=== PATIENT | male | born 1945 | race Caucasian/White ===

== ENCOUNTER 2019-01-31 08:24 | Inpatient (IN) | payer MEDICARE, MEDICAID, SELFPAY ==
[2019-01-31] VITALS (28 sets, daily range): BP systolic 144–1986; BP diastolic 52–109; PULSE 37–89; RESP 14–23; TEMP 36.4–37.2; O2SAT 96–100; BMI 30.4; BMI 30.6
--- NOTE | 2019-01-31 | DI.MRI.S_ITS ---
PROCEDURE: MR STROKE Pre- and post-contrast brain MRI, non-contrast brain MR angiogram, pre- and postcontrast neck MR angiogram INDICATIONS: Left sided weakness TECHNIQUE: Brain: Noncontrast axial T1 spin echo, axial T2 fast spin echo, sagittal and axial FLAIR, coronal T2 fast spin echo, axial gradient echo, axial diffusion and ADC through the brain. After the administration of contrast, axial 3D VIBE of the cranial vasculature and brain. Brain MRA: Non-contrast 3-D time of flight MR angiogram, with multiple cjlqsph-rlfyauuow-aqleezdfri (MIP) reformats performed. Neck MRA: Axial and sagittal TruFISP through the neck. Coronal dynamic MR angiogram during administration of contrast in the arterial and venous phases, with 3-dimenstional iwuwgcd-lvtfjnhwx-suohlrifvt (MIP) reformats constructed from subtraction images. COMPARISON: [facility], CT, CT ANGIO HEAD AND NECK, 01/31/2019, 9:16. [facility], CT, CT CHEST WITHOUT CONTRAST, 01/28/2018, 18:45. [facility], CT, CT HEAD/BRAIN WO CON, 01/31/2019, 8:45. FINDINGS: Image quality: Excellent. BRAIN: CSF spaces: Ventricles are normal in size and shape. Basal cisterns are patent. No extra-axial fluid collections. Brain: No intracranial bleeds or mass effects. Spence-white matter interface is normal. Age-related volume loss and mild small vessel ischemic change. 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 Diffusion weighted images show a vague, subtle small area of increased signal in the region of the body of right caudate extending into the posterior limb of internal capsule, possibly representing a small subacute infarct.. Brainstem appears normal. Normal intravascular flow voids are present. No abnormal intracranial enhancement. Skull and face: Calvarial marrow signal is normal. Orbits appear normal. Sinuses: Sinuses and mastoids are clear. BRAIN MR ANGIOGRAM: No stenoses, aneurysms, or occlusions. NECK MR ANGIOGRAM: Classic 3 vessel arch anatomy. Great vessel origins are widely patent. Internal carotids are widely patent. Codominant vertebral arteries. IMPRESSION: BRAIN MRI: Question very subtle small area of subacute infarct in the body of right caudate and posterior limb of right internal capsule. Age-related volume loss and mild small vessel ischemic change. BRAIN MR ANGIOGRAM: Unremarkable NECK MR ANGIOGRAM: Unremarkable Dictated by: Jareth Cheng M.D. on 01/31/2019 at 16:47 Approved by: Jareth Cheng M.D. on 01/31/2019 at 16:59
--- NOTE | 2019-01-31 | DI.ECHO.S_ITS ---
[facility] +---------+ Hospital +---------+ : : [address] : : : : [place], [place] : : : : [id number] : : : : Phone: [phone] Echocardiogram Report + + :Name: BURTON MARTINEZ Study Date: 02/01/2019 Height: 76 in : :[facility] Exam Location: IS Weight: 251 lb : : Gender: Male BSA: 2.4 m2 : :: 1945 Age: 73 yrs BP: 161/75 mmHg: :Reason For Study: HTN emergency/ CVA : :Ordering Physician: Landy : :Hospitalist Performed By: Bethany Page : :Referring: CAMERON ESPINAL : + + Interpretation Summary Left ventricular systolic function is normal without focal wall motion abnormalities with the ejection fraction visually estimated to be 65-70%. Left ventricular wall thickness is at the upper limits of normal but diastolic function could not be accurately assessed due to atrial fibrillation. There has been no significant change since the previous study. The right ventricle is normal in size and function and is unchanged compared to the previous study. The right ventricular systolic pressure is estimated to be at least 27 mmHg based on an estimated right atrial pressure of 3 mm Hg and is similar compared to the previous study. The left atrium is severely dilated and has significantly increased in size since the prior echo exam while the right atrium is moderately dilated but is unchanged in size. There is no significant valvular heart disease. The aortic root is borderline dilated and measures slightly larger compared to the previous study. The ascending aorta is mildly enlarged but is unchanged in size. The patient was in atrial flutter with heart rates between 46-83 bpm during the exam which is somewhat slower compared to the previous study. Procedure: A two-dimensional transthoracic echocardiogram with color flow and Doppler was performed. The study quality was technically adequate. Comparison is made with the echocardiogram of 01/26/2018. The patient was in atrial flutter with heart rates between 46-83 bpm during the exam. This is somewhat slower compared to the previous study. Left Ventricle: The left ventricle is normal in size. Left ventricular wall thickness is at the upper limits of normal. Left ventricular systolic function is normal without focal wall motion abnormalities. The ejection fraction is estimated to be 65-70%. Diastolic function could not be accurately assessed due to atrial fibrillation. There has been no significant change since the previous study. Right Ventricle: The right ventricle is normal in size and function. This is unchanged compared to the previous study. Atria: The left atrium is severely dilated. The left atrium has significantly increased in size since the prior echo exam. The right atrium is moderately dilated. This is unchanged compared to the previous study. There is no Doppler evidence for an interatrial shunt. Mitral Valve: The mitral valve leaflets appear mildly thickened, but open well. There is trace mitral regurgitation. This is unchanged compared to the previous study. Aortic Valve: The aortic valve is trileaflet. The aortic valve is slightly calcified. The aortic valve opens well. No aortic regurgitation is present. Tricuspid Valve: The tricuspid valve is normal in structure and function. There is trace tricuspid regurgitation. The right ventricular systolic pressure is estimated to be at least 27 mmHg based on an estimated right atrial pressure of 3 mm Hg. This is similar compared to the previous study. Pulmonic Valve: The pulmonic valve is not well visualized. There is no significant valvular heart disease. Great Vessels: The aortic root is borderline dilated. This is slightly larger compared to the previous study. The ascending aorta is mildly enlarged. This is unchanged compared to the previous study. The pulmonary is not well visualized. The IVC is of normal diameter and collapses greater than 50% with a sniff. This suggests a low right atrial pressure of 3 mm Hg. Pericardium/ Pleura There is no pericardial effusion. There is no pleural effusion. MMode/2D Measurements & Calculations LVIDd: 5.0 cm LVOT diam: 2.1 cm LVIDs: 2.9 cm Ao root diam: 3.9 cm FS: 41.9 % asc Aorta Diam: 3.4 cm EPSS: 0.00 cm IVSd: 1.0 cm LVPWd: 1.0 cm LV watson. diameter/BSA (cm/m^2): 2.0 LV sys. diameter/BSA (cm/m^2): 1.2 LA A2 area: 38.5 cm2 RA long axis: 8.1 cm LA A4 area: 38.6 cm2 RA area: 32.8 cm2 LA length (vol): 9.0 cm RA vol: 113.1 ml LA vol: 140.2 ml RA : 46.4 ml/m2 LA vol index: 57.4 ml/m2 IVC diam: 2.1 cm RVD1 (basal): 4.3 cm RVD2 (mid): 3.3 cm TAPSE: 2.8 cm Doppler Measurements & Calculations Ao V2 max: 176.1 cm/sec LVOT Max Rolly: 99.9 cm/sec Ao V2 mean: 110.3 cm/sec LV V1 max P.0 mmHg Ao max P.4 mmHg LV V1 VTI: 20.9 cm Ao mean P.7 mmHg GIOVANNA(I,D): 2.2 cm2 Ao V2 VTI: 34.2 cm GIOVANNA(V,D): 2.0 cm2 sev ratio: 0.61 GIOVANNA indexed to BSA (cm^2/m^2): 0.89 MV E max rolly: 99.3 cm/sec TR max rolly: 246.3 cm/sec MV P1/2t: 80.4 msec TR max P.3 mmHg PA V2 max: 76.3 cm/sec PA V2 mean: 49.2 cm/sec PA mean P.1 mmHg PA Accel Time: 0.09 sec MV P1/2t max rolly: 98.6 cm/sec SV(LVOT): 74.6 ml MVA(P1/2t): 2.7 cm2 Reading Physician:MOON
--- NOTE | 2019-01-31 08:50 | ED.NEUROSD ---
HPI - Neuro Symptoms/Deficit General Chief Complaint: Neuro Symptoms/Deficit Stated Complaint: thinks he had a stroke Time Seen by Provider: 01/31/19 08:45 Source: patient Mode of arrival: ambulatory Limitations: no limitations History of Present Illness HPI Narrative: Patient is a 73-year-old male who presents with left leg weakness and unsteadiness. He states he woke up with leg weakness. He was normal last evening. He woke up got out of bed felt like he was a little unsteady on his feet. He has persistent left arm and hand weakness from head injury. He thought weakness in his legs would wear off. He walked into [place] when he tripped and fell hitting the left frontal part of his head. No nausea vomiting no loss of consciousness. He was unable to drive himself to the emergency department for further evaluation. Is actually noted to be quite hypertensive in the emergency department. Related Data Home Medications Medication Instructions Recorded Confirmed No Known Home Medications 01/31/19 01/31/19 Allergies Allergy/AdvReac Type Severity Reaction Status Date / Time No Known Drug Allergies Allergy Verified 01/31/19 08:37 Review of Systems Review of Systems GENERAL: Denies chills, fatigue, malaise, fever, sweats, travel HEENT: Denies sinus pain, ear pain, sore throat, difficulty swallowing, neck pain RESPIRATORY: Denies dyspnea, cough, wheezing, hemoptysis, sputum. CARDIOVASCULAR: Denies chest pain, palpitations, orthopnea, edema GASTROINTESTINAL: Denies nausea, vomiting, abdominal pain, diarrhea, constipation, melena. : Denies dysuria, frequency, incontinence, hematuria, urinary retention, flank pain. MUSCULOSKELETAL: Denies weakness, joint pain, or bony pain SKIN: No rash, no erythema, no pruritus NEUROLOGIC: See HPI PSYCHIATRIC: No concerning psychosocial issues. 12 point review of systems is negative except for those stated above and HPI FOR[facility]LY [facility] Medical History (Updated 01/31/19 @ 12:22 by Stacy Saldana RN) Closed head injury (Acute) Surgical History (Updated 01/31/19 @ 14:05 by Berry Marshall, [place]) H/O ileostomy (Acute) Family History (Updated 01/31/19 @ 14:05 by Berry Marshall RN) Mother Kidney disease Social History Smoking Status: Former smoker alcohol intake: current Family History (Updated 01/31/19 @ 14:05 by Berry Marshall RN) Mother Kidney disease Social History Smoking Status: Former smoker alcohol intake: current Exam Initial Vital Signs Initial Vital Signs: Vital Signs Temperature 97.6 F 01/31/19 08:37 Pulse Rate 55 L 01/31/19 08:37 Respiratory Rate 17 01/31/19 08:37 Blood Pressure 262/79 H 01/31/19 08:37 Pulse Oximetry 100 01/31/19 08:37 GENERAL: Alert pleasant male no acute distress HEENT: Head left frontal contusion no crepitations no depression CARDIOVASCULAR: Regular rate and rhythm without murmurs, rubs or gallops. RESPIRATORY: Breath sounds equal bilaterally, no wheezes rales or rhonchi. ABDOMEN: Soft, nontender. Normoactive bowel sounds all 4 quadrants. No guarding or rebound. : No CVA tenderness EXTREMITIES: Normal range of motion, no clubbing or edema. Neurovascularly intact NEUROLOGICAL: Alert and oriented x4.Normal gait and speech. patient does some and ataxia in his left hand but no other weakness or ataxia noted. SKIN: Warm, dry, no laceration, no petechiae, no rashes or lesions. Scores NIH Stroke Scale Level of Conciousness: Alert, keenly responsive Ask month/age: Answers both questions correctly. Open/close eyes, close hand: Performs both tasks correctly Best gaze horizontal: Normal Visual orr: No visual loss Facial palsy: Normal symetrical movement Left arm drift: No drift for full 10 sec Right arm drift: No drift for full 10 sec Left leg drift: No drift for full 10 sec Right leg drift: No drift for full 10 sec Limb ataxia: Present in one limb Sensory on face/arms/legs: Normal, no sensory loss Best language: No aphasia, normal Dysarthria: Normal Extinction or inattention: No abnormality Total NIH Stroke scale score: 1 Course Orders Ordered: ED Orders 01/31/19 08:46 Basic Metabolic Panel Stat Complete Blood Count AUTO DIFF Stat Partial Thromboplastin Time Stat Prothrombin Time INR Stat Troponin & CK Cardiac Panel Routine 01/31/19 08:58 CT head/brain wo con Stat EKG-12 Lead Stat 01/31/19 08:59 CT angio head and neck Stat 01/31/19 09:27 Urine Drug Screen, Rapid Stat 01/31/19 12:46 EKG-12 Lead Urgent 01/31/19 13:10 MRSA PCR Stat Urinalysis and Microscopic Routine 02/01/19 05:00 CBC [Complete Blood Count AUTO DIFF] Routine CMP [Comprehensive Metabolic Panel] Routine Hemoglobin A1C% w Est Avg Glu Routine Lipid Panel Routine Magnesium Routine Acetaminophen (Tylenol) 650 mg PO Q6HR PRN PRN Reason: As Needed for Fever/Mild Pain Last Admin: 01/31/19 15:00 Dose: 650 mg Amlodipine Besylate (Norvasc) 10 mg PO DAILY JUSTA Last Admin: 01/31/19 14:59 Dose: 10 mg Bisacodyl (Dulcolax) 10 mg PO DAILY PRN PRN Reason: Constipation Heparin Sodium (Porcine) (Heparin) 5,000 unit SUBCUT BID JUSTA Hydrochlorothiazide (Hydrochlorothiazide) 25 mg PO DAILY JUSTA Last Admin: 01/31/19 14:59 Dose: 25 mg Sodium Chloride (Normal Saline 0.9%) 1,000 mls @ 100 mls/hr IV CONT JUSTA Last Infusion: 01/31/19 12:30 Dose: 100 mls/hr Infusion: 01/31/19 11:45 Dose: 150 mls/hr Admin: 01/31/19 10:00 Dose: 150 mls/hr Nicardipine HCl 25 mg/ Sodium (Chloride) 250 mls @ 50 mls/hr IV TITRATE JUSTA; Protocol Last Titration: 01/31/19 15:51 Dose: 0 mg/hr, 0 mls/hr Titration: 01/31/19 15:35 Dose: 4 mg/hr, 40 mls/hr Titration: 01/31/19 14:45 Dose: 5 mg/hr, 50 mls/hr Titration: 01/31/19 14:15 Dose: 7.5 mg/hr, 75 mls/hr Titration: 01/31/19 13:32 Dose: 5 mg/hr, 50 mls/hr Titration: 01/31/19 13:04 Dose: 2.5 mg/hr, 25 mls/hr Titration: 01/31/19 12:30 Dose: 5 mg/hr, 50 mls/hr Titration: 01/31/19 11:45 Dose: 2.5 mg/hr, 25 mls/hr Titration: 01/31/19 11:33 Dose: 2.5 mg/hr, 25 mls/hr Titration: 01/31/19 11:21 Dose: 2.5 mg/hr, 25 mls/hr Titration: 01/31/19 11:15 Dose: 2.5 mg/hr, 25 mls/hr Titration: 01/31/19 11:10 Dose: 3 mg/hr, 30 mls/hr Titration: 01/31/19 11:05 Dose: 7.5 mg/hr, 75 mls/hr Titration: 01/31/19 11:00 Dose: 5 mg/hr, 50 mls/hr Titration: 01/31/19 10:55 Dose: 5 mg/hr, 50 mls/hr Titration: 01/31/19 10:50 Dose: 3 mg/hr, 30 mls/hr Titration: 01/31/19 10:45 Dose: 0 mg/hr, 0 mls/hr Titration: 01/31/19 10:40 Dose: 3 mg/hr, 30 mls/hr Titration: 01/31/19 10:35 Dose: 3 mg/hr, 30 mls/hr Titration: 01/31/19 10:31 Dose: 10 mg/hr, 100 mls/hr Titration: 01/31/19 10:20 Dose: 7.5 mg/hr, 75 mls/hr Titration: 01/31/19 10:10 Dose: 5 mg/hr, 50 mls/hr Admin: 01/31/19 10:00 Dose: 5 mg/hr, 50 mls/hr Discontinued Medications Aspirin (Aspirin Ec) 325 mg PO NOW ONE Stop: 01/31/19 10:17 Last Admin: 01/31/19 10:15 Dose: 325 mg Labetalol HCl (Trandate) 10 mg IV NOW ONE Stop: 01/31/19 09:36 Last Admin: 01/31/19 10:22 Dose: 10 mg Consultations Consultation #1: [place] neurology consult: No intervention no tPA no sign of large vessel occlusion recommend blood pressure control and heart rate control Time: 10:15 Vital Signs - 8 hr 01/31/19 08:37 01/31/19 08:40 01/31/19 09:00 Temperature 97.6 F Pulse Rate 55 L 50 L 49 L Respiratory Rate 17 17 20 Blood Pressure 262/79 H Blood Pressure [Right Arm] 196/91 H 222/84 H Pulse Oximetry 100 100 100 01/31/19 09:30 01/31/19 10:14 01/31/19 10:22 Temperature Pulse Rate 49 L 89 37 L Respiratory Rate 17 22 Blood Pressure Blood Pressure [Right Arm] 227/86 H 203/99 H Pulse Oximetry 98 99 01/31/19 10:30 01/31/19 10:45 01/31/19 11:00 Temperature Pulse Rate 53 L 51 L 59 L Respiratory Rate 14 15 16 Blood Pressure Blood Pressure [Right Arm] 182/71 H 235/107 H 1986/80 H Pulse Oximetry 01/31/19 11:32 01/31/19 11:45 01/31/19 12:16 Temperature 99 F Pulse Rate 51 L 58 L Respiratory Rate 14 14 17 Blood Pressure 190/73 H Blood Pressure [Right Arm] 189/71 H 177/109 H Pulse Oximetry 98 98 98 01/31/19 12:30 01/31/19 12:45 01/31/19 13:00 Temperature Pulse Rate 64 71 54 L Respiratory Rate 14 23 17 Blood Pressure 185/87 H 183/89 H 155/71 H Blood Pressure [Right Arm] Pulse Oximetry 98 98 99 01/31/19 13:15 01/31/19 13:30 01/31/19 13:45 Temperature Pulse Rate 69 45 L 89 Respiratory Rate 17 15 16 Blood Pressure 188/85 H 192/82 H 167/87 H Blood Pressure [Right Arm] Pulse Oximetry 96 99 97 01/31/19 14:00 01/31/19 14:15 Temperature Pulse Rate 69 81 Respiratory Rate 18 21 Blood Pressure 178/77 H 201/108 H Blood Pressure [Right Arm] Pulse Oximetry 98 99 MDM - Neuro Symptoms/Deficit Lab Data Attestation: I reviewed the patient's lab results. Result diagrams: 01/31/19 08:46 01/31/19 08:46 Lab Results 01/31/19 01/31/19 01/31/19 Range/Units 08:46 08:46 08:46 WBC 8.7 (4.5-11.0) X10^3/uL RBC 4.79 (4.5-5.9) X10^6/uL Hgb 14.7 (13.5-17.5) g/dL Hct 43.2 (41-53) % MCV 90.1 (80-100) fL MCH 30.6 (26-34) PG MCHC 33.9 (30-36) % RDW 13.0 (11.6-14.8) % Plt Count 131 L (150-400) X10^3/uL Neut % (Auto) 80.1 H (50-75) % Lymph % (Auto) 11.3 L (25-40) % [place] % (Auto) 5.4 (3-14) % Eos % (Auto) 2.2 (2-4) % Baso % (Auto) 1.0 (0-2) % Neut # (Auto) 7000 (4175-7448) /uL Lymph # (Auto) 1000 L (2794-3875) /uL [place] # (Auto) 500 (0-900) /uL Eos # (Auto) 200 (0-450) /uL Baso # (Auto) 100 (0-100) /uL PT 12.0 (10.1-12.7) SECONDS INR 1.0 (0.9-1.3) APTT 30 (26.4-36.2) SECONDS Sodium 141 (137-145) mmol/L Potassium 4.1 (3.4-5.1) mmol/L Chloride 105 (98-107) mmol/L Carbon Dioxide 26 (22-32) mmol/L BUN 19 (9-20) mg/dL Creatinine 1.30 H (0.66-1.25) mg/dL Estimated GFR 54.0 L (>60) mL/min BUN/Creatinine Ratio 14.6 (6-22) Glucose 118 H (80-110) mg/dL Calcium 9.2 (8.4-10.2) mg/dL Total Creatine Kinase (55-170) U/L CK-MB (CK-2) (<2.37) ng/mL CK-MB (CK-2) Rel Index (1.5-5.0) % Troponin I (0.01-0.034) ng/mL Urine Color Urine Appearance Urine pH (4.5-8.0) Ur Specific [place] (1.000-1.035) Urine Protein (Negative) Urine Glucose (UA) (Negative) g/dL Urine Ketones (NEGATIVE) Urine Occult Blood (Negative) Urine Nitrate (Negative) Urine Bilirubin (NEGATIVE) Urine Urobilinogen (0.2) E.U./dL Ur Leukocyte Esterase (NEGATIVE) Urine RBC (0-5/HPF) Urine WBC (0-5/HPF) Urine Bacteria (None) Ur Culture Indicated? Micro UA Comment Nasal Screen MRSA (PCR) (Negative) Urine Opiates Screen (Negative) Ur Oxycodone Screen (Negative) Urine Methadone Screen (Negative) Ur Barbiturates Screen (Negative) U Tricyclic Antidepress (Negative) Ur Phencyclidine Scrn (Negative) Ur Amphetamines Screen (Negative) U Methamphetamines Scrn (Negative) Ur MDMA Scrn (Ecstasy) (Negative) U Benzodiazepines Scrn (Negative) Urine Cocaine Screen (Negative) U Marijuana (THC) Screen (Negative) 01/31/19 01/31/19 01/31/19 Range/Units 08:46 09:27 13:10 WBC (4.5-11.0) X10^3/uL RBC (4.5-5.9) X10^6/uL Hgb (13.5-17.5) g/dL Hct (41-53) % MCV (80-100) fL MCH (26-34) PG MCHC (30-36) % RDW (11.6-14.8) % Plt Count (150-400) X10^3/uL Neut % (Auto) (50-75) % Lymph % (Auto) (25-40) % [place] % (Auto) (3-14) % Eos % (Auto) (2-4) % Baso % (Auto) (0-2) % Neut # (Auto) (4184-7689) /uL Lymph # (Auto) (0830-5277) /uL [place] # (Auto) (0-900) /uL Eos # (Auto) (0-450) /uL Baso # (Auto) (0-100) /uL PT (10.1-12.7) SECONDS INR (0.9-1.3) APTT (26.4-36.2) SECONDS Sodium (137-145) mmol/L Potassium (3.4-5.1) mmol/L Chloride (98-107) mmol/L Carbon Dioxide (22-32) mmol/L BUN (9-20) mg/dL Creatinine (0.66-1.25) mg/dL Estimated GFR (>60) mL/min BUN/Creatinine Ratio (6-22) Glucose (80-110) mg/dL Calcium (8.4-10.2) mg/dL Total Creatine Kinase 114 (55-170) U/L CK-MB (CK-2) 3.20 H (<2.37) ng/mL CK-MB (CK-2) Rel Index 2.8 (1.5-5.0) % Troponin I 0.015 (0.01-0.034) ng/mL Urine Color Urine Appearance Urine pH (4.5-8.0) Ur Specific [place] (1.000-1.035) Urine Protein (Negative) Urine Glucose (UA) (Negative) g/dL Urine Ketones (NEGATIVE) Urine Occult Blood (Negative) Urine Nitrate (Negative) Urine Bilirubin (NEGATIVE) Urine Urobilinogen (0.2) E.U./dL Ur Leukocyte Esterase (NEGATIVE) Urine RBC (0-5/HPF) Urine WBC (0-5/HPF) Urine Bacteria (None) Ur Culture Indicated? Micro UA Comment Nasal Screen MRSA (PCR) Negative for mrsa (Negative) Urine Opiates Screen Negative (Negative) Ur Oxycodone Screen Negative (Negative) Urine Methadone Screen Negative (Negative) Ur Barbiturates Screen Negative (Negative) U Tricyclic Antidepress Negative (Negative) Ur Phencyclidine Scrn Negative (Negative) Ur Amphetamines Screen Negative (Negative) U Methamphetamines Scrn Negative (Negative) Ur MDMA Scrn (Ecstasy) Negative (Negative) U Benzodiazepines Scrn Negative (Negative) Urine Cocaine Screen Negative (Negative) U Marijuana (THC) Screen Negative (Negative) 01/31/19 Range/Units 13:10 WBC (4.5-11.0) X10^3/uL RBC (4.5-5.9) X10^6/uL Hgb (13.5-17.5) g/dL Hct (41-53) % MCV (80-100) fL MCH (26-34) PG MCHC (30-36) % RDW (11.6-14.8) % Plt Count (150-400) X10^3/uL Neut % (Auto) (50-75) % Lymph % (Auto) (25-40) % [place] % (Auto) (3-14) % Eos % (Auto) (2-4) % Baso % (Auto) (0-2) % Neut # (Auto) (7327-2710) /uL Lymph # (Auto) (9248-6166) /uL [place] # (Auto) (0-900) /uL Eos # (Auto) (0-450) /uL Baso # (Auto) (0-100) /uL PT (10.1-12.7) SECONDS INR (0.9-1.3) APTT (26.4-36.2) SECONDS Sodium (137-145) mmol/L Potassium (3.4-5.1) mmol/L Chloride (98-107) mmol/L Carbon Dioxide (22-32) mmol/L BUN (9-20) mg/dL Creatinine (0.66-1.25) mg/dL Estimated GFR (>60) mL/min BUN/Creatinine Ratio (6-22) Glucose (80-110) mg/dL Calcium (8.4-10.2) mg/dL Total Creatine Kinase (55-170) U/L CK-MB (CK-2) (<2.37) ng/mL CK-MB (CK-2) Rel Index (1.5-5.0) % Troponin I (0.01-0.034) ng/mL Urine Color Yellow Urine Appearance Clear Urine pH 7.5 (4.5-8.0) Ur Specific [place] 1.015 (1.000-1.035) Urine Protein Negative (Negative) Urine Glucose (UA) Negative (Negative) g/dL Urine Ketones Negative (NEGATIVE) Urine Occult Blood Trace-intact (Negative) Urine Nitrate Negative (Negative) Urine Bilirubin Negative (NEGATIVE) Urine Urobilinogen 0.2 (0.2) E.U./dL Ur Leukocyte Esterase Negative (NEGATIVE) Urine RBC None seen (0-5/HPF) Urine WBC None seen (0-5/HPF) Urine Bacteria None seen (None) Ur Culture Indicated? Cult not indicated Micro UA Comment Microscopic normal Nasal Screen MRSA (PCR) (Negative) Urine Opiates Screen (Negative) Ur Oxycodone Screen (Negative) Urine Methadone Screen (Negative) Ur Barbiturates Screen (Negative) U Tricyclic Antidepress (Negative) Ur Phencyclidine Scrn (Negative) Ur Amphetamines Screen (Negative) U Methamphetamines Scrn (Negative) Ur MDMA Scrn (Ecstasy) (Negative) U Benzodiazepines Scrn (Negative) Urine Cocaine Screen (Negative) U Marijuana (THC) Screen (Negative) Point of Care Testing Glucose POC [address] scan - head: Radiologist's impression: PROCEDURE: CT HEAD/BRAIN WO CON INDICATIONS: unbalanced. weakness - sudden onset slurred speech TECHNIQUE: Noncontrast 4.5 mm thick angled axial sections acquired from the foramen magnum to the vertex, with coronal and sagittal reformats. For radiation dose reduction, the following was used: automated exposure control, adjustment of mA and/or kV according to patient size. COMPARISON: None. FINDINGS: Image quality: Excellent. CSF spaces: Basal cisterns are patent. No extra-axial fluid collections. The ventricles are symmetric in size and shape. Brain: No intracranial bleeds or masses. There is cerebral volume loss for age, with resultant ventricular and sulcal prominence. There are periventricular and deep white matter chronic small vessel ischemic changes. There is intracranial internal carotid artery atherosclerosis. Skull and face: Calvarium and visualized facial bones appear intact, without suspicious lesions. Sinuses: Visualized sinuses and mastoids are clear. IMPRESSION: No acute intracranial process is seen. If there is strong clinical suspicion for an acute stroke, please consider an MRI for further evaluation, as it is more sensitive (assuming that there is no contraindication to MRI). Dictated by: Ganesh Paige M.D. on 01/31/2019 at 8:09 CTA angio head/neck: Radiologist's impression: PROCEDURE: CT ANGIO HEAD AND NECK INDICATIONS: left leg weakness TECHNIQUE: Noncontrast images were performed earlier in the day and not repeated. After the administration of intravenous contrast, 1 mm thick sections acquired from the aortic arch through the [place]. Post-contrast 4.5 mm thick sections then re-acquired from the foramen magnum to the vertex. 3-dimensional [id number] (MIP) and/or volume rendering reformats were acquired of the central intracranial vasculature and neck separately. COMPARISON: [facility], CT, CT HEAD/BRAIN WO CON, 01/31/2019, 8:45. FINDINGS: Image quality: There is streak artifact from dental amalgam. BRAIN: CSF spaces: Ventricles are normal in size and shape. Basal cisterns are patent. No extra-axial fluid collections. Brain: No midline shift. No intracranial bleeds or masses. [place]-white matter interface appears intact. Skull and face: Calvarium and facial bones appear intact, without suspicious lesions. Orbits appear normal. Sinuses: Sinuses and mastoids are clear. HEAD CT ANGIOGRAPHY: Anterior circulation: Intracranial internal carotid arteries are normal in size and flow. The flow within the paired anterior cerebral arteries is normal and symmetric. The flow within the middle cerebral arteries is normal and symmetric. The anterior communicating artery is seen. No aneurysms are seen. Posterior circulation: Visualized portions of the vertebral arteries demonstrate normal caliber, and join to form a normal appearing basilar artery. Flow within the posterior cerebral arteries is normal and symmetric. No aneurysms are seen. NECK CT ANGIOGRAPHY: Carotid system: The great vessels demonstrate a conventional anatomy as they arise from the aortic arch. The origins of the common carotid arteries appear patent. The common carotid arteries demonstrate normal caliber and courses. The bifurcation regions demonstrate atherosclerotic irregularity. There is 40-50% stenosis seen involving the left proximal internal carotid artery. Posterior circulation: The origins of the vertebral arteries both appear widely patent. The more superior extracranial portions of both vertebral arteries also demonstrate normal courses. Focal irregularity is seen involving the left vertebral artery at the inferior C2 level, with approximately 50% narrowing. The vertebral arteries join to form a normal appearing basilar artery. Soft tissues: Visualized neck soft tissues demonstrate no suspicious abnormalities. Bones: No suspicious bony lesions. Visualized cervical spine appears normally aligned. Age-appropriate bony degenerative changes are seen. IMPRESSION: No significant intracranial arterial abnormality is seen. No hemodynamically significant stenosis is seen of the arteries of the neck, although there is a 40-50% stenosis seen involving the left proximal internal carotid artery. Approximately 50% narrowing seen involving the left vertebral artery at the inferior C2 level. Any quantitative measurements of stenosis were performed using NASCET criteria. Dictated by: Ganesh Paige M.D. on 01/31/2019 at 8:44 ECG Data Attestation: I personally reviewed and interpreted this ECG as follows: Prior ECG tracings: available for review Interpretation: No P-waves a director quality systems. It fibrillation at rate [address] changes PVC similar to previous EKG in 2017. [facility] Narrative Medical decision making narrative: Patient is quite hypertensive upon arrival. He has some ataxia in his left hand which seems to be old. Otherwise his neurovascular exam is negative. He states that his legs feel overall weak. He had a negative head CT and negative CT angio I discussed case with Neurology stating I recommended controlling his blood pressure. I believe patient have hypertensive emergency. Patient is not a candidate for labetalol his heart rate does drop to 37 and [address] him on a nicardipine drip which he responded to well and actually his heart rate improved. He overall feels the same. He is also at risk for stroke with untreated atrial fibrillation and hypertension. accepts patient Critical Care Time Critical Care Time: Yes Total Critical Care Time: 30 Attestation: The high probability of a clinically significant, sudden or life threatening deterioration of the [cardiovascular] system(s) required my full and direct attention, intervention and personal management. The aggregate critical care time was 30 minutes. This time is in addition to time spent performing reported procedures but includes the following: [x] Data Review and interpretation [x] Patient assessment and monitoring of vital signs [x] Documentation [x] Medication orders and management Discharge Plan Departure Patient Disposition: Admitted As Inpatient Clinical Impression: Hypertensive crisis Discharge Date/Time: 01/31/19 12:22 Interventions: ED Discharge Assessment Last Done: 01/31/19 12:22 Admit Date/Time: 01/31/19 11:37 Admit Provider: Ludy Castillo
--- NOTE | 2019-01-31 08:58 | DI.CT.S_ITS ---
PROCEDURE: CT HEAD/BRAIN WO CON INDICATIONS: unbalanced. weakness - sudden onset slurred speech TECHNIQUE: Noncontrast 4.5 mm thick angled axial sections acquired from the foramen magnum to the vertex, with coronal and sagittal reformats. For radiation dose reduction, the following was used: automated exposure control, adjustment of mA and/or kV according to patient size. COMPARISON: None. FINDINGS: Image quality: Excellent. CSF spaces: Basal cisterns are patent. No extra-axial fluid collections. The ventricles are symmetric in size and shape. Brain: No intracranial bleeds or masses. There is cerebral volume loss for age, with resultant ventricular and sulcal prominence. There are periventricular and deep white matter chronic small vessel ischemic changes. There is intracranial internal carotid artery atherosclerosis. Skull and face: Calvarium and visualized facial bones appear intact, without suspicious lesions. Sinuses: Visualized sinuses and mastoids are clear. IMPRESSION: No acute intracranial process is seen. If there is strong clinical suspicion for an acute stroke, please consider an MRI for further evaluation, as it is more sensitive (assuming that there is no contraindication to MRI). Dictated by: Ganesh Paige M.D. on 01/31/2019 at 8:09 Approved by: Ganesh Paige M.D. on 01/31/2019 at 8:10
--- NOTE | 2019-01-31 08:59 | DI.CT.S_ITS ---
PROCEDURE: CT ANGIO HEAD AND NECK INDICATIONS: left leg weakness TECHNIQUE: Noncontrast images were performed earlier in the day and not repeated. After the administration of intravenous contrast, 1 mm thick sections acquired from the aortic arch through the [place] of [place]. Post-contrast 4.5 mm thick sections then re-acquired from the foramen magnum to the vertex. 3-dimensional tdgaucx-eglcntlec-fmomcemcyl (MIP) and/or volume rendering reformats were acquired of the central intracranial vasculature and neck separately. COMPARISON: [facility], CT, CT HEAD/BRAIN WO CON, 01/31/2019, 8:45. FINDINGS: Image quality: There is streak artifact from dental amalgam. BRAIN: CSF spaces: Ventricles are normal in size and shape. Basal cisterns are patent. No extra-axial fluid collections. Brain: No midline shift. No intracranial bleeds or masses. Spence-white matter interface appears intact. Skull and face: Calvarium and facial bones appear intact, without suspicious lesions. Orbits appear normal. Sinuses: Sinuses and mastoids are clear. HEAD CT ANGIOGRAPHY: Anterior circulation: Intracranial internal carotid arteries are normal in size and flow. The flow within the paired anterior cerebral arteries is normal and symmetric. The flow within the middle cerebral arteries is normal and symmetric. The anterior communicating artery is seen. No aneurysms are seen. Posterior circulation: Visualized portions of the vertebral arteries demonstrate normal caliber, and join to form a normal appearing basilar artery. Flow within the posterior cerebral arteries is normal and symmetric. No aneurysms are seen. NECK CT ANGIOGRAPHY: Carotid system: The great vessels demonstrate a conventional anatomy as they arise from the aortic arch. The origins of the common carotid arteries appear patent. The common carotid arteries demonstrate normal caliber and courses. The bifurcation regions demonstrate atherosclerotic irregularity. There is 40-50% stenosis seen involving the left proximal internal carotid artery. Posterior circulation: The origins of the vertebral arteries both appear widely patent. The more superior extracranial portions of both vertebral arteries also demonstrate normal courses. Focal irregularity is seen involving the left vertebral artery at the inferior C2 level, with approximately 50% narrowing. The vertebral arteries join to form a normal appearing basilar artery. Soft tissues: Visualized neck soft tissues demonstrate no suspicious abnormalities. Bones: No suspicious bony lesions. Visualized cervical spine appears normally aligned. Age-appropriate bony degenerative changes are seen. IMPRESSION: No significant intracranial arterial abnormality is seen. No hemodynamically significant stenosis is seen of the arteries of the neck, although there is a 40-50% stenosis seen involving the left proximal internal carotid artery. Approximately 50% narrowing seen involving the left vertebral artery at the inferior C2 level. Any quantitative measurements of stenosis were performed using NASCET criteria. Dictated by: Ganesh Paige M.D. on 01/31/2019 at 8:44 Approved by: Ganesh Paige M.D. on 01/31/2019 at 8:51
[2019-01-31 09:10] LABS: Add Manual Diff / Slide Review NO; Basophils Absolute Auto 100 /uL (0-100); Eosinophils Absolute Auto 200 /uL (0-450); Eosinophils Percent Auto 2.2 % (2-4); Hematocrit 43.2 % (41-53); Hemoglobin 14.7 g/dL (13.5-17.5); Lymphocytes Absolute Auto 1000 /uL (1100-4500); Lymphocytes Percent Auto 11.3 % (25-40); Mean Corpuscular HGB Conc 33.9 % (30-36); Mean Corpuscular Hemoglobin 30.6 PG (26-34); Mean Corpuscular Volume 90.1 fL (80-100); Monocytes Absolute Auto 500 /uL (0-900); Monocytes Percent Auto 5.4 % (3-14); Neutrophils Absolute Auto 7000 /uL (1500-7000); Neutrophils Percent Auto 80.1 % (50-75); Platelet Count 131 X10^3/uL (150-400); Red Blood Cell Count 4.79 X10^6/uL (4.5-5.9); White Blood Cell Count 8.7 X10^3/uL (4.5-11.0)
[2019-01-31 09:12] LABS: PTT Partial Thromboplastin Tim 30 SECONDS (26.4-36.2)
[2019-01-31 09:14] LABS: BUN Creatinine Ratio 14.6 (6-22); Blood Urea Nitrogen 19 mg/dL (9-20); Calcium 9.2 mg/dL (8.4-10.2); Carbon Dioxide 26 mmol/L (22-32); Chloride 105 mmol/L (98-107); Glucose 118 mg/dL (80-110); Potassium 4.1 mmol/L (3.4-5.1); Sodium 141 mmol/L (137-145)
[2019-01-31 09:50] LABS: HEMOLYSIS 84 (0-50)
[2019-01-31] MEDS: NICARDIPINE 25 MG in SODIUM CHLORIDE 0.9% 240 ML 50 ML IV (10:00)
[2019-01-31] MEDS: SODIUM CHLORIDE 0.9% 1,000 ML 150 ML IV (10:00)
[2019-01-31] MEDS: ASPIRIN EC 325 MG TABLET PO (10:15)
[2019-01-31] MEDS: LABETALOL 20 MG/4 ML SYRINGE 10 MG IV (10:22)
[2019-01-31 10:50] LABS: Urine Amphetamines Negative (Negative); Urine Barbiturates Negative (Negative); Urine Benzodiazepines Negative (Negative); Urine Cocaine Negative (Negative); Urine MDMA Negative (Negative); Urine Methadone Negative (Negative); Urine Methamphetamines Negative (Negative); Urine Morphine/Opi cutoff 2000 Negative (Negative); Urine Oxycodone Negative (Negative); Urine Phencyclidine Negative (Negative); Urine Tetrahydrocannabinol Negative (Negative); Urine Tricyclic Antidepressant Negative (Negative)
[2019-01-31 13:47] LABS: Bacteria Urine None Seen; RBC Urine None Seen (0-5/HPF); WBC Urine None Seen (0-5/HPF)
[2019-01-31 13:56] LABS: Appearance Urine UA CLEAR; Bilirubin Urine UA NEGATIVE (NEGATIVE); Color Urine UA YELLOW; Glucose Urine UA NEGATIVE (Negative); Ketones Urine UA NEGATIVE (NEGATIVE); Leukocyte Esterase Urine UA NEGATIVE (NEGATIVE); Nitrite Urine UA NEGATIVE (Negative); Occult Blood Urine UA TRACE-INTACT (Negative); Protein Urine UA NEGATIVE (Negative); Specific Gravity Urine UA 1.015 (1.000-1.035); Urobilinogen Urine UA 0.2 E.U./dL (0.2); pH Urine UA 7.5 (4.5-8.0)
[2019-01-31 14:48] LABS: Culture Indicated Urine Cult Not Indicated; Urine Comments Microscopic Normal
[2019-01-31] MEDS: AMLODIPINE 5 MG TABLET 10 MG PO (14:59)
[2019-01-31] MEDS: hydroCHLOROthiazide 25 MG TABLET PO (14:59)
[2019-01-31] MEDS: ACETAMINOPHEN 325 MG TABLET 650 MG PO ×2 (15:00→21:02)
[2019-01-31 15:32] LABS: Creatine Kinase 114 U/L (55-170)
[2019-01-31 15:42] LABS: Troponin I 0.015 ng/mL (0.01-0.034)
[2019-01-31 15:47] LABS: CKMB % Relative Index 2.8 % (1.5-5.0)
--- NOTE | 2019-01-31 15:53 | PC.NURSE ---
Addendum entered by Taylor Alcarza R.N. 01/31/19 22:20: Pt's HR mostly 42, but is frequently dropping as low as 34 briefly. B/P 168/93. Chris HAYES notified. Addendum entered by Taylor Alcaraz R.N. 01/31/19 20:43: B/P has been labile. SBP 131-175/ [id number]. HR mostly sustaining mid 40s. Pt asymptomatic at rest. Bed alarm on. Chris HAYES and Ludy Castillo MD notified of HR. Original Note: nadir note Pt B/P 164/69 on 5 mg/hr nicardipine gtt. Decreased to 4 mg/hr. Gtt stopped per Dr. Castillo for MRI.
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
[2019-01-31] MEDS: SODIUM CHLORIDE 0.9% 1,000 ML 100 ML IV (19:56)
[2019-01-31] MEDS: ATORVASTATIN 20 MG TABLET 40 MG PO (21:02)
[2019-01-31] MEDS: HEPARIN 5,000 UNIT/ML VIAL 5000 UNIT SUBCUT (21:02)
[2019-02-01] VITALS (17 sets, daily range): BP systolic 137–213; BP diastolic 66–106; PULSE 43–66; RESP 12–20; TEMP 36.9–37.6; O2SAT 95–98
[2019-02-01] MEDS: ACETAMINOPHEN 325 MG TABLET 650 MG PO (05:00)
[2019-02-01 05:09] LABS: Add Manual Diff / Slide Review NO; Basophils Absolute Auto 100 /uL (0-100); Basophils Percent Auto 1.2 % (0-2); Eosinophils Absolute Auto 300 /uL (0-450); Hematocrit 40.1 % (41-53); Hemoglobin 13.9 g/dL (13.5-17.5); Lymphocytes Absolute Auto 1100 /uL (1100-4500); Lymphocytes Percent Auto 15.9 % (25-40); Mean Corpuscular HGB Conc 34.7 % (30-36); Mean Corpuscular Hemoglobin 30.7 PG (26-34); Mean Corpuscular Volume 88.4 fL (80-100); Monocytes Absolute Auto 500 /uL (0-900); Monocytes Percent Auto 7.6 % (3-14); Neutrophils Absolute Auto 5000 /uL (1500-7000); Neutrophils Percent Auto 71.3 % (50-75); Platelet Count 122 X10^3/uL (150-400); Red Blood Cell Count 4.53 X10^6/uL (4.5-5.9); Red Cell Distribution Width 13.2 % (11.6-14.8)
[2019-02-01 05:23] LABS: Hemoglobin A1C% w Est Avg Glu 5.4 % (4.0-6.0)
[2019-02-01 05:27] LABS: Alanine Aminotransferase 21 IU/L (21-72); Albumin 3.7 g/dL (3.5-5.0); Albumin Globulin Ratio 1.3 (1.0-2.8); Alkaline Phosphatase 79 U/L (38-126); Aspartate Aminotransferase 26 IU/L (17-59); BUN Creatinine Ratio 13.3 (6-22); Bilirubin Total 1.2 mg/dL (0.2-1.3); Blood Urea Nitrogen 16 mg/dL (9-20); Calcium 8.9 mg/dL (8.4-10.2); Carbon Dioxide 25 mmol/L (22-32); Chloride 106 mmol/L (98-107); Cholesterol 140 mg/dL (140-199); Estimated Glomerular Filt Rate 59.2 mL/min (>60); Globulin 2.9 g/dL (1.7-4.1); Glucose 99 mg/dL (80-110); HDL Cholesterol 39 mg/dL (40-60); HEMOLYSIS < 15 (0-50); LDL Cholesterol Calculated 77 mg/dL (<100); Potassium 3.6 mmol/L (3.4-5.1); Sodium 139 mmol/L (137-145); Total Protein 6.6 g/dL (6.3-8.2); Triglycerides 122 mg/dL (35-150)
[2019-02-01] MEDS: SODIUM CHLORIDE 0.9% 1,000 ML 100 ML IV (05:50)
[2019-02-01] MEDS: hydroCHLOROthiazide 25 MG TABLET PO ×2 (06:47→08:49)
[2019-02-01] MEDS: AMLODIPINE 5 MG TABLET 10 MG PO (06:47)
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
[2019-02-01] MEDS: HEPARIN 5,000 UNIT/ML VIAL 5000 UNIT SUBCUT ×2 (08:49→20:58)
[2019-02-01] MEDS: LOSARTAN 50 MG TABLET PO ×2 (08:49→20:59)
[2019-02-01] MEDS: ASPIRIN EC 81 MG TABLET PO (08:49)
--- NOTE | 2019-02-01 12:05 | PT.IPTN ---
Current Diagnoses Hypertensive emergency (01/31/19) Physical Therapy Treatment Note M3 PT-IP Subjective Start: 02/01/19 13:53 Freq: NEEDED Status: Active Protocol: Document 02/01/19 12:05 AB (Rec: 02/01/19 13:55 AB [id number]) Subjective Physical Therapy Visit Type Notes called ICU nurse and pt is with OT doing a shower. After showering, OT informed PT that pt is going to have echo done in a few minutes. will check on pt in the afternoon.
--- NOTE | 2019-02-01 14:17 | ST.IPSCREEN ---
Dysphagia and speech/language screened secondary to new CVA. Pt was conversantand was able to follow directions without difficulty no s/sx dysarthria/aphasia. No ST indicated at tis time.
--- NOTE | 2019-02-01 15:20 | PT.IIE ---
Current Diagnoses Hypertensive emergency (01/31/19) Surgical History (Last Updated 02/01/19 @ 07:31 by Ludy Castillo DO) H/O abdominal surgery (Acute) H/O exploratory laparotomy (Acute) H/O ileostomy (Acute) History of hemicolectomy (Acute) Hx of appendectomy (Acute) Hx of cholecystectomy (Acute) Hx of colonoscopy (Acute) Medical History (Last Updated 02/01/19 @ 07:31 by Ludy Castillo DO) CVA (cerebral vascular accident) (Acute) Chronic kidney disease (Acute) Closed head injury (Acute) Diverticulitis of colon with perforation (Acute) Diverticulosis (Acute) Fistula of gallbladder (Acute) Hypertension (Acute) Paroxysmal atrial fibrillation (Acute) Traumatic brain injury (Acute) Physical Therapy Inpatient Evaluation/Re-Eval M1 PT/OT-IP Prior Functional Status Start: 02/01/19 15:24 Freq: NEEDED Status: Active Protocol: Document 02/01/19 15:24 [facility] (Rec: 02/01/19 16:15 [facility] [id number]) Medical Review Prior Functional Status Medical History Reviewed Yes Diet/Fluid Consistency Regular Thin Liquids Communication Independent Mobility and Gait Prior independent with no device. Activities of Daily Living and IADL's Pt indepedent with ADL's, showers at [facility] as currently homeless. Pt has meals at [place], uses the bathroom at [employer], goes to the library to stay during the day, and sleeping in his car. Pt states does have a studio and storage but too filled up to live in now. Social History Living Arrangements Homeless Additional Social History Comment Pt states shower at [place] has bars but no seating and has to stand for showers. M2 PT-IP Current Condition Start: 02/01/19 13:53 Freq: NEEDED Status: Active Protocol: Document 02/01/19 15:20 AB (Rec: 02/01/19 17:28 AB [id number]) Physical Therapy Current Condition Current Condition Evaluation Date 02/01/19 Treatment Diagnosis CVA; difficulty in walking Onset Date 01/31/19 Precautions Other Precautions Falls M3 PT-IP Subjective Start: 02/01/19 13:53 Freq: NEEDED Status: Active Protocol: Document 02/01/19 15:20 AB (Rec: 02/01/19 17:28 AB [id number]) Subjective Physical Therapy Visit Type Type Initial Evaluation Visit Start Time 15:20 Visit Stop Time 15:54 Total Visit Minutes 34 Number of POCKET SETTER Visits 0 Physical Therapy Visit Comments Patient Comments pt agreed to do PT Therapy Pain Assessment Pain Present Pain Present Denied Pain M4 PT-IP Mobility and Gait Start: 02/01/19 13:53 Freq: NEEDED Status: Active Protocol: Document 02/01/19 15:20 AB (Rec: 02/01/19 17:28 AB [id number]) PT-Bed Mobility Assessment Supine to Sit Supine to Sit Contact Guard Assistance Sit to Supine Sit to Supine Contact Guard Assistance PT-Transfer Assessment Sit to and From Stand Sit to and from Stand Moderate Assistance 1 Person Assistance Use of Upper Extremities Equipment Transfer Assistive Device Gait Belt Front Wheeled Walker Orthotic/Prosthetic Devices or Brace: No Transfers Transfer Destination Toilet Transfer Technique pt ambulated to the toilet using FWW Transfer Ability Level of Assist Moderate Assistance Maximum Assistance Comments Mobility Comments pt requested to use the toilet . pt can be impulsive. completed supine to sit CGA. LOB posteriorly requiring min A for stability sitting on EOB . pt completed sit to stand mod A and cues. pt ambulated using FWW to the toilet ~ 12 ft requiring mod to max A and max cues. pt with ataxic gait and tends to drag LLE to advance. pt ambulated back to the bed using FWW mod to max A and max cues for weight shifting and increase LLE elevation. pt required min A to maintain sitting balance on EOB. completed sit to stand mod A and cues. was able to maintain standing using FWW for support mod A while NAC assist pt with brief change. pt assisted back to bed and required CGA and cues. positioned pt in bed. call light and table placed within reach. Gait Assessment Gait Gait Assistance Required: Moderate Assistance Maximum Assistance Distance (Feet) 12 Able to Maintain Weight Bearing Status Yes During Gait Assistive Devices Assistive Device Gait Belt Front Wheeled Walker Orthotic/Prosthetic Devices or Brace: No Gait Deviations General Gait Pattern Ataxic Decreased Stride Length Decreased Feet Clearance Step-to Gait Factors Limiting Gait Function Factors Limiting Gait Function Decreased Activity Tolerance Decreased Sensation Decreased Strength Difficulty Following Directions Incoordination Poor Balance Poor Safety Awareness PT-Balance Assessment Sitting Balance and Reactions Static Sitting Balance Ability Fair Dynamic Sitting Balance Ability Poor Standing Balance and Reactions Static Standing Balance Ability Poor Dynamic Standing Balance Ability Poor Device Used FWW M5 PT-IP Objective Assessments Start: 02/01/19 13:53 Freq: NEEDED Status: Active Protocol: Document 02/01/19 15:20 AB (Rec: 02/01/19 17:28 AB [id number]) Orientation Orientation/Cognition Level of Alertness Alert Orientation Name Place Situation Gross Range of Motion Lower Extremity ROM Assessment Within Functional Limits Strength Lower Extremity Strength Assessment Within Functional Limits Muscle Tone Muscle Tone WNL Yes Other Assessments Other Other Assessments pt presents with incoordination and decrease motor planning during mobility and can be impulsive. M6 PT-IP Treatment Start: 02/01/19 13:53 Freq: NEEDED Status: Active Protocol: Document 02/01/19 15:20 AB (Rec: 02/01/19 17:28 AB [id number]) Physical Therapy Treatment Education Education Provided Safety M7 PT-IP Assessment and Plan Start: 02/01/19 13:53 Freq: NEEDED Status: Active Protocol: Document 02/01/19 15:20 AB (Rec: 02/01/19 17:28 AB [id number]) PT Summary Assessment and Plan Potential Rehabilitation Potential Good Status of Condition at Evaluation Evolving Summary Impairments Pain ROM Strength Balance Coordination Sensation Tone Cognition Bed Mobility Transfers Gait Activity Tolerance Assessment Summary pt requiring mod to max A with mobility and presents with decrease trunk control and unsteady gait. pt will benefit from acute rehab. Goals Bed Mobility Goal Independent Transfer Goal Standby Assistance Front Wheeled Walker Gait Goal Standby Assistance Front Wheel Walker Gait Distance 200 Other Goals up/down 5 steps 1 rail CGA Days to Meet Goals 10 Frequency of Treatment Frequency Of Treatment Twice a Day Treatment Plan Physical Therapy Treatment Plan Bed Mobility Training Transfer Training Gait Training Therapeutic Exercise Balance Retraining Post Op Education Discharge Planning Hot or Cold Pack Neuromuscular Re-ed Coordination Retraining Manual Therapy Recommendations To Nursing Amount of Assist Needed 2 Person Assist Discharge Recommendations PT Discharge Recommendations Acute Rehab Equipment Needed for Home Before FWW: if pt is going home Discharge
--- NOTE | 2019-02-01 15:32 | PC.NURSE ---
Arabella shift note: Received patient from ICU to room 209, report at bedside from Berry RN. Patient awake, alert, and pleasant. HR 40-47. Per Berry RN, patients HR has been 30-60 bpm. Patient up with Physical therapy shortly upon arrival, up with FWW. No c/o sob or dizziness. Oriented to room, environment, and plan of care.
--- NOTE | 2019-02-01 15:37 | CM.DANOTE ---
DCP/Assessment: Reviewed chart. Patient is a 73yr old male admitted [facility] with possible [facility]. No PCP indicated. Primary payor is 1)Medicaid. Received verbal referral from Dr. Castillo requesting assistance with d/c planning. Patient with significant medical background and appears to lack self awareness of the severity of his issues. HOURLY SHIFT MANAGER met with patient explained HOURLY SHIFT MANAGER role. Patient alert and oriented, resting in bed at time of visit. Patient reports that he currently resides in his [facility] near [facility] in [place]. Patient denies having PCP or pharmacy for medication refills? Patient reports that he just recently got on Medicaid. Patient's income is approximately $775.00 per month, some of that comes from [employer]. HOURLY SHIFT MANAGER had long discussion with patient about taking care of himself which will include getting a PCP, pharmacy, housing, and possibly ELMO for long-term. Patient appeared interested but unclear on how to go about getting any of it. HOURLY SHIFT MANAGER unclear if patient fully understands or if patient somewhat unmotivated. Patient does report that he is on waiting list for housing at [facility]. HOURLY SHIFT MANAGER encouraged patient to call and find out where he is at on list. Patient requesting HOURLY SHIFT MANAGER do it? Notified patient that CM team would follow up with patient on 02-02-19. HOURLY SHIFT MANAGER nearing end of shift and patient transferring to room # 209. P: Pending. Patient requiring assistance with basic discharge planning (see above for details). OWEN Coffey Discharge Planning/Care Management CM Discharge Assessment Start: 02/01/19 15:31 Freq: Status: Active Protocol: Document 02/01/19 15:31 KJS (Rec: 02/01/19 15:37 KJS [id number]) Discharge Planning Assessment Assigned Time Study Analyst OWEN Coffey Contact Information Amina Parker # [phone] Advance Directives? No Advance Directives on File No History Provided By Patient Medical Record Prior Living Arrangements Homeless Comment Patient reports that he currently resides in his [facility] in [place]. Type of transporation used prior to Drives own vehicle admit Independent with ADL's Therapy evaluations pending. Is patient alert and oriented? Yes Caregiver for Another No Barriers to Discharge Yes Comment Patient with complex medical history and unawareness of the seriousness of disease progression. Transportation Arrangement Lives in and drives automobile . Additional Comment Community Resource Guide. Patient will also need assistance with obtaining PCP, possible ELMO application, establishing pharmacy, and housing? Patient reports that he is on waiting list at [facility]# [phone]. Whiteboard Updated in Patient Room with No name and ext. # of Time Study Analyst Comment Patient in process of transerring from room# 106 to #209. Review Status In Process Next Review Type Continued Stay Review
--- NOTE | 2019-02-01 16:15 | OT.IP.EVAL ---
Current Diagnoses Hypertensive emergency (01/31/19) Past Medical History (Last Updated 02/01/19 @ 07:31 by Ludy Castillo DO) CVA (cerebral vascular accident) (Acute) Chronic kidney disease (Acute) Closed head injury (Acute) Diverticulitis of colon with perforation (Acute) Diverticulosis (Acute) Fistula of gallbladder (Acute) Hypertension (Acute) Paroxysmal atrial fibrillation (Acute) Traumatic brain injury (Acute) Surgical History (Last Updated 02/01/19 @ 07:31 by Ludy Castillo DO) H/O abdominal surgery (Acute) H/O exploratory laparotomy (Acute) H/O ileostomy (Acute) History of hemicolectomy (Acute) Hx of appendectomy (Acute) Hx of cholecystectomy (Acute) Hx of colonoscopy (Acute) Occupational Therapy Inpatient Evaluation/Re-Eval M1 PT/OT-IP Prior Functional Status Start: 02/01/19 15:24 Freq: NEEDED Status: Active Protocol: Document 02/01/19 15:24 [facility] (Rec: 02/01/19 16:15 [facility] [id number]) Medical Review Prior Functional Status Medical History Reviewed Yes Diet/Fluid Consistency Regular Thin Liquids Communication Independent Mobility and Gait Prior independent with no device. Activities of Daily Living and IADL's Pt independent with ADL's, showers at [facility] as currently homeless. Pt has meals at [employer], uses the bathroom at [facility], goes to the library to stay during the day, and sleeping in his car. Pt states does have a studio and storage but too filled up to live in now. Social History Living Arrangements Homeless Additional Social History Comment Pt states showers at [facility] that has grab bars but no seating and has to stand for showers. M2 OT-IP Current Condition Start: 02/01/19 15:24 Freq: Status: Active Protocol: Document 02/01/19 15:24 [facility] (Rec: 02/01/19 16:15 [facility] [id number]) Occupational Therapy Current Condition Current Condition Evaluation Date 02/01/19 Treatment Diagnosis CVA with left weakness Diagnosis Onset Date 01/31/19 Weight Bearing Status Weight Bearing Status Weight Bear as Tolerated M3 OT- IP Subjective and Pain Start: 02/01/19 15:24 Freq: Status: Active Protocol: Document 02/01/19 15:24 [facility] (Rec: 02/01/19 16:15 [facility] [id number]) OT- Subjective Occupational Therapy Visit Type Type Initial Evaluation Visit Start Time 10:35 Visit Stop Time 12:00 Total Visit Minutes 85 Occupational Therapy Visit Comments Patient Comments Pt wanting to shower. OT Pain Assessment Pain When Pain Assessed At Rest Pain Present Pain Present Denied Pain M4 OT- IP ADL's Start: 02/01/19 15:24 Freq: Status: Active Protocol: Document 02/01/19 15:24 [facility] (Rec: 02/01/19 16:15 [facility] [id number]) OT ECI-Tjma-Awlmoge General Evaluation Self-Feeding Ability Independent OT ADL-Dressing General Eval Lower Body Dressing Ability Moderate Assistance Areas Needing Assistance Underpants/Brief Socks Comments OT Dressing Comments Pt needing assist to sigrid brief over left foot, as having difficulty to keep his left leg crossed over due to decreased strength with LLE. Educated for pt to sigrid left leg first and easier to get right foot into the brief. Pt also heavily relying on holding to grab bar for balance while leaning forwards . Pt able to doff socks with difficulty to cross legs over and needing assist to sigrid socks at this time. OT ADL-Toileting General Evaluation Toileting Ability Maximum Assistance Devices Toileting Assistive Devices Commode Urinal Comments OT Toileting Comments Pt having to urinate while in the shower and able to use urinal, in addition pt needing to have a bowel movement, nurse assist with hygiene afterwards. OT ADL-Bathing Bathing Type Bathing Type Shower General Evaluation Bathing Ability Moderate Assistance Areas Needing Assistance Wash/Dry Back Wash/Dry Perineal Area Devices Bathing Equipment Shower Chair with Arms Grab Bars Comments OT Bathing Comments Pt needing to sit to shower for safety as unsteady on his feet and leans to the left at times. When standing to do pericare needs, pt needing WEST for balance and vc to straighten LLE, as tends to lean to the left. pt needing assist to wash/dry his back. M5 OT- IP IADL's Start: 02/01/19 15:24 Freq: Status: Active Protocol: Document 02/01/19 15:24 [facility] (Rec: 02/01/19 16:15 [facility] [id number]) OT-Instrumental Activities of Daily Living Medication Management Medication Management Comments Pt states at this time does not use any medications. Meal Preparation Meal Preparation Comments Has meals at [facility] [employer]. M6 OT- IP Functional Cognition Start: 02/01/19 15:24 Freq: Status: Active Protocol: Document 02/01/19 15:24 [facility] (Rec: 02/01/19 16:15 [facility] [id number]) Cognitive Factors Limiting Selfcare Function Cognitive Ability Level of Alertness Alert Patient Orientation Name Place Situation Attention Span Ability Capable of Focused Attention Capable of Sustained Attention Ability to Follow Commands Able to Follow One Step Commands Memory Description Short Term Impaired Siebel Developer Impaired Safety Awareness Underestimates Need for Assistance Problem Solving Ability Needs Assist to Identify Solutions Cognitive Comments Cognitive Assessment Comments Pt has trouble remembering details of medical history. Would be beneficial to do ACL and other cognitive assessment with pt. Pt able to follow commands for task of transfer and shower. Pt needing concrete simple commands. Pt scored 116 seconds on [place] making B which implies mild to moderate impairments for visual speed, scanning, speed of processing , mental functioning, and executive function, normal for pt's age range is 65 seconds. OT- Vision and Hearing OT- Hearing Assessment OT- Hearing Assessment WFL OT- Vision Assessment Visual Acuity Glasses For Reading Visual Attentiveness WFL Occular Pursuits WFL Visual [place] WFL Visual Spacial Neglect Left Vision Assessment Comments Pt noted to have left neglect while sitting in wc, left arm off of armrest and did not realize it was there, unaware to pickle maker LLE when wc that he was sitting was being moved, as he automatically raised his RLE up. While sitting on the BSC in the shower, LLE tends to abduct out compared to right leg. M7 OT- IP Mobility and Balance Start: 02/01/19 15:24 Freq: Status: Active Protocol: Document 02/01/19 15:24 [facility] (Rec: 02/01/19 16:15 [facility] [id number]) OT- Bed Mobility Assessment Sit to Supine Sit to Supine Assist Minimal Assistance OT-Transfer Assessment Sit to and From Stand Sit to and from Stand Moderate Assistance 1 Person Assistance Transfers Transfer Ability Moderate Assistance 1 Person Assistance Technique Transfer Destination Bed Bedside Commode Shower Stall Transfer Technique Stand Step Pivot Devices Transfer Assistive Devices Gait Belt Front Wheeled Walker Comments Mobility Comments Pt needing MODA x1 to stand due to LLE weakness and decreased balance. Pt tends to keep FWW too far forwards and needing assist for FWW management, balance, and vc for safety. While standing with grab bars in the shower also needing cues to tighten his LLE muscle while standing as tends to lean to the left, in addition VC to pay attention to LUE to assist to hold grab bar and use during the shower. OT- Balance Assessment Sitting Balance and Reactions Static Sitting Balance Ability Fair Dynamic Sitting Balance Ability Fair Standing Balance and Reactions Static Standing Balance Ability Poor Dynamic Standing Balance Ability Poor M8 OT- IP Objective Assessments Start: 02/01/19 15:24 Freq: Status: Active Protocol: Document 02/01/19 15:24 [facility] (Rec: 02/01/19 16:15 [facility] [id number]) OT Gross Range of Motion Upper Extremity Range of Motion Assessment Left Impaired ROM Impairments LUE 0-20 left shoulder flexion , WFL from elbow to distal for AROM RUE WFL PROM LUE WFL. OT Strength Comments Strength Comments LUE 3-/5 at shoulder, elbow 3+ /5 and hand 4-/5, RUE WFL. OT- Coordination Assessment Comments Coordination Comments Decreased coordination L>R. OT-Muscle Tone Assessment Muscle Tone WNL Yes OT Sensation Assessment Comments Summary Comments Intact for sensation, proprioception and kinesthesia but slight delay for left wrist and hand. Edema Edema Comments Min swelling left hand. M9 OT- IP Assessment and Plan Start: 02/01/19 15:24 Freq: Status: Active Protocol: Document 02/01/19 15:24 [facility] (Rec: 02/01/19 16:15 [facility] [id number]) OT Summary Assessment and Plan Potential Rehabilitation Potential Good Analytic Complexity at Evaluation Moderate Summary OT Impairments Strength Balance Coordination Functional Cognition Functional Mobility Grooming Dressing Toileting Bathing Toilet Transfers Shower Transfers Progress Towards Goals Slow Progress due to Medical Issues Slow Progress due to Activity Tolerance Assessment Summary Pt MOD complexity and main barriers are decreased strength with LUE and LLE, decreased balance, now needing use of FWW, and assist for mobility needs. At this time pt is a high fall risk. Prior pt was completely independent and did not use a device, and able to drive. Pt would benefit from skilled rehab versus acute rehab at this time and not safe to go back to living in his car at this time. Goals Self-Feeding Goal Independent Grooming Goal Independent Dressing Goal Independent Toileting Goal Independent Bathing Goal Independent Toilet Transfer Goal Independent Shower Transfer Goal Independent OT-Other Goals Goals for grooming and showering in standing. Days to Meet Goals 15 Frequency of Treatment Frequency Of Treatment Once a Day Treatment Plan OT Treatment Plan ADL Training Functional Cognition Training Functional Mobility Patient/Family Education Discharge Planning Other Treatment Recommendations and Next Stand at sink for grooming Treatment Focus needs. ACL. Discharge Recommendations OT Discharge Recommendations SNF Rehab Acute Rehab Home Equipment Needs Shower chair, FWW
[2019-02-01] MEDS: ATORVASTATIN 20 MG TABLET 40 MG PO (20:58)
[2019-02-02] VITALS (9 sets, daily range): BP systolic 111–165; BP diastolic 68–95; PULSE 42–52; RESP 15–19; TEMP 36.6–37; O2SAT 95–99
--- NOTE | 2019-02-02 01:22 | PC.NURSE ---
2300- Pt tranferred up from ICU this pm; originally admit for CVA w/ uncont hypertension. Q4hr neuro checks & NIH scales taking place; pt has L sided weakness however he states this is improving. Hx of afib; reading SB on telemetry w/ HR in the high 30's to mid 40's (MD aware). L forearm IV saline locked; RA w/ stable sats; hx of loose stools pt admits he had one this evening. 0030- NIH completed and score of 4; pt A+O able to answer all questions appropriately.
[2019-02-02 06:01] LABS: Add Manual Diff / Slide Review NO; Basophils Absolute Auto 100 /uL (0-100); Basophils Percent Auto 1.1 % (0-2); Eosinophils Absolute Auto 200 /uL (0-450); Eosinophils Percent Auto 3.5 % (2-4); Hematocrit 41.9 % (41-53); Hemoglobin 14.6 g/dL (13.5-17.5); Lymphocytes Absolute Auto 1200 /uL (1100-4500); Lymphocytes Percent Auto 17.4 % (25-40); Mean Corpuscular HGB Conc 34.7 % (30-36); Mean Corpuscular Hemoglobin 30.9 PG (26-34); Monocytes Absolute Auto 500 /uL (0-900); Monocytes Percent Auto 6.7 % (3-14); Neutrophils Absolute Auto 4900 /uL (1500-7000); Neutrophils Percent Auto 71.3 % (50-75); Platelet Count 140 X10^3/uL (150-400); Red Blood Cell Count 4.71 X10^6/uL (4.5-5.9); Red Cell Distribution Width 13.5 % (11.6-14.8); White Blood Cell Count 6.9 X10^3/uL (4.5-11.0)
[2019-02-02 06:11] LABS: BUN Creatinine Ratio 18.6 (6-22); Blood Urea Nitrogen 26 mg/dL (9-20); Calcium 9.5 mg/dL (8.4-10.2); Carbon Dioxide 26 mmol/L (22-32); Chloride 103 mmol/L (98-107); Estimated Glomerular Filt Rate 49.5 mL/min (>60); Glucose 106 mg/dL (80-110); HEMOLYSIS < 15 (0-50); Magnesium 2.1 mg/dL (1.6-2.3); Potassium 3.5 mmol/L (3.4-5.1); Sodium 137 mmol/L (137-145)
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
--- NOTE | 2019-02-02 10:13 | PC.NURSE ---
Eugene has stable neuro assessment hospital day two. VSS. He feels like his left leg is still weak, but that he is progressing with PT. He is most concerned about talking to SW. I need to get an apt. at [facility]. I've been on the waiting list for months now.
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
[2019-02-02] MEDS: hydroCHLOROthiazide 25 MG TABLET 50 MG PO (11:41)
[2019-02-02] MEDS: AMLODIPINE 5 MG TABLET 10 MG PO (11:41)
[2019-02-02] MEDS: LOSARTAN 50 MG TABLET PO ×2 (11:42→21:24)
[2019-02-02] MEDS: HEPARIN 5,000 UNIT/ML VIAL 5000 UNIT SUBCUT ×2 (11:42→21:24)
[2019-02-02] MEDS: ASPIRIN EC 81 MG TABLET PO (11:42)
--- NOTE | 2019-02-02 13:06 | PT.IPTN ---
Current Diagnoses Hypertensive emergency (01/31/19) Physical Therapy Treatment Note M2 PT-IP Current Condition Start: 02/01/19 13:53 Freq: NEEDED Status: Active Protocol: Document 02/01/19 15:20 AB (Rec: 02/01/19 17:28 AB [id number]) Physical Therapy Current Condition Current Condition Evaluation Date 02/01/19 Treatment Diagnosis CVA; difficulty in walking Onset Date 01/31/19 Precautions Other Precautions Falls M3 PT-IP Subjective Start: 02/01/19 13:53 Freq: NEEDED Status: Active Protocol: Document 02/02/19 08:57 BS (Rec: 02/02/19 09:02 BS [email or web address]) Subjective Physical Therapy Visit Type Type Treatment Note Visit Start Time 08:42 Visit Stop Time 08:57 Total Visit Minutes 15 Notes Pt sitting up in bedside chair and agreeable to PT. No pain complaints and denies dizziness or lightheadness with activity. Therapy Pain Assessment Pain When Pain Assessed At Rest Pain Present Pain Present Denied Pain M4 PT-IP Mobility and Gait Start: 02/01/19 13:53 Freq: NEEDED Status: Active Protocol: Document 02/01/19 15:20 AB (Rec: 02/01/19 17:28 AB [id number]) PT-Bed Mobility Assessment Supine to Sit Supine to Sit Contact Guard Assistance Sit to Supine Sit to Supine Contact Guard Assistance PT-Transfer Assessment Sit to and From Stand Sit to and from Stand Moderate Assistance 1 Person Assistance Use of Upper Extremities Equipment Transfer Assistive Device Gait Belt Front Wheeled Walker Orthotic/Prosthetic Devices or Brace: No Transfers Transfer Destination Toilet Transfer Technique pt ambulated to the toilet using FWW Transfer Ability Level of Assist Moderate Assistance Maximum Assistance Comments Mobility Comments pt requested to use the toilet . pt can be impulsive. completed supine to sit CGA. LOB posteriorly requiring min A for stability sitting on EOB . pt completed sit to stand mod A and cues. pt ambulated using FWW to the toilet ~ 12 ft requiring mod to max A and max cues. pt with ataxic gait and tends to drag LLE to advance. pt ambulated back to the bed using FWW mod to max A and max cues for weight shifting and increase LLE elevation. pt required min A to maintain sitting balance on EOB. completed sit to stand mod A and cues. was able to maintain standing using FWW for support mod A while NAC assist pt with brief change. pt assisted back to bed and required CGA and cues. positioned pt in bed. call light and table placed within reach. Gait Assessment Gait Gait Assistance Required: Moderate Assistance Maximum Assistance Distance (Feet) 12 Able to Maintain Weight Bearing Status Yes During Gait Assistive Devices Assistive Device Gait Belt Front Wheeled Walker Orthotic/Prosthetic Devices or Brace: No Gait Deviations General Gait Pattern Ataxic Decreased Stride Length Decreased Feet Clearance Step-to Gait Factors Limiting Gait Function Factors Limiting Gait Function Decreased Activity Tolerance Decreased Sensation Decreased Strength Difficulty Following Directions Incoordination Poor Balance Poor Safety Awareness PT-Balance Assessment Sitting Balance and Reactions Static Sitting Balance Ability Fair Dynamic Sitting Balance Ability Poor Standing Balance and Reactions Static Standing Balance Ability Poor Dynamic Standing Balance Ability Poor Device Used FWW M5 PT-IP Objective Assessments Start: 02/01/19 13:53 Freq: NEEDED Status: Active Protocol: Document 02/01/19 15:20 AB (Rec: 02/01/19 17:28 AB [id number]) Orientation Orientation/Cognition Level of Alertness Alert Orientation Name Place Situation Gross Range of Motion Lower Extremity ROM Assessment Within Functional Limits Strength Lower Extremity Strength Assessment Within Functional Limits Muscle Tone Muscle Tone WNL Yes Other Assessments Other Other Assessments pt presents with incoordination and decrease motor planning during mobility and can be impulsive. M6 PT-IP Treatment Start: 02/01/19 13:53 Freq: NEEDED Status: Active Protocol: Document 02/02/19 08:57 BS (Rec: 02/02/19 09:02 BS [email or web address]) Physical Therapy Treatment Education Education Provided Safety Other Treatments Other Treatment Performed Pt ambulated x75' with gait belt, use of FWW, Min to Mod A to steady especially during change in direction. Mod VCs for increased L hip flexion and ankle DF with VCs to reduce gait speed. Pt flakito's foot drop on LLE and tends to walk fast, he is able to clear LLE with slower gait speed and no external distractions. Rashida decreased safety awareness and needed VCs to keep FWW close and directly in front of him especially with directional changes. Pt performed all bed mobility with SBA for safety. Pt performed sit to stand with FWW, gait belt, and Min to Mod A to attain standing position . M7 PT-IP Assessment and Plan Start: 02/01/19 13:53 Freq: NEEDED Status: Active Protocol: Document 02/02/19 08:57 BS (Rec: 02/02/19 09:02 BS [email or web address]) PT Summary Assessment and Plan Summary Assessment Summary Pt continues to demonstrate poor safety awareness and required Mod-Max VCs during session to keep FWW directly in front and close to his body during ambulation, especially with change in direction. He was educated in ankle pumps and seated marches when seated up in chair. Pt demo's L foot drop with gait, but was able to tolerate ambulating 75' without significant fatigue. Goals Transfer Goal Moderate Assistance
--- NOTE | 2019-02-02 14:36 | PT.IPTN ---
Current Diagnoses Hypertensive emergency (01/31/19) Physical Therapy Treatment Note M2 PT-IP Current Condition Start: 02/01/19 13:53 Freq: NEEDED Status: Active Protocol: Document 02/01/19 15:20 AB (Rec: 02/01/19 17:28 AB [id number]) Physical Therapy Current Condition Current Condition Evaluation Date 02/01/19 Treatment Diagnosis CVA; difficulty in walking Onset Date 01/31/19 Precautions Other Precautions Falls M3 PT-IP Subjective Start: 02/01/19 13:53 Freq: NEEDED Status: Active Protocol: Document 02/02/19 14:36 AB (Rec: 02/02/19 17:00 AB [id number]) Subjective Physical Therapy Visit Type Type Treatment Note Visit Start Time 14:36 Visit Stop Time 15:10 Total Visit Minutes 34 Number of SENIOR STRUCTURAL ENGINEER Visits 0 Physical Therapy Visit Comments Patient Comments pt agreed to do PT M4 PT-IP Mobility and Gait Start: 02/01/19 13:53 Freq: NEEDED Status: Active Protocol: Document 02/02/19 14:36 AB (Rec: 02/02/19 17:00 AB [id number]) PT-Bed Mobility Assessment Supine to Sit Supine to Sit Standby Assistance Sit to Supine Sit to Supine Standby Assistance PT-Transfer Assessment Sit to and From Stand Sit to and from Stand Moderate Assistance Maximum Assistance 1 Person Assistance Use of Upper Extremities Equipment Transfer Assistive Device Gait Belt Front Wheeled Walker Orthotic/Prosthetic Devices or Brace: No Comments Mobility Comments pt completed supine to sit SBA and max cues. pt required increase time to complete task . sitting Balance activities conducted: pt sitting on EOB, educated on awareness of COG and trunk control. pt was able to sit on EOB initially with CGA to min A for balance due to to posterior LOB but able to sit SBA to CGA afterwards with cues to correct body alignment. pt completed static sitting balance ~ 2 min SBA to CGA. pt then completed sitting balance with perturbations and then reaching in different directions while maintaining sitting balance. pt completed sit to stand mod to max A and max cues for techniques and safety. pt was able to stand using FWW for support min to mod A and cues. pt with increase L knee flexion during standing and forwards trunk leaning requiring verbal and tactile cues to correct. pt completed sit <> stand x 2 reps requiring mod to max A and cues. Gait Assessment Gait Gait Assistance Required: Moderate Assistance Maximum Assistance 1 Person Assist Distance (Feet) 25 Able to Maintain Weight Bearing Status Yes During Gait Assistive Devices Assistive Device Gait Belt Front Wheeled Walker Orthotic/Prosthetic Devices or Brace: No Gait Deviations General Gait Pattern Antalgic Ataxic Decreased Stride Length Decreased Feet Clearance Lateral Trunk Lean Factors Limiting Gait Function Factors Limiting Gait Function Decreased Activity Tolerance Difficulty Following Directions Incoordination Poor Balance Poor Safety Awareness Comments Gait Comments pt ambulated in room using FWW ~ 25 ft mod to max A and cues with focus on weight shifting and LLE elevation. pt continues to drag LLE during ambulation and with with decrease self awareness when doing so and requires max cues to correct. pt educated on trunk control during standing and weight shifting to improve LLE elevation during ambulation. completed marching in place using FWW mod A with emphasis on weight shifting and increasing LE elevation. M5 PT-IP Objective Assessments Start: 02/01/19 13:53 Freq: NEEDED Status: Active Protocol: Document 02/01/19 15:20 AB (Rec: 02/01/19 17:28 AB [id number]) Orientation Orientation/Cognition Level of Alertness Alert Orientation Name Place Situation Gross Range of Motion Lower Extremity ROM Assessment Within Functional Limits Strength Lower Extremity Strength Assessment Within Functional Limits Muscle Tone Muscle Tone WNL Yes Other Assessments Other Other Assessments pt presents with incoordination and decrease motor planning during mobility and can be impulsive. M6 PT-IP Treatment Start: 02/01/19 13:53 Freq: NEEDED Status: Active Protocol: Document 02/02/19 14:36 AB (Rec: 02/02/19 17:00 AB [id number]) Physical Therapy Treatment Education Education Provided Safety M7 PT-IP Assessment and Plan Start: 02/01/19 13:53 Freq: NEEDED Status: Active Protocol: Document 02/02/19 14:36 AB (Rec: 02/02/19 17:00 AB [id number]) PT Summary Assessment and Plan Potential Rehabilitation Potential Fair Summary Impairments ROM Strength Balance Coordination Sensation Tone Cognition Bed Mobility Transfers Gait Activity Tolerance Progress Towards Goals Slow Progress due to Medical Issues Assessment Summary pt continues to require mod to max A with ambulation using FWW. has decrease insight of current mobility level affecting safety awareness. pt will require acute rehab to improve mobility and functional independence. Goals Bed Mobility Goal Independent Transfer Goal Standby Assistance Front Wheeled Walker Gait Goal Standby Assistance Front Wheel Walker Gait Distance 200 Other Goals up/down 5 steps 1 rail CGA Days to Meet Goals 10 Frequency of Treatment Frequency Of Treatment Twice a Day Treatment Plan Physical Therapy Treatment Plan Bed Mobility Training Transfer Training Gait Training Therapeutic Exercise Balance Retraining Discharge Planning Hot or Cold Pack Neuromuscular Re-ed Coordination Retraining Manual Therapy Other Recommendations and Next Treatment sitting/standing balance, Focus ambulation Recommendations To Nursing Amount of Assist Needed 2 Person Assist Discharge Recommendations PT Discharge Recommendations SNF Rehab Acute Rehab
--- NOTE | 2019-02-02 14:37 | CM.DPNOTE ---
Spoke w/Dr Galloway this morning, pt will likely be medically stable for DC tomorrow, if SNF vs Acute Inpt Rehab is secured (per therapy's recommendation). Pt has been cleared and DC by HOSPICE ART THERAPIST team. Reviewed chart. Pt has Medicaid and Medicare Part B only per [facility]. It is unlikely that an acute inpt rehab facility will consider pt for admission w/Medicaid and no stable DC plan at this time. This LIFE SCIENTIST will review referral w/[facility] . Met w/pt this afternoon to review his efforts towards stable housing and discuss community resources, according to our conversation: Pt reiterates to this LIFE SCIENTIST that he hopes to get into [facility] soon, he asks this LIFE SCIENTIST to call the trust manager assistant at [facility] and review the complexity of pt's medical needs and the benefit of stable housing for pt. Pt stayed at [facility] for a total of one month until it closed for the season. Pt currently lives in his [facility]. When asked about [facility], pt states there are guards and it seems unsafe. Pt does not want to put his name on the list at [facility], HUD housing in [place], and will not look look for rentals or HUD housing in [facility] because he has all of his belongings in [place]. He does not want to seek a room for rent, stating he would rather live in his truck than live with someone at this time. Out of the $775 pt receives in income, he spends approx $200 for his storage units. As previously documented, pt uses public restrooms, showers at [facility], and gets vouchers from the [employer] for laundry. He visits multiple sites in [place] where he gets canned or non-perishable items and eats at local churches weekly during their community dinners. Pt receives approx $83 in food stamps monthly. Discussed prison care through [facility], this LIFE SCIENTIST uncertain where or how cgs would provide care. Pt thinks he has been managing well. This LIFE SCIENTIST reviewed recommendations from therapy team and reiterated to pt that he requires skilled therapies to regain function after his stroke. Pt mentions he has been in bed for days and this makes him dizzy when he gets up. Pt lacks insight into the severity of his deficits after his stroke. Discussed getting a PCP; pt agreeable and says he will need to see someone. Pt w/ h/o extensive abd surgeries and required weekly wound care visits which he says he always attended. Friend on file, Amina, is a frequent visitor at the [facility], pt and she see each other there occasionally. This LIFE SCIENTIST will attempt to coordinate the safest DCP available to pt. Following closely. OWEN Duncan
--- NOTE | 2019-02-02 16:35 | OT.IP.TRT ---
Current Diagnoses Hypertensive emergency (01/31/19) Occupational Therapy Treatment Note M2 OT-IP Current Condition Start: 02/01/19 15:24 Freq: Status: Active Protocol: Document 02/01/19 15:24 CCC (Rec: 02/01/19 16:15 CCC [id number]) Occupational Therapy Current Condition Current Condition Evaluation Date 02/01/19 Treatment Diagnosis CVA with left weakness Diagnosis Onset Date 01/31/19 Weight Bearing Status Weight Bearing Status Weight Bear as Tolerated M3 OT- IP Subjective and Pain Start: 02/01/19 15:24 Freq: Status: Active Protocol: Document 02/02/19 16:35 PJM (Rec: 02/03/19 09:06 PJM [id number]) OT- Subjective Occupational Therapy Visit Type Type Treatment Note Visit Start Time 16:02 Visit Stop Time 16:35 Total Visit Minutes 33 Occupational Therapy Visit Comments Patient/Caregiver Goals to find housing OT Pain Assessment Pain When Pain Assessed After Treatment Pain Present Pain Present Denied Pain M4 OT- IP ADL's Start: 02/01/19 15:24 Freq: Status: Active Protocol: Document 02/02/19 16:35 PJM (Rec: 02/03/19 09:06 PJM [id number]) OT ADL-Toileting General Evaluation Toileting Ability Minimal Assistance Areas Needing Assistance Perform Perineal Hygiene Devices Toileting Assistive Devices Urinal Comments OT Toileting Comments Pt had frequent urgent need to use urinal during this AM's tx and again this PM. Some minimal spillage noted when using the urinal seated in chair with min assist to clean up urine on floor. M6 OT- IP Functional Cognition Start: 02/01/19 15:24 Freq: Status: Active Protocol: Document 02/02/19 16:35 PJM (Rec: 02/03/19 09:06 PJM [id number]) Cognitive Factors Limiting Selfcare Function Cognitive Ability Level of Alertness Alert Cognitive Comments Cognitive Assessment Comments Pt continues to minimize or make excuses to explain his functional deficits. M7 OT- IP Mobility and Balance Start: 02/01/19 15:24 Freq: Status: Active Protocol: Document 02/02/19 16:35 PJM (Rec: 02/03/19 09:06 PJM [id number]) OT- Bed Mobility Assessment Rolling Type of Rolling Roll to Right Level of Assistance Standby Assistance Supine to Sit Supine to Sit Assist Contact Guard Assistance Scooting Scooting to Edge of Bed Standby Assistance OT-Transfer Assessment Sit to and From Stand Sit to and from Stand Minimal Assistance Transfers Transfer Ability Minimal Assistance Technique Transfer Destination Chair Transfer Technique Stand Step Pivot Devices Transfer Assistive Devices Gait Belt Front Wheeled Walker Comments Mobility Comments Pt needing mod+ verbal cues to use effective bed mobility sequence despite prior education by both P.T. and OT today with poor problem solving and motor planning noted. Pt's LLE less stable during transfer this PM. Pt needing more assist with sit to stand with mod verbal cues for hand placement. OT- Balance Assessment Sitting Balance and Reactions Static Sitting Balance Ability Fair Dynamic Sitting Balance Ability Poor Comments Other Balance Tests/Deviations/Treatment Poor self monitoring and : difficulty finding midline when moving from sidelying to sitting with loss of balance to right and backwards when sitting EOB. Pt does not initiate getting feet on floor . M8 OT- IP Objective Assessments Start: 02/01/19 15:24 Freq: Status: Active Protocol: Document 02/02/19 16:35 PJM (Rec: 02/03/19 09:06 PJM [id number]) OT Strength Comments Strength Comments B gross grasp, lateral pinch, palmar pinch and tip pinch strength all WNL when tested with dynamometer and pinch gauge with results below: R Gross Grasp 80 lbs (Norm 50-102) L Gross Grasp 56 lbs (Norm 44-95) R Lateral Pinch 23 (Norm 13-22) L Lateral Pinch 20 (Norm 11.5-20.5) R Palmar Pinch 18 (Norm 10-19) L Palmar Pinch 15 (Norm 9-20.5) R Tip Pinch 18 (Norm 9-20) L Tip Pinch 15 (Norm 8.5-20) OT- Coordination Assessment Upper Extremity Finger to Nose Test Left UE Impaired Finger Tapping Test Left UE Impaired 9-Hole Peg Hand Test Hand Right Scoring Time 28 Interpretation Within Normal Range Norm For Patients Age/Sex 17-30 sec Left Scoring Time 52 Interpretation Impaired Norm For Patients Age/Sex 16-33 OT-Muscle Tone Assessment Muscle Tone Location Left Upper Extremity Type of Tone Hypertonicity Severity of Tone Mild Keny Grade Scale Grade 1 Comments Muscle Tone Comments proximal dysmetria interferes with distal stability for fine prehension tasks M9 OT- IP Assessment and Plan Start: 02/01/19 15:24 Freq: Status: Active Protocol: Document 02/02/19 16:35 PJM (Rec: 02/03/19 09:06 PJM [id number]) OT Summary Assessment and Plan Potential Rehabilitation Potential Good Summary Assessment Summary Pt has normal B practice consultant and pinch strength but significantly impaired gross and fine coordination in LUE/hand as described above. Pt continues to require mod to max verbal cues for mobility techniques and CGA to min assist for bed mobility and transfers with decreased problem solving and motor planning noted. Poor sitting balance on edge of bed persists even after education re: compensatory strategies. Pt requires repetition of information. Pt has poor insight into current deficits and how these might affect his safety. Goals Self-Feeding Goal Independent Grooming Goal Independent Dressing Goal Independent Toileting Goal Independent Bathing Goal Independent Toilet Transfer Goal Independent Shower Transfer Goal Independent OT-Other Goals Goals for grooming and showering in standing. Days to Meet Goals 15 Frequency of Treatment Frequency Of Treatment Twice a Day Treatment Plan OT Treatment Plan ADL Training Functional Cognition Training Functional Mobility Neuromuscular Re-education Therapeutic Exercises Patient/Family Education Discharge Planning Discharge Recommendations OT Discharge Recommendations Acute Rehab Other Discharge Recommendations vs SNF Home Equipment Needs Shower chair, FWW
[2019-02-02] MEDS: ATORVASTATIN 20 MG TABLET 40 MG PO (21:22)
[2019-02-02] MEDS: SODIUM CHLORIDE 0.9% FLUSH 10 ML IV (21:23)
[2019-02-03] VITALS (7 sets, daily range): BP systolic 125–163; BP diastolic 68–90; PULSE 43–69; RESP 16–18; TEMP 36.3–37.3; O2SAT 96–98
--- NOTE | 2019-02-03 00:23 | PC.NURSE ---
2300- Pt admit for CVA & HTN; q4hr neuro & NIH checks taking place. Pt on telemetry w/ significant bradycardia noted (as low as 35) MD aware; completely asymptomatic w/ low HR. Saline locked at this time; moving 1PA w/ FWW L sided weakness noted. VSS w/ BA on and activated. 0000- NIH score of 4; pt completely A+O w/ no changes to neuro status at this time.
[2019-02-03] MEDS: HEPARIN 5,000 UNIT/ML VIAL 5000 UNIT SUBCUT ×2 (09:00→20:31)
[2019-02-03] MEDS: SODIUM CHLORIDE 0.9% FLUSH 10 ML IV ×2 (09:01→20:33)
[2019-02-03] MEDS: ASPIRIN EC 81 MG TABLET PO (09:01)
[2019-02-03] MEDS: hydroCHLOROthiazide 25 MG TABLET 50 MG PO (09:01)
[2019-02-03] MEDS: AMLODIPINE 5 MG TABLET 10 MG PO (09:01)
[2019-02-03] MEDS: LOSARTAN 50 MG TABLET PO ×2 (09:01→20:31)
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
--- NOTE | 2019-02-03 11:30 | PT.IPTN ---
Current Diagnoses Hypertensive emergency (01/31/19) Physical Therapy Treatment Note M2 PT-IP Current Condition Start: 02/01/19 13:53 Freq: NEEDED Status: Active Protocol: Document 02/01/19 15:20 AB (Rec: 02/01/19 17:28 AB [id number]) Physical Therapy Current Condition Current Condition Evaluation Date 02/01/19 Treatment Diagnosis CVA; difficulty in walking Onset Date 01/31/19 Precautions Other Precautions Falls M3 PT-IP Subjective Start: 02/01/19 13:53 Freq: NEEDED Status: Active Protocol: Document 02/03/19 11:45 GGD (Rec: 02/03/19 12:27 GGD [id number]) Subjective Physical Therapy Visit Type Type Treatment Note Visit Start Time 11:00 Visit Stop Time 11:30 Total Visit Minutes 30 Number of INVESTOR RELATIONS MANAGER Visits 1 Physical Therapy Visit Comments Patient Comments Pt willing to work with therapy. M4 PT-IP Mobility and Gait Start: 02/01/19 13:53 Freq: NEEDED Status: Active Protocol: Document 02/03/19 11:45 GGD (Rec: 02/03/19 12:27 GGD [id number]) PT-Bed Mobility Assessment Supine to Sit Supine to Sit Standby Assistance PT-Transfer Assessment Sit to and From Stand Sit to and from Stand Minimal Assistance 1 Person Assistance 2 Person Assistance Equipment Transfer Assistive Device Gait Belt Front Wheeled Walker Orthotic/Prosthetic Devices or Brace: No Transfers Transfer Destination Chair Toilet Transfer Ability Level of Assist Moderate Assistance 1 Person Assistance Gait Assessment Gait Gait Assistance Required: Minimum Assistance Moderate Assistance 1 Person Assist Distance (Feet) 75 Able to Maintain Weight Bearing Status Yes During Gait Assistive Devices Assistive Device Gait Belt Front Wheeled Walker Orthotic/Prosthetic Devices or Brace: No Gait Deviations General Gait Pattern Antalgic Ataxic Decreased Stride Length Decreased Feet Clearance Lateral Trunk Lean Factors Limiting Gait Function Factors Limiting Gait Function Decreased Activity Tolerance Difficulty Following Directions Incoordination Poor Balance Poor Safety Awareness Comments Gait Comments Pt needed cues for left LE adavancement and foot clearance. M5 PT-IP Objective Assessments Start: 02/01/19 13:53 Freq: NEEDED Status: Active Protocol: Document 02/01/19 15:20 AB (Rec: 02/01/19 17:28 AB [id number]) Orientation Orientation/Cognition Level of Alertness Alert Orientation Name Place Situation Gross Range of Motion Lower Extremity ROM Assessment Within Functional Limits Strength Lower Extremity Strength Assessment Within Functional Limits Muscle Tone Muscle Tone WNL Yes Other Assessments Other Other Assessments pt presents with incoordination and decrease motor planning during mobility and can be impulsive. M6 PT-IP Treatment Start: 02/01/19 13:53 Freq: NEEDED Status: Active Protocol: Document 02/03/19 11:45 GGD (Rec: 02/03/19 12:27 GGD [id number]) Physical Therapy Treatment Education Education Provided Safety M7 PT-IP Assessment and Plan Start: 02/01/19 13:53 Freq: NEEDED Status: Active Protocol: Document 02/03/19 11:45 GGD (Rec: 02/03/19 12:27 GGD [id number]) PT Summary Assessment and Plan Summary Assessment Summary Pt needed assist for balance with mobility. He had mild LOB of balance with gait. He leaned against the wall for standing to use the toilet. He has poor standing balance and is fall risk. Pt will need SNF rehab to improve mobility , balance and safety. Frequency of Treatment Frequency Of Treatment Twice a Day Recommendations To Nursing Amount of Assist Needed 1 Person Assist Discharge Recommendations PT Discharge Recommendations SNF Rehab Acute Rehab
--- NOTE | 2019-02-03 14:15 | PT.IPTN ---
Current Diagnoses Hypertensive emergency (01/31/19) Physical Therapy Treatment Note M2 PT-IP Current Condition Start: 02/01/19 13:53 Freq: NEEDED Status: Active Protocol: Document 02/01/19 15:20 AB (Rec: 02/01/19 17:28 AB [id number]) Physical Therapy Current Condition Current Condition Evaluation Date 02/01/19 Treatment Diagnosis CVA; difficulty in walking Onset Date 01/31/19 Precautions Other Precautions Falls M3 PT-IP Subjective Start: 02/01/19 13:53 Freq: NEEDED Status: Active Protocol: Document 02/03/19 14:15 GGD (Rec: 02/03/19 14:48 GGD [email or web address]) Subjective Physical Therapy Visit Type Type Treatment Note Visit Start Time 13:45 Visit Stop Time 14:15 Total Visit Minutes 30 Number of 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 M4 PT-IP Mobility and Gait Start: 02/01/19 13:53 Freq: NEEDED Status: Active Protocol: Document 02/03/19 14:15 GGD (Rec: 02/03/19 14:48 GGD [email or web address]) PT-Bed Mobility Assessment Sit to Supine Sit to Supine Standby Assistance Scooting Scooting to Edge of Bed Standby Assistance PT-Transfer Assessment Sit to and From Stand Sit to and from Stand Contact Guard Assistance 1 Person Assistance Use of Upper Extremities Equipment Transfer Assistive Device Gait Belt Front Wheeled Walker Orthotic/Prosthetic Devices or Brace: No Transfers Transfer Destination Bed Transfer Ability Level of Assist Minimal Assistance 1 Person Assistance Use of Upper Extremities Gait Assessment Gait Gait Assistance Required: Minimum Assistance 1 Person Assist Distance (Feet) 220 Able to Maintain Weight Bearing Status Yes During Gait Assistive Devices Assistive Device Gait Belt Front Wheeled Walker Orthotic/Prosthetic Devices or Brace: No Gait Deviations General Gait Pattern Antalgic Ataxic Decreased Stride Length Decreased Feet Clearance Lateral Trunk Lean Factors Limiting Gait Function Factors Limiting Gait Function Decreased Activity Tolerance Difficulty Following Directions Incoordination Poor Balance Poor Safety Awareness Comments Gait Comments Pt needed mod cues for left LE adavancement and foot clearance. He had mild unsteadiness and LOB. M5 PT-IP Objective Assessments Start: 02/01/19 13:53 Freq: NEEDED Status: Active Protocol: Document 02/01/19 15:20 AB (Rec: 02/01/19 17:28 AB [id number]) Orientation Orientation/Cognition Level of Alertness Alert Orientation Name Place Situation Gross Range of Motion Lower Extremity ROM Assessment Within Functional Limits Strength Lower Extremity Strength Assessment Within Functional Limits Muscle Tone Muscle Tone WNL Yes Other Assessments Other Other Assessments pt presents with incoordination and decrease motor planning during mobility and can be impulsive. M6 PT-IP Treatment Start: 02/01/19 13:53 Freq: NEEDED Status: Active Protocol: Document 02/03/19 14:15 GGD (Rec: 02/03/19 14:48 GGD [email or web address]) Physical Therapy Treatment Education Education Provided Safety Other Treatments Other Treatment Performed Standing balance with WBOS EO/ EC, head turns, weight shifts forward and backwards. Seated balance with leg lifts and reaching with UE. M7 PT-IP Assessment and Plan Start: 02/01/19 13:53 Freq: NEEDED Status: Active Protocol: Document 02/03/19 14:15 GGD (Rec: 02/03/19 14:48 GGD [email or web address]) PT Summary Assessment and Plan Summary Assessment Summary Pt improving slowly with mobility. He does have LOB and unsteadiness with gait. He did need min to mod A with LOB during standing balance exercise. Pt not safe for I mobility and would benefit from SNF rehab. Frequency of Treatment Frequency Of Treatment Twice a Day Treatment Plan Physical Therapy Treatment Plan Bed Mobility Training Transfer Training Gait Training Therapeutic Exercise Balance Retraining Discharge Planning Hot or Cold Pack Neuromuscular Re-ed Coordination Retraining Manual Therapy Other Recommendations and Next Treatment sitting/standing balance, Focus ambulation Recommendations To Nursing Amount of Assist Needed 1 Person Assist Discharge Recommendations PT Discharge Recommendations SNF Rehab Acute Rehab
--- NOTE | 2019-02-03 15:54 | OT.IP.TRT ---
Current Diagnoses Hypertensive emergency (01/31/19) Occupational Therapy Treatment Note M2 OT-IP Current Condition Start: 02/01/19 15:24 Freq: Status: Active Protocol: Document 02/01/19 15:24 CCC (Rec: 02/01/19 16:15 CCC [email or web address]) Occupational Therapy Current Condition Current Condition Evaluation Date 02/01/19 Treatment Diagnosis CVA with left weakness Diagnosis Onset Date 01/31/19 Weight Bearing Status Weight Bearing Status Weight Bear as Tolerated M3 OT- IP Subjective and Pain Start: 02/01/19 15:24 Freq: Status: Active Protocol: Document 02/03/19 15:54 PJM (Rec: 02/03/19 18:07 PJM [email or web address]) OT- Subjective Occupational Therapy Visit Type Type Treatment Note Visit Start Time 15:00 Visit Stop Time 15:54 Total Visit Minutes 54 Notes pt declined shower on first 2 attempts due to abdominal discomfort after eating Occupational Therapy Visit Comments Patient Comments Let's do it. Patient/Caregiver Goals to find a place to live OT Pain Assessment Pain When Pain Assessed After Treatment Pain Present Pain Present Denied Pain M4 OT- IP ADL's Start: 02/01/19 15:24 Freq: Status: Active Protocol: Document 02/03/19 15:54 PJM (Rec: 02/03/19 18:07 PJM [email or web address]) OT ADL-Dressing General Eval Upper Body Dressing Ability Minimal Assistance Lower Body Dressing Ability Minimal Assistance Areas Needing Assistance Underpants/Brief Socks Comments OT Dressing Comments Pt min assist to don gown and min assist to don brief and socks due to tight fit. Pt SBA to doff socks and brief seated on shower seat. Pt needs min cues for technique/ safety. OT ADL-Toileting Comments OT Toileting Comments no urinary urgency this session OT ADL-Bathing Bathing Type Bathing Type Shower General Evaluation Bathing Ability Minimal Assistance Areas Needing Assistance Retrieving/Setting Up Items Wash/Dry Lower Extremities Devices Bathing Equipment Hand Held Shower Sprayer Shower Chair without Arms Grab Bars Comments OT Bathing Comments Heavy use of grab bars when standing due to leaning backwards rather than standing upright. Pt completed 90% of shower seated and stood only for hoda care of bottom. Pt needs min assist to dry feet. Pt tends to ask for help at times rather than try tasks himself. M M6 OT- IP Functional Cognition Start: 02/01/19 15:24 Freq: Status: Active Protocol: Document 02/03/19 15:54 PJM (Rec: 02/03/19 18:07 PJ [email or web address]) Cognitive Factors Limiting Selfcare Function Cognitive Ability Level of Alertness Alert Ability to Follow Commands Able to Follow One Step Commands Safety Awareness Decreased Recall of Precautions Decreased Ability to Apply Precautions Problem Solving Ability Unable to Identify Errors Needs Assist to Identify Solutions Cognitive Comments Cognitive Assessment Comments Pt continues to make excuses for poor sitting balance on the edge of bed e.g unstable bed or bed is too high. M7 OT- IP Mobility and Balance Start: 02/01/19 15:24 Freq: Status: Active Protocol: Document 02/03/19 15:54 PJM (Rec: 02/03/19 18:07 PJ [email or web address]) OT- Bed Mobility Assessment Rolling Type of Rolling Roll to Right Level of Assistance Standby Assistance Supine to Sit Supine to Sit Assist Standby Assistance Scooting Scooting to Edge of Bed Contact Guard Assistance OT-Transfer Assessment Sit to and From Stand Sit to and from Stand Contact Guard Assistance Transfers Transfer Ability Contact Guard Assistance Technique Transfer Destination Bed Shower Stall Transfer Technique Stand Step Pivot Devices Transfer Assistive Devices Gait Belt Front Wheeled Walker Comments Mobility Comments No loss of balance noted with FWW this session, improved sit to stand technique and ability today. OT- Gait Assessment Gait Gait Assistance Required: Contact Guard Assist Distance (Feet) 20 Assistive Devices Assistive Device Gait Belt Front Wheeled Walker OT- Balance Assessment Sitting Balance and Reactions Static Sitting Balance Ability Fair Dynamic Sitting Balance Ability Fair Standing Balance and Reactions Static Standing Balance Ability Fair Dynamic Standing Balance Ability Fair Comments Other Balance Tests/Deviations/Treatment Pt continues to demonstrate : decreased weight bearing on L hip in sitting and tends to keep feet off floor due to leaning backwards and R. This results in poor sitting balance. Pt needs max verbal cues to keep feet on floor and lean forward/left to center gravity in midline. M9 OT- IP Assessment and Plan Start: 02/01/19 15:24 Freq: Status: Active Protocol: Document 02/03/19 15:54 PJM (Rec: 02/03/19 18:07 PJ [email or web address]) OT Summary Assessment and Plan Potential Rehabilitation Potential Good Summary OT Impairments Strength Balance Functional Cognition Functional Mobility Dressing Bathing Toilet Transfers Shower Transfers Progress Towards Goals Progressing Toward Goals Assessment Summary Pt presents with better sit to stand performance and ability to weight bear and advance LLE today using FWW. Sitting balance remains poor sitting EOB. Pt able to complete seated portion of shower with SBA but needs min assist to dry and close SBA to CGA and mod cues for safety during standing portion of shower with heavy use of grab bars. Pt using L (non dominant hand consistently throughout shower and dressing tasks with less proximal dysmetria noted today . Pt needs min assist with dressing. Recommend acute IPR vs SNF for further rehab services. Pt not safe to live independently in his car which was his prior living situation. 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 Goals Self-Feeding Goal Independent Grooming Goal Independent Dressing Goal Independent Toileting Goal Independent Bathing Goal Independent Toilet Transfer Goal Independent Shower Transfer Goal Independent OT-Other Goals Goals for grooming and showering in standing. Days to Meet Goals 14 Frequency of Treatment Frequency Of Treatment Once a Day Treatment Plan OT Treatment Plan ADL Training Functional Cognition Training Functional Mobility Neuromuscular Re-education Therapeutic Exercises Patient/Family Education Discharge Planning Discharge Recommendations OT Discharge Recommendations Acute Rehab Other Discharge Recommendations vs SNF Home Equipment Needs Shower chair, FWW
--- NOTE | 2019-02-03 16:01 | CM.DPNOTE ---
TC placed to Jessika at [facility]; requested that pt be considered for admission for rehab. Jessika reviewing pt's Medicaid benefit. If pt has [facility] Medicaid as the chart indicates, [facility] will not be able to take this managed Medicaid. Jessika also explains that [facility] will not be (legally) capable of sending pt back to his car as a viable DCP, and at this time, that is the only plan pt has for DC. Pt is hopeful he will soon get an apt at [facility]. This RUGBY UNION FOOTBALLER unable to scallop dredger at [facility] today and they are only available Thu-Liza. P: Pt will likely remain admitted at until he can progress w/our therpy team towards the goal of DC home to his car. He will need to be able to ambulate safely w/walker to and from the public services he depends on to include public showers, restrooms, and food vásquez. It is the hope of this RUGBY UNION FOOTBALLER that pt can be secured an appt w/ a PCP in [place] that accepts Medicaid before his DC. Will follow closely Thursday. OWEN Duncan
[2019-02-03] MEDS: ATORVASTATIN 20 MG TABLET 40 MG PO (20:31)
[2019-02-04] VITALS (7 sets, daily range): BP systolic 122–185; BP diastolic 58–90; PULSE 47–53; RESP 16–20; TEMP 36.6–36.8; O2SAT 96–98
[2019-02-04] MEDS: hydroCHLOROthiazide 25 MG TABLET 50 MG PO (08:24)
[2019-02-04] MEDS: ASPIRIN EC 81 MG TABLET PO (08:24)
[2019-02-04] MEDS: AMLODIPINE 5 MG TABLET 10 MG PO (08:24)
[2019-02-04] MEDS: HEPARIN 5,000 UNIT/ML VIAL 5000 UNIT SUBCUT ×2 (08:24→20:41)
[2019-02-04] MEDS: SODIUM CHLORIDE 0.9% FLUSH 10 ML IV ×2 (08:25→20:41)
[2019-02-04] MEDS: LOSARTAN 50 MG TABLET PO (08:25)
[2019-02-04 09:01] LABS: Add Manual Diff / Slide Review NO; Basophils Absolute Auto 100 /uL (0-100); Basophils Percent Auto 0.9 % (0-2); Eosinophils Absolute Auto 200 /uL (0-450); Eosinophils Percent Auto 2.9 % (2-4); Hematocrit 46.8 % (41-53); Lymphocytes Absolute Auto 1400 /uL (1100-4500); Lymphocytes Percent Auto 16.2 % (25-40); Mean Corpuscular HGB Conc 34.1 % (30-36); Mean Corpuscular Hemoglobin 30.4 PG (26-34); Mean Corpuscular Volume 89.3 fL (80-100); Monocytes Absolute Auto 500 /uL (0-900); Monocytes Percent Auto 6.5 % (3-14); Neutrophils Absolute Auto 6200 /uL (1500-7000); Neutrophils Percent Auto 73.5 % (50-75); Platelet Count 166 X10^3/uL (150-400); Red Blood Cell Count 5.24 X10^6/uL (4.5-5.9); Red Cell Distribution Width 13.3 % (11.6-14.8); White Blood Cell Count 8.4 X10^3/uL (4.5-11.0)
[2019-02-04 09:08] LABS: BUN Creatinine Ratio 24.1 (6-22); Blood Urea Nitrogen 41 mg/dL (9-20); Calcium 9.9 mg/dL (8.4-10.2); Carbon Dioxide 25 mmol/L (22-32); Chloride 103 mmol/L (98-107); Estimated Glomerular Filt Rate 39.6 mL/min (>60); Glucose 101 mg/dL (80-110); HEMOLYSIS < 15 (0-50); Potassium 3.9 mmol/L (3.4-5.1); Sodium 138 mmol/L (137-145)
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
--- NOTE | 2019-02-04 12:25 | PT.IPTN ---
Current Diagnoses Hypertensive emergency (01/31/19) Physical Therapy Treatment Note M2 PT-IP Current Condition Start: 02/01/19 13:53 Freq: NEEDED Status: Active Protocol: Document 02/01/19 15:20 AB (Rec: 02/01/19 17:28 AB [id number]) Physical Therapy Current Condition Current Condition Evaluation Date 02/01/19 Treatment Diagnosis CVA; difficulty in walking Onset Date 01/31/19 Precautions Other Precautions Falls M3 PT-IP Subjective Start: 02/01/19 13:53 Freq: NEEDED Status: Active Protocol: Document 02/04/19 10:13 LJ (Rec: 02/04/19 12:25 LJ [id number]) Subjective Physical Therapy Visit Type Type Treatment Note Visit Start Time 10:13 Visit Stop Time 10:45 Total Visit Minutes 32 Physical Therapy Visit Comments Patient Comments Pt in bed willing to get up and work with PT M4 PT-IP Mobility and Gait Start: 02/01/19 13:53 Freq: NEEDED Status: Active Protocol: Document 02/04/19 10:13 LJ (Rec: 02/04/19 12:25 LJ [id number]) PT-Bed Mobility Assessment Rolling Type of Rolling Roll to Right Level of Assist Standby Assistance Supine to Sit Supine to Sit Standby Assistance Sit to Supine Sit to Supine Standby Assistance Scooting Scooting to Edge of Bed Standby Assistance PT-Transfer Assessment Sit to and From Stand Sit to and from Stand Standby Assistance Use of Upper Extremities Equipment Transfer Assistive Device Gait Belt Front Wheeled Walker Transfers Transfer Destination Chair Transfer Ability Level of Assist Standby Assistance Contact Guard Assistance Use of Upper Extremities Comments Mobility Comments Pt able to perform bed mobility and sit at side of bed with Cues and SBA. Slightly unsteady in seated position. Sit<>stand with use of UEs. Pt demonstrates unsteadiness and sway. Gait Assessment Gait Gait Assistance Required: Contact Guard Assist 1 Person Assist Distance (Feet) 35 Able to Maintain Weight Bearing Status Yes During Gait Gait Deviations General Gait Pattern Antalgic Ataxic Decreased Stride Length Decreased Feet Clearance Lateral Trunk Lean Factors Limiting Gait Function Factors Limiting Gait Function Decreased Activity Tolerance Difficulty Following Directions Incoordination Poor Balance Poor Safety Awareness Comments Gait Comments Pt requires cueing for LLE advancement in gait and positioning when turning. Foot clearance with LLE with slight circumduction and able to lift foot in dorsiflexion. Pt unsteady in ambulation with FWW in room. Requires CGA with gait activities. M5 PT-IP Objective Assessments Start: 02/01/19 13:53 Freq: NEEDED Status: Active Protocol: Document 02/01/19 15:20 AB (Rec: 02/01/19 17:28 AB [id number]) Orientation Orientation/Cognition Level of Alertness Alert Orientation Name Place Situation Gross Range of Motion Lower Extremity ROM Assessment Within Functional Limits Strength Lower Extremity Strength Assessment Within Functional Limits Muscle Tone Muscle Tone WNL Yes Other Assessments Other Other Assessments pt presents with incoordination and decrease motor planning during mobility and can be impulsive. M6 PT-IP Treatment Start: 02/01/19 13:53 Freq: NEEDED Status: Active Protocol: Document 02/03/19 14:15 GGD (Rec: 02/03/19 14:48 GGD [email or web address]) Physical Therapy Treatment Education Education Provided Safety Other Treatments Other Treatment Performed Standing balance with WBOS EO/ EC, head turns, weight shifts forward and backwards. Seated balance with leg lifts and reaching with UE. M7 PT-IP Assessment and Plan Start: 02/01/19 13:53 Freq: NEEDED Status: Active Protocol: Document 02/04/19 10:13 LJ (Rec: 02/04/19 12:25 LJ [id number]) PT Summary Assessment and Plan Potential Rehabilitation Potential Fair Summary Impairments ROM Strength Balance Coordination Sensation Tone Cognition Bed Mobility Transfers Gait Activity Tolerance Assessment Summary Tinetti Balance and Gait Assessment scored 8. Fall risk is high. Pt unsafe to return to previous living conditions. Goals Bed Mobility Goal Independent Transfer Goal Standby Assistance Front Wheeled Walker Gait Goal Standby Assistance Front Wheel Walker Gait Distance 200 Other Goals up/down 5 steps 1 rail CGA Days to Meet Goals 10 Frequency of Treatment Frequency Of Treatment Twice a Day Treatment Plan Physical Therapy Treatment Plan Bed Mobility Training Transfer Training Gait Training Therapeutic Exercise Balance Retraining Discharge Planning Hot or Cold Pack Neuromuscular Re-ed Coordination Retraining Manual Therapy Other Recommendations and Next Treatment sitting/standing balance, Focus ambulation Recommendations To Nursing Amount of Assist Needed Independent Discharge Recommendations PT Discharge Recommendations SNF Rehab Acute Rehab
--- NOTE | 2019-02-04 14:09 | PT.IPTN ---
Current Diagnoses Hypertensive emergency (01/31/19) Physical Therapy Treatment Note M2 PT-IP Current Condition Start: 02/01/19 13:53 Freq: NEEDED Status: Active Protocol: Document 02/01/19 15:20 AB (Rec: 02/01/19 17:28 AB [id number]) Physical Therapy Current Condition Current Condition Evaluation Date 02/01/19 Treatment Diagnosis CVA; difficulty in walking Onset Date 01/31/19 Precautions Other Precautions Falls M3 PT-IP Subjective Start: 02/01/19 13:53 Freq: NEEDED Status: Active Protocol: Document 02/04/19 13:18 LJ (Rec: 02/04/19 14:09 LJ [id number]) Subjective Physical Therapy Visit Type Type Treatment Note Visit Start Time 13:08 Visit Stop Time 13:48 Total Visit Minutes 40 Notes Co-treat with OT Physical Therapy Visit Comments Patient Comments Pt in bed willing to get up and work with PT M4 PT-IP Mobility and Gait Start: 02/01/19 13:53 Freq: NEEDED Status: Active Protocol: Document 02/04/19 13:18 LJ (Rec: 02/04/19 14:09 LJ [id number]) PT-Bed Mobility Assessment Rolling Type of Rolling Roll to Right Level of Assist Standby Assistance Supine to Sit Supine to Sit Standby Assistance Sit to Supine Sit to Supine Standby Assistance Scooting Scooting to Edge of Bed Standby Assistance PT-Transfer Assessment Sit to and From Stand Sit to and from Stand Standby Assistance Use of Upper Extremities Equipment Transfer Assistive Device Gait Belt Front Wheeled Walker Transfers Transfer Destination Bed Transfer Ability Level of Assist Standby Assistance Contact Guard Assistance 1 Person Assistance Use of Upper Extremities Comments Mobility Comments Pt experienced several LOB while sitting on side of bed and while maneuvering in bed. Pt has left and posterior direction lean. Experienced one posterior LOB when attempting sit>stand. ModA for recovery to upright. Three sit<>stand from bed to simulate getting into and out of his vehicle. Use of UEs and FWW for bracing. Gait Assessment Gait Gait Assistance Required: Contact Guard Assist 1 Person Assist Distance (Feet) 60 Able to Maintain Weight Bearing Status Yes During Gait Assistive Devices Assistive Device Gait Belt Front Wheeled Walker Orthotic/Prosthetic Devices or Brace: No Gait Deviations General Gait Pattern Antalgic Decreased Stride Length Decreased Feet Clearance Flexed Trunk Lateral Trunk Lean Narrow Based Gait Factors Limiting Gait Function Factors Limiting Gait Function Decreased Activity Tolerance Decreased Strength Difficulty Following Directions Incoordination Poor Balance Poor Safety Awareness Comments Gait Comments Pt ambulating in room experiencing several LOB which he corrected. Occasional buckling on LLE with decreased stance time on LLE. Ambulated around room x2 with CGA and FWW occasionally bumping FWW with LLE. M5 PT-IP Objective Assessments Start: 02/01/19 13:53 Freq: NEEDED Status: Active Protocol: Document 02/01/19 15:20 AB (Rec: 02/01/19 17:28 AB [id number]) Orientation Orientation/Cognition Level of Alertness Alert Orientation Name Place Situation Gross Range of Motion Lower Extremity ROM Assessment Within Functional Limits Strength Lower Extremity Strength Assessment Within Functional Limits Muscle Tone Muscle Tone WNL Yes Other Assessments Other Other Assessments pt presents with incoordination and decrease motor planning during mobility and can be impulsive. M6 PT-IP Treatment Start: 02/01/19 13:53 Freq: NEEDED Status: Active Protocol: Document 02/04/19 13:18 LULY (Rec: 02/04/19 14:09 LULY [id number]) Physical Therapy Treatment Exercises Exercises Gluteal Sets Quad Sets Straight Leg Raises Supine Hip Abduction Education Education Provided Safety Other Treatments Other Treatment Performed Standing balance leaning on wall attempting to don and tie shoes. RLE able to support weight, LLE repeatedly buckling with pt decrease in ability to maintain quad contraction. Heavy reliance on wall and FWW for support. Needed cues for repositioning LLE for better support. M7 PT-IP Assessment and Plan Start: 02/01/19 13:53 Freq: NEEDED Status: Active Protocol: Document 02/04/19 13:18 LULY (Rec: 02/04/19 14:09 LULY [id number]) PT Summary Assessment and Plan Potential Rehabilitation Potential Fair Summary Impairments ROM Strength Balance Coordination Sensation Tone Cognition Bed Mobility Transfers Gait Activity Tolerance Assessment Summary OT and PT treatment focused on simulating pt getting into and out of vehicle and positioning self for sleeping in vehicle. Pt experienced several episodes of LOB while seated and also while donning shoes while in supine position . Unable to control roll to left with LLE slipping off bed x2. Standing at couch simulating tying shoes and braced against wall using FWW for addidional support, pt repeatedly required cues for quad contraction to maintain SLS while tying right shoe. Pt unaware of his leg beginning to buckle. Pt with difficulty simulating returning to living in his vehicle w/o significant difficulty. Goals Bed Mobility Goal Independent Transfer Goal Standby Assistance Front Wheeled Walker Gait Goal Standby Assistance Front Wheel Walker Gait Distance 200 Other Goals up/down 5 steps 1 rail CGA Days to Meet Goals 10 Frequency of Treatment Frequency Of Treatment Twice a Day Treatment Plan Physical Therapy Treatment Plan Bed Mobility Training Transfer Training Gait Training Therapeutic Exercise Balance Retraining Discharge Planning Hot or Cold Pack Neuromuscular Re-ed Coordination Retraining Manual Therapy Other Recommendations and Next Treatment sitting/standing balance, Focus ambulation Recommendations To Nursing Amount of Assist Needed Independent Discharge Recommendations PT Discharge Recommendations SNF Rehab Acute Rehab
--- NOTE | 2019-02-04 18:01 | OT.IP.TRT ---
Current Diagnoses Hypertensive emergency (01/31/19) Occupational Therapy Treatment Note M2 OT-IP Current Condition Start: 02/01/19 15:24 Freq: Status: Active Protocol: Document 02/01/19 15:24 [facility] (Rec: 02/01/19 16:15 [facility] [id number]) Occupational Therapy Current Condition Current Condition Evaluation Date 02/01/19 Treatment Diagnosis CVA with left weakness Diagnosis Onset Date 01/31/19 Weight Bearing Status Weight Bearing Status Weight Bear as Tolerated M3 OT- IP Subjective and Pain Start: 02/01/19 15:24 Freq: Status: Active Protocol: Document 02/04/19 17:12 [facility] (Rec: 02/04/19 18:00 [facility] [id number]) OT- Subjective Occupational Therapy Visit Type Type Treatment Note Visit Start Time 09:10 Visit Stop Time 10:05 Total Visit Minutes 85 Notes Pt seen in the PM with [employer]EN HANGER for high level balance needs. OT Pain Assessment Pain When Pain Assessed After Treatment Pain Present Pain Present Denied Pain M4 OT- IP ADL's Start: 02/01/19 15:24 Freq: Status: Active Protocol: Document 02/04/19 17:12 [facility] (Rec: 02/04/19 18:00 [facility] [id number]) OT ADL-Dressing General Eval Lower Body Dressing Ability Minimal Assistance Areas Needing Assistance Socks Shoes Comments OT Dressing Comments Pt needing assist to tie left shoe, vc to sigrid left side first for brief. Pt tends to lean backwards. OT ADL-Toileting General Evaluation Toileting Ability Standby Assistance Devices Toileting Assistive Devices Commode Comments OT Toileting Comments Pt able to get to the commode and needing heavy use of grab bars to stand and to sit down to the commode. Pt is unsteady his feet. M5 OT- IP IADL's Start: 02/01/19 15:24 Freq: Status: Active Protocol: Document 02/01/19 15:24 [facility] (Rec: 02/01/19 16:15 [facility] [id number]) OT-Instrumental Activities of Daily Living Medication Management Medication Management Comments Pt states at this time does not use any medications. Meal Preparation Meal Preparation Comments Has meals at [facility]. M6 OT- IP Functional Cognition Start: 02/01/19 15:24 Freq: Status: Active Protocol: Document 02/04/19 17:12 [facility] (Rec: 02/04/19 18:00 [facility] [id number]) Cognitive Factors Limiting Selfcare Function Cognitive Ability Level of Alertness Alert Attention Span Ability Capable of Focused Attention Capable of Sustained Attention Ability to Follow Commands Able to Follow One Step Commands Safety Awareness Underestimates Need for Assistance Problem Solving Ability Needs Assist to Identify Solutions M7 OT- IP Mobility and Balance Start: 02/01/19 15:24 Freq: Status: Active Protocol: Document 02/04/19 17:12 [facility] (Rec: 02/04/19 18:00 [facility] [id number]) OT- Bed Mobility Assessment Rolling Type of Rolling Roll to Right Level of Assistance Standby Assistance Supine to Sit Supine to Sit Assist Standby Assistance Scooting Scooting to Edge of Bed Standby Assistance OT-Transfer Assessment Sit to and From Stand Sit to and from Stand Standby Assistance Transfers Transfer Ability Standby Assistance Contact Guard Assistance Technique Transfer Destination Bed Toilet Transfer Technique Stand Step Pivot Devices Transfer Assistive Devices Gait Belt Front Wheeled Walker Comments Mobility Comments Pt as tired when up on his feet has difficulty with picking up his left leg and at times almost trips over his feet while up using the FWW. OT- Balance Assessment Sitting Balance and Reactions Static Sitting Balance Ability Fair Dynamic Sitting Balance Ability Fair Standing Balance and Reactions Static Standing Balance Ability Fair Dynamic Standing Balance Ability Fair Comments Other Balance Tests/Deviations/Treatment Pt continues to have decreased : balance. Worked on sit to stand from recliner, bridging with hand on the bed while standing, and trying to focus of pt to use LUE and LLE. Stimulated with [employer]ER of pt trying to get into his trunk in order to sleep, as pt homeless and currently sleeps in his truck. M8 OT- IP Objective Assessments Start: 02/01/19 15:24 Freq: Status: Active Protocol: Document 02/02/19 16:35 [facility] (Rec: 02/03/19 09:06 [facility] [id number]) OT Strength Comments Strength Comments B gross grasp, lateral pinch, palmar pinch and tip pinch strength all WNL when tested with dynamometer and pinch gauge with results below: R Gross Grasp 80 lbs (Norm 50- 102) L Gross Grasp 56 lbs ( Norm 44-95) R Lateral Pinch 23 (Norm 13-22 ) L Lateral Pinch 20 ( Norm 11.5-20.5) R Palmar Pinch 18 (Norm 10-19) L Palmar Pinch 15 ( Norm 9-20.5) R Tip Pinch 18 (Norm 9-20) L Tip Pinch 15 ( Norm 8.5-20) R OT- Coordination Assessment Upper Extremity Finger to Nose Test Left UE Impaired Finger Tapping Test Left UE Impaired 9-Hole Peg Hand Test Hand Right Scoring Time 28 Interpretation Within Normal Range Norm For Patients Age/Sex 17-30 sec Left Scoring Time 52 Interpretation Impaired Norm For Patients Age/Sex 16-33 OT-Muscle Tone Assessment Muscle Tone Location Left Upper Extremity Type of Tone Hypertonicity Severity of Tone Mild Keny Grade Scale Grade 1 Comments Muscle Tone Comments proximal dysmetria interferes with distal stability for fine prehension tasks M9 OT- IP Assessment and Plan Start: 02/01/19 15:24 Freq: Status: Active Protocol: OT Summary Assessment and Plan Potential Rehabilitation Potential Good Summary OT Impairments Strength Balance Functional Cognition Functional Mobility Dressing Bathing Toilet Transfers Shower Transfers Progress Towards Goals Progressing Toward Goals Assessment Summary Pt still a high fall risk due to left neglect and weakness to left side. Recommend acute IPR vs SNF for further rehab services. Pt not safe to live independently in his car which was his prior living situation. PHARMACOGNOSIST working on housing and rehab options. Goals Self-Feeding Goal Independent Grooming Goal Independent Dressing Goal Independent Toileting Goal Independent Bathing Goal Independent Toilet Transfer Goal Independent Shower Transfer Goal Independent OT-Other Goals Goals for grooming and showering in standing. Days to Meet Goals 14 Frequency of Treatment Frequency Of Treatment Once a Day Treatment Plan OT Treatment Plan ADL Training Functional Cognition Training Functional Mobility Neuromuscular Re-education Therapeutic Exercises Patient/Family Education Discharge Planning Discharge Recommendations OT Discharge Recommendations Acute Rehab Other Discharge Recommendations vs SNF Home Equipment Needs Shower chair, FWW
[2019-02-04] MEDS: cloNIDine 0.1 MG TABLET PO (20:41)
[2019-02-04] MEDS: ATORVASTATIN 20 MG TABLET 40 MG PO (20:41)
[2019-02-04 22:49] LABS: Metanephrine, Free 50 pg/mL (< OR = 57); Normetanephrine, Free 86 pg/mL (< OR = 148)
[2019-02-05] VITALS (7 sets, daily range): BP systolic 114–151; BP diastolic 61–80; PULSE 40–56; RESP 16–18; TEMP 36.1–36.5; O2SAT 97–98
--- NOTE | 2019-02-05 01:00 | PC.NURSE ---
Addendum entered by Krupa Toribio R.N. 02/05/19 04:10: HR cont to remain low 30's and has dipped down to 28-29. Provider notified and to do a medication and order review. Original Note: Assumed care of pt at 2300 on 02/04/19. Pt sleeping, door open for close monitoring. Continues to have significant bradycardia in mid 30's-50's. Pt asymtomatic. Arouses to voice. Tele on. CPOX on. Bed alarm on. Call light within reach.
[2019-02-05 07:38] LABS: Add Manual Diff / Slide Review NO; Basophils Absolute Auto 100 /uL (0-100); Basophils Percent Auto 0.9 % (0-2); Eosinophils Absolute Auto 200 /uL (0-450); Eosinophils Percent Auto 2.8 % (2-4); Hematocrit 45.9 % (41-53); Hemoglobin 15.5 g/dL (13.5-17.5); Lymphocytes Absolute Auto 1500 /uL (1100-4500); Lymphocytes Percent Auto 19.7 % (25-40); Mean Corpuscular HGB Conc 33.9 % (30-36); Mean Corpuscular Hemoglobin 30.5 PG (26-34); Monocytes Absolute Auto 700 /uL (0-900); Monocytes Percent Auto 8.7 % (3-14); Neutrophils Absolute Auto 5300 /uL (1500-7000); Neutrophils Percent Auto 67.9 % (50-75); Platelet Count 169 X10^3/uL (150-400); Red Blood Cell Count 5.09 X10^6/uL (4.5-5.9); Red Cell Distribution Width 13.3 % (11.6-14.8); White Blood Cell Count 7.8 X10^3/uL (4.5-11.0)
[2019-02-05 07:57] LABS: BUN Creatinine Ratio 30.6 (6-22); Blood Urea Nitrogen 49 mg/dL (9-20); Calcium 9.8 mg/dL (8.4-10.2); Carbon Dioxide 25 mmol/L (22-32); Chloride 102 mmol/L (98-107); Estimated Glomerular Filt Rate 42.5 mL/min (>60); Glucose 99 mg/dL (80-110); HEMOLYSIS 29 (0-50); Potassium 3.9 mmol/L (3.4-5.1); Sodium 137 mmol/L (137-145)
[2019-02-05] MEDS: SODIUM CHLORIDE 0.9% FLUSH 10 ML IV ×2 (08:22→20:59)
[2019-02-05] MEDS: HEPARIN 5,000 UNIT/ML VIAL 5000 UNIT SUBCUT ×2 (08:22→20:58)
[2019-02-05] MEDS: cloNIDine 0.1 MG TABLET PO ×2 (08:22→21:01)
[2019-02-05] MEDS: AMLODIPINE 5 MG TABLET 10 MG PO (08:23)
[2019-02-05] MEDS: ASPIRIN EC 81 MG TABLET PO (08:23)
[2019-02-05 08:43] LABS: Plama Renin, LC/MS/MS 0.51 ng/mL/h (0.25-5.82)
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
--- NOTE | 2019-02-05 09:15 | PT.IPTN ---
Current Diagnoses Hypertensive emergency (01/31/19) Physical Therapy Treatment Note M2 PT-IP Current Condition Start: 02/01/19 13:53 Freq: NEEDED Status: Active Protocol: Document 02/01/19 15:20 AB (Rec: 02/01/19 17:28 AB [id number]) Physical Therapy Current Condition Current Condition Evaluation Date 02/01/19 Treatment Diagnosis CVA; difficulty in walking Onset Date 01/31/19 Precautions Other Precautions Falls M3 PT-IP Subjective Start: 02/01/19 13:53 Freq: NEEDED Status: Active Protocol: Document 02/05/19 09:15 AB (Rec: 02/05/19 12:32 AB [id number]) Subjective Physical Therapy Visit Type Type Treatment Note Visit Start Time 09:15 Visit Stop Time 09:40 Total Visit Minutes 25 Number of LOCKSTITCHER Visits 0 Physical Therapy Visit Comments Patient Comments Pt agreeable to do PT M4 PT-IP Mobility and Gait Start: 02/01/19 13:53 Freq: NEEDED Status: Active Protocol: Document 02/05/19 09:15 AB (Rec: 02/05/19 12:32 AB [id number]) PT-Bed Mobility Assessment Supine to Sit Supine to Sit Standby Assistance Sit to Supine Sit to Supine Standby Assistance PT-Transfer Assessment Sit to and From Stand Sit to and from Stand Minimal Assistance 1 Person Assistance Use of Upper Extremities Equipment Transfer Assistive Device Gait Belt Front Wheeled Walker Orthotic/Prosthetic Devices or Brace: No Comments Mobility Comments pt completed supine to sit SBA but with difficulty and needed increase time to complete task. educated pt on body positioning and balance correction in sitting. pt continues to have increase posterior trunk LOB and requires cues to correct position and rebalance. pt completed sit <> stand x 5 reps. completed first 3 reps with use of UE and pt completed with min A and cues for steadiness with initial standing. pt completed last 2 reps without use of UE and required max A and max cues. pt completed static standing balance without AD min A with cues for positioning, LLE activation and balance. Gait Assessment Gait Gait Assistance Required: Minimum Assistance Moderate Assistance Distance (Feet) 225 Able to Maintain Weight Bearing Status Yes During Gait Assistive Devices Assistive Device Gait Belt Front Wheeled Walker Orthotic/Prosthetic Devices or Brace: No Gait Deviations General Gait Pattern Antalgic Decreased Stride Length Decreased Feet Clearance Lateral Trunk Lean Factors Limiting Gait Function Factors Limiting Gait Function Decreased Activity Tolerance Decreased Strength Difficulty Following Directions Incoordination Poor Balance Poor Safety Awareness Comments Gait Comments pt completed ambulation using FWW ~ 225ft requiring mod A and max cues for increase LLE elevation and weight shifting. pt with increase antalgic and LLE dragging gait after a few feet of walking with increase L lateral trunk lean requiring cues and assistance to correct. M5 PT-IP Objective Assessments Start: 02/01/19 13:53 Freq: NEEDED Status: Active Protocol: Document 02/01/19 15:20 AB (Rec: 02/01/19 17:28 AB [id number]) Orientation Orientation/Cognition Level of Alertness Alert Orientation Name Place Situation Gross Range of Motion Lower Extremity ROM Assessment Within Functional Limits Strength Lower Extremity Strength Assessment Within Functional Limits Muscle Tone Muscle Tone WNL Yes Other Assessments Other Other Assessments pt presents with incoordination and decrease motor planning during mobility and can be impulsive. M6 PT-IP Treatment Start: 02/01/19 13:53 Freq: NEEDED Status: Active Protocol: Document 02/05/19 09:15 AB (Rec: 02/05/19 12:32 AB [id number]) Physical Therapy Treatment Education Education Provided Safety M7 PT-IP Assessment and Plan Start: 02/01/19 13:53 Freq: NEEDED Status: Active Protocol: Document 02/05/19 09:15 AB (Rec: 02/05/19 12:32 AB [id number]) PT Summary Assessment and Plan Potential Rehabilitation Potential Good Summary Impairments Pain ROM Strength Balance Coordination Sensation Tone Cognition Bed Mobility Transfers Gait Activity Tolerance Progress Towards Goals Slow Progress due to Medical Issues Assessment Summary pt continues to require mod A with ambulation using FWW and requires cues for all tasks. pt progressing slowly with standing stability. pt will require SNF rehab or acute rehab to improve strength and mobility. Goals Bed Mobility Goal Independent Transfer Goal Standby Assistance Front Wheeled Walker Gait Goal Standby Assistance Front Wheel Walker Gait Distance 200 Other Goals up/down 5 steps 1 rail CGA Days to Meet Goals 10 Frequency of Treatment Frequency Of Treatment Twice a Day Treatment Plan Physical Therapy Treatment Plan Bed Mobility Training Transfer Training Gait Training Therapeutic Exercise Balance Retraining Discharge Planning Hot or Cold Pack Neuromuscular Re-ed Coordination Retraining Manual Therapy Other Recommendations and Next Treatment sitting/standing balance, Focus ambulation Recommendations To Nursing Amount of Assist Needed 1 Person Assist Discharge Recommendations PT Discharge Recommendations SNF Rehab Acute Rehab
--- NOTE | 2019-02-05 09:21 | CM.DPNOTE ---
Met w/pt again yesterday, reviewed DCP efforts. Pt tends to perseverate over getting an apt at [facility] and asks multiple staff to call the managers to encourage expedited placement. This AUDIOLOGIST reiterates the importance of getting a roof over his head especially w/history of medical complications, pt admits living in his car is a last resort but will not entertain any option if it is shared living. We reviewed [facility] funded by Medicaid, getting on the list at [facility] in [place], renting a room, and/or staying at [facility] in [facility]. Pt denies these as options. He states the waiting list is too long for [facility]. Discussed pt's current deficits since having a stroke; pt seems to lack insight today into the extent of his debility. He discusses his showering routine at [facility], where there are grab bars, then discusses shaving at [facility] bathrooms. This AUDIOLOGIST asks if pt will be able to stand to compete these tasks? Pt states he is almost back to baseline aside from a little left sided weakness. Pt says he does not have any friends close enough to do a SBA for BR. Continuing to review available resources but pt not agreeable. He is waiting for an apt t [facility]. Pt can DC when he can use a walker safely for short distances. OWEN Duncan
--- NOTE | 2019-02-05 14:25 | PT.IPTN ---
Current Diagnoses Hypertensive emergency (01/31/19) Physical Therapy Treatment Note M2 PT-IP Current Condition Start: 02/01/19 13:53 Freq: NEEDED Status: Active Protocol: Document 02/01/19 15:20 AB (Rec: 02/01/19 17:28 AB [id number]) Physical Therapy Current Condition Current Condition Evaluation Date 02/01/19 Treatment Diagnosis CVA; difficulty in walking Onset Date 01/31/19 Precautions Other Precautions Falls M3 PT-IP Subjective Start: 02/01/19 13:53 Freq: NEEDED Status: Active Protocol: Document 02/05/19 14:25 GGD (Rec: 02/05/19 16:08 GGD [id number]) Subjective Physical Therapy Visit Type Type Treatment Note Visit Start Time 13:45 Visit Stop Time 14:25 Total Visit Minutes 40 Number of INSPECTOR TIMERS Visits 1 Physical Therapy Visit Comments Patient Comments Pt willing to work with PT. M4 PT-IP Mobility and Gait Start: 02/01/19 13:53 Freq: NEEDED Status: Active Protocol: Document 02/05/19 14:25 GGD (Rec: 02/05/19 16:08 GGD [id number]) PT-Transfer Assessment Sit to and From Stand Sit to and from Stand Contact Guard Assistance Minimal Assistance 1 Person Assistance Use of Upper Extremities Equipment Transfer Assistive Device Gait Belt Front Wheeled Walker Orthotic/Prosthetic Devices or Brace: No Transfers Transfer Destination Bed Wheelchair Car Transfer Ability Level of Assist Standby Assistance Contact Guard Assistance 1 Person Assistance Use of Upper Extremities Comments Mobility Comments Pt transfer to W/C and then to car with CGA and able to close and lift walker into car . Walk around car to transfer to sidelying in backside with CGA. Then transfer to W/C and back to bed. Gait Assessment Gait Gait Assistance Required: Contact Guard Assist Minimum Assistance 1 Person Assist Distance (Feet) 100 Able to Maintain Weight Bearing Status Yes During Gait Assistive Devices Assistive Device Gait Belt Front Wheeled Walker Orthotic/Prosthetic Devices or Brace: No Gait Deviations General Gait Pattern Antalgic Decreased Stride Length Decreased Feet Clearance Lateral Trunk Lean Factors Limiting Gait Function Factors Limiting Gait Function Decreased Activity Tolerance Decreased Strength Difficulty Following Directions Incoordination Poor Balance Poor Safety Awareness Comments Gait Comments Pt ambulated around car without FWW with UE support on car. M5 PT-IP Objective Assessments Start: 02/01/19 13:53 Freq: NEEDED Status: Active Protocol: Document 02/01/19 15:20 AB (Rec: 02/01/19 17:28 AB [id number]) Orientation Orientation/Cognition Level of Alertness Alert Orientation Name Place Situation Gross Range of Motion Lower Extremity ROM Assessment Within Functional Limits Strength Lower Extremity Strength Assessment Within Functional Limits Muscle Tone Muscle Tone WNL Yes Other Assessments Other Other Assessments pt presents with incoordination and decrease motor planning during mobility and can be impulsive. M6 PT-IP Treatment Start: 02/01/19 13:53 Freq: NEEDED Status: Active Protocol: Document 02/05/19 14:25 GGD (Rec: 02/05/19 16:08 GGD [id number]) Physical Therapy Treatment Education Education Provided Safety M7 PT-IP Assessment and Plan Start: 02/01/19 13:53 Freq: NEEDED Status: Active Protocol: Document 02/05/19 14:25 GGD (Rec: 02/05/19 16:08 GGD [id number]) PT Summary Assessment and Plan Summary Assessment Summary Pt was safe with functional mobility for car transfers. He still unsafe and had LOB with sit to stand from bed. He need cues for left LE with gait. He is progressing slowly with gait and balance. Frequency of Treatment Frequency Of Treatment Twice a Day Treatment Plan Physical Therapy Treatment Plan Bed Mobility Training Transfer Training Gait Training Therapeutic Exercise Balance Retraining Discharge Planning Hot or Cold Pack Neuromuscular Re-ed Coordination Retraining Manual Therapy Other Recommendations and Next Treatment sitting/standing balance, Focus ambulation, fall recovery Recommendations To Nursing Amount of Assist Needed 1 Person Assist Discharge Recommendations PT Discharge Recommendations SNF Rehab Acute Rehab
--- NOTE | 2019-02-05 14:54 | CM.DPNOTE ---
Pt discussed again in multi-disciplinary rounds. Plan now is DC back to his car Thursday which leaves additional time with the therapy staff here over the w/e, and the ability to secure a PCP appt. Thursday w/ pt's Medicare Part B coverage. Just now discussed pt's progress w/ KENZIE Damon; pt making remarkable progress functionally. therapy team working diligently to guide/aid in this gentleman's progression back to the most realistic (although not ideal) DC setting of a car. Therapy team took pt out to his parked vehicle today to practice in and around his car. By Thursday, it is expected that pt will be ready to safely navigate in/out of his vehicle and in/out of public services he relies on. KENZIE Damon suggests pt pay extra $ to shower at the [facility] because it is w/c accessible and there are people present in case pt has a fall. OWEN Duncan
--- NOTE | 2019-02-05 16:18 | OT.IP.TRT ---
Current Diagnoses Hypertensive emergency (01/31/19) Occupational Therapy Treatment Note M2 OT-IP Current Condition Start: 02/01/19 15:24 Freq: Status: Active Protocol: Document 02/01/19 15:24 [facility] (Rec: 02/01/19 16:15 [facility] [id number]) Occupational Therapy Current Condition Current Condition Evaluation Date 02/01/19 Treatment Diagnosis CVA with left weakness Diagnosis Onset Date 01/31/19 Weight Bearing Status Weight Bearing Status Weight Bear as Tolerated M3 OT- IP Subjective and Pain Start: 02/01/19 15:24 Freq: Status: Active Protocol: Document 02/05/19 15:44 [facility] (Rec: 02/05/19 16:18 [facility] [id number]) OT- Subjective Occupational Therapy Visit Type Type Treatment Note Visit Start Time 13:45 Visit Stop Time 14:40 Total Visit Minutes 55 Occupational Therapy Visit Comments Patient Comments Pt willing to try to get into his car and see if able to do so with use of FWW or just be able to lean against the car to walk around the car. OT Pain Assessment Pain When Pain Assessed At Rest Pain Present Pain Present Denied Pain M4 OT- IP ADL's Start: 02/01/19 15:24 Freq: Status: Active Protocol: Document 02/05/19 15:44 [facility] (Rec: 02/05/19 16:18 [facility] [id number]) OT ADL-Dressing General Eval Upper Body Dressing Ability Moderate Assistance Lower Body Dressing Ability Moderate Assistance Areas Needing Assistance Button-Up Shirt/Blouse Pants/Shorts Socks Shoes Comments OT Dressing Comments Pt needs assist to sigrid jacket over left arm, increased time to get jacket sleeve off of left arm. Pt poor sitting balance especially on hospital and falling over to the side and back while trying to sigrid hospital pants on. Pt needing from WEST to MODA to stand and guard balance. Pt states typically dressing in his car, however showers at [place] and would have to dress standing. OT ADL-Toileting General Evaluation Toileting Ability Standby Assistance Areas Needing Assistance Empty Catheter or Colostomy Devices Toileting Assistive Devices Urinal Comments OT Toileting Comments Pt able to use urinal while sitting from edge of recliner. Pt states has urgencies often to urinate and at times for bowel movement. OT ADL-Bathing Comments OT Bathing Comments Pt would benefit from shower chair for safety as has poor dynamic balance or to shower somewhere that has a bench / seat already in place. M5 OT- IP IADL's Start: 02/01/19 15:24 Freq: Status: Active Protocol: Document 02/01/19 15:24 [facility] (Rec: 02/01/19 16:15 [facility] [id number]) OT-Instrumental Activities of Daily Living Medication Management Medication Management Comments Pt states at this time does not use any medications. Meal Preparation Meal Preparation Comments Has meals at [facility]. M6 OT- IP Functional Cognition Start: 02/01/19 15:24 Freq: Status: Active Protocol: Document 02/05/19 15:44 [facility] (Rec: 02/05/19 16:18 [facility] [id number]) Cognitive Factors Limiting Selfcare Function Cognitive Ability Level of Alertness Alert Attention Span Ability Capable of Focused Attention Capable of Sustained Attention Ability to Follow Commands Able to Follow One Step Commands Safety Awareness Underestimates Need for Assistance Problem Solving Ability Needs Assist to Identify Solutions Cognitive Comments Cognitive Assessment Comments Pt continues to minimize deficits. M7 OT- IP Mobility and Balance Start: 02/01/19 15:24 Freq: Status: Active Protocol: Document 02/05/19 15:44 [facility] (Rec: 02/05/19 16:18 [facility] [id number]) OT- Bed Mobility Assessment Rolling Type of Rolling Roll to Right Level of Assistance Standby Assistance Supine to Sit Supine to Sit Assist Standby Assistance Minimal Assistance Scooting Scooting to Edge of Bed Standby Assistance OT-Transfer Assessment Sit to and From Stand Sit to and from Stand Standby Assistance Minimal Assistance Moderate Assistance Transfers Transfer Ability Standby Assistance Contact Guard Assistance Technique Transfer Destination Bed Chair Transfer Technique Stand Step Pivot Devices Transfer Assistive Devices Gait Belt Front Wheeled Walker Comments Mobility Comments Pt continues to lean to the left and neglect left side when tiring. OT- Balance Assessment Sitting Balance and Reactions Static Sitting Balance Ability Fair Dynamic Sitting Balance Ability Poor Standing Balance and Reactions Static Standing Balance Ability Fair Dynamic Standing Balance Ability Poor Comments Other Balance Tests/Deviations/Treatment Pt balance better when on : supported surface or leaning against wall,car,etc... M8 OT- IP Objective Assessments Start: 02/01/19 15:24 Freq: Status: Active Protocol: Document 02/02/19 16:35 [facility] (Rec: 02/03/19 09:06 [facility] [id number]) OT Strength Comments Strength Comments B gross grasp, lateral pinch, palmar pinch and tip pinch strength all WNL when tested with dynamometer and pinch gauge with results below: R Gross Grasp 80 lbs (Norm 50- 102) L Gross Grasp 56 lbs ( Norm 44-95) R Lateral Pinch 23 (Norm 13-22 ) L Lateral Pinch 20 ( Norm 11.5-20.5) R Palmar Pinch 18 (Norm 10-19) L Palmar Pinch 15 ( Norm 9-20.5) R Tip Pinch 18 (Norm 9-20) L Tip Pinch 15 ( Norm 8.5-20) R OT- Coordination Assessment Upper Extremity Finger to Nose Test Left UE Impaired Finger Tapping Test Left UE Impaired 9-Hole Peg Hand Test Hand Right Scoring Time 28 Interpretation Within Normal Range Norm For Patients Age/Sex 17-30 sec Left Scoring Time 52 Interpretation Impaired Norm For Patients Age/Sex 16-33 OT-Muscle Tone Assessment Muscle Tone Location Left Upper Extremity Type of Tone Hypertonicity Severity of Tone Mild Keny Grade Scale Grade 1 Comments Muscle Tone Comments proximal dysmetria interferes with distal stability for fine prehension tasks M9 OT- IP Assessment and Plan Start: 02/01/19 15:24 Freq: Status: Active Protocol: Document 02/05/19 15:44 [facility] (Rec: 02/05/19 16:18 [facility] [id number]) OT Summary Assessment and Plan Potential Rehabilitation Potential Good Summary OT Impairments Strength Balance Functional Mobility Dressing Toileting Bathing Toilet Transfers Shower Transfers Progress Towards Goals Progressing Toward Goals Slow Progress due to Medical Issues Assessment Summary Pt still having decreased balance and neglect however with CGA able to use FWW to get into his car and manage FWW. However pt unable to sit at edge of bed to sigrid pants and needing MODA . Pt is still a high fall risk and would benefit from skilled rehab or acute rehab. Goals Self-Feeding Goal Independent Grooming Goal Independent Dressing Goal Independent Toileting Goal Independent Bathing Goal Independent Toilet Transfer Goal Independent Shower Transfer Goal Independent Days to Meet Goals 10 Frequency of Treatment Frequency Of Treatment Once a Day Treatment Plan OT Treatment Plan ADL Training Functional Mobility Patient/Family Education Discharge Planning Other Treatment Recommendations and Next Shower Treatment Focus Discharge Recommendations OT Discharge Recommendations SNF Rehab Acute Rehab Home Equipment Needs Shower chair, FWW
[2019-02-05 17:47] LABS: Creatinine, Random Urine 99 mg/dL (20-320); Metanephrine, Ur 84 (21-153); Normetanephrine, Urine 180 (108-524)
[2019-02-05] MEDS: ATORVASTATIN 20 MG TABLET 40 MG PO (20:59)
[2019-02-06] VITALS (8 sets, daily range): BP systolic 107–128; BP diastolic 56–75; PULSE 33–68; RESP 16–18; TEMP 36.3–37; O2SAT 96–99
[2019-02-06 07:18] LABS: Add Manual Diff / Slide Review NO; Basophils Absolute Auto 100 /uL (0-100); Basophils Percent Auto 1.2 % (0-2); Eosinophils Absolute Auto 200 /uL (0-450); Eosinophils Percent Auto 2.7 % (2-4); Hematocrit 47.1 % (41-53); Lymphocytes Absolute Auto 1500 /uL (1100-4500); Lymphocytes Percent Auto 19.3 % (25-40); Mean Corpuscular Hemoglobin 30.6 PG (26-34); Mean Corpuscular Volume 89.9 fL (80-100); Monocytes Absolute Auto 600 /uL (0-900); Monocytes Percent Auto 8.1 % (3-14); Neutrophils Absolute Auto 5300 /uL (1500-7000); Neutrophils Percent Auto 68.7 % (50-75); Platelet Count 169 X10^3/uL (150-400); Red Blood Cell Count 5.24 X10^6/uL (4.5-5.9); Red Cell Distribution Width 13.3 % (11.6-14.8); White Blood Cell Count 7.8 X10^3/uL (4.5-11.0)
[2019-02-06 07:24] LABS: Blood Urea Nitrogen 51 mg/dL (9-20); Calcium 9.9 mg/dL (8.4-10.2); Carbon Dioxide 23 mmol/L (22-32); Chloride 102 mmol/L (98-107); Estimated Glomerular Filt Rate 45.7 mL/min (>60); Glucose 100 mg/dL (80-110); HEMOLYSIS < 15 (0-50); Sodium 136 mmol/L (137-145)
[2019-02-06] MEDS: cloNIDine 0.1 MG TABLET PO ×2 (08:01→21:50)
[2019-02-06] MEDS: AMLODIPINE 5 MG TABLET 10 MG PO (08:01)
[2019-02-06] MEDS: HEPARIN 5,000 UNIT/ML VIAL 5000 UNIT SUBCUT ×2 (08:01→21:50)
[2019-02-06] MEDS: ASPIRIN EC 81 MG TABLET PO (08:01)
[2019-02-06] MEDS: SODIUM CHLORIDE 0.9% FLUSH 10 ML IV ×2 (08:46→21:50)
--- NOTE | 2019-02-06 14:00 | PT.IPTN ---
Addendum entered and electronically signed by Gael Lebron, PT 02/06/19 15:34: pt not seen this a.m. due to high PT census and low staffing availability. Original Note: Current Diagnoses Hypertensive emergency (01/31/19) Physical Therapy Treatment Note M2 PT-IP Current Condition Start: 02/01/19 13:53 Freq: NEEDED Status: Active Protocol: Document 02/01/19 15:20 AB (Rec: 02/01/19 17:28 AB [id number]) Physical Therapy Current Condition Current Condition Evaluation Date 02/01/19 Treatment Diagnosis CVA; difficulty in walking Onset Date 01/31/19 Precautions Other Precautions Falls M3 PT-IP Subjective Start: 02/01/19 13:53 Freq: NEEDED Status: Active Protocol: Document 02/06/19 14:00 [facility] (Rec: 02/06/19 15:33 [facility] [id number]) Subjective Physical Therapy Visit Type Type Treatment Note Visit Start Time 14:00 Visit Stop Time 14:30 Total Visit Minutes 30 Number of CERTIFIED ETHICAL HACKER Visits 0 Physical Therapy Visit Comments Patient Comments pt states that he was unable to get up off of ground s/p fall on Thursday without physical assistance. M4 PT-IP Mobility and Gait Start: 02/01/19 13:53 Freq: NEEDED Status: Active Protocol: Document 02/06/19 14:00 [facility] (Rec: 02/06/19 15:33 [facility] [id number]) PT-Bed Mobility Assessment Sit to Supine Sit to Supine Standby Assistance Head of Bed Elevated PT-Transfer Assessment Sit to and From Stand Sit to and from Stand Standby Assistance Use of Upper Extremities Equipment Transfer Assistive Device Gait Belt Front Wheeled Walker Orthotic/Prosthetic Devices or Brace: No Transfers Transfer Destination Bed Transfer Ability Level of Assist Standby Assistance Contact Guard Assistance 1 Person Assistance Use of Upper Extremities Comments Mobility Comments Pt transferred chair to window seat SBA and FWW. Window seat to floor on buttock with red yoga mat and Min a x2. Pt then went from sitting to side-sit L, unable to get to quadruped. Pt then did side- sit to the R and able to get to quadruped with CGA. Quadruped to tall kneeling (B knees), UE on window seat and able to get to standing with CGA. Gait Assessment Gait Gait Assistance Required: Contact Guard Assist Minimum Assistance 1 Person Assist Distance (Feet) 150 Assistive Devices Assistive Device Gait Belt Front Wheeled Walker Orthotic/Prosthetic Devices or Brace: No Gait Deviations General Gait Pattern Decreased Stride Length Decreased Feet Clearance Flexed Trunk Factors Limiting Gait Function Factors Limiting Gait Function Decreased Activity Tolerance Decreased Strength Incoordination Poor Balance M5 PT-IP Objective Assessments Start: 02/01/19 13:53 Freq: NEEDED Status: Active Protocol: Document 02/01/19 15:20 AB (Rec: 02/01/19 17:28 AB [id number]) Orientation Orientation/Cognition Level of Alertness Alert Orientation Name Place Situation Gross Range of Motion Lower Extremity ROM Assessment Within Functional Limits Strength Lower Extremity Strength Assessment Within Functional Limits Muscle Tone Muscle Tone WNL Yes Other Assessments Other Other Assessments pt presents with incoordination and decrease motor planning during mobility and can be impulsive. M6 PT-IP Treatment Start: 02/01/19 13:53 Freq: NEEDED Status: Active Protocol: Document 02/06/19 14:00 [facility] (Rec: 02/06/19 15:33 [facility] [id number]) Physical Therapy Treatment Exercises Exercises Straight Leg Raises Education Education Provided Safety Other Treatments Other Treatment Performed Bridging M7 PT-IP Assessment and Plan Start: 02/01/19 13:53 Freq: NEEDED Status: Active Protocol: Document 02/06/19 14:00 [facility] (Rec: 02/06/19 15:33 [facility] [id number]) PT Summary Assessment and Plan Summary Assessment Summary Pt required assistance to lower to the ground in room onto yoga mat. Upon being on the ground, he was able to transition to side-sit on the R to quadruped, then use UE to stand erect from a kneeling position with LLE forward. Pt does continue to have decreased foot clearance on the L with gait, but no loss of balance this session. Pt would greatly benefit from continued physical therapy and rehabilitation, and would benefit from SNF rehabilitation, but more likely to d/c to car not able to d/c to local SNF and unable to go SNF to car upon d/c from their facility per SW. Goals Bed Mobility Goal Independent Transfer Goal Standby Assistance Front Wheeled Walker Gait Goal Standby Assistance Front Wheel Walker Gait Distance 200 Other Goals up/down 5 steps 1 rail CGA Days to Meet Goals 10 Frequency of Treatment Frequency Of Treatment Twice a Day Treatment Plan Other Recommendations and Next Treatment cont. to progress gait, sit<-> Focus stand, LLE strengthening, standing balance Recommendations To Nursing Amount of Assist Needed 1 Person Assist Discharge Recommendations PT Discharge Recommendations SNF Rehab Acute Rehab
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
[2019-02-06] MEDS: ATORVASTATIN 20 MG TABLET 40 MG PO (21:49)
[2019-02-07 05:00] VITALS: BP 151/75; PULSE 41; RESP 18; TEMP 37.5; O2SAT 97
[2019-02-07 06:03] LABS: Alanine Aminotransferase 27 IU/L (21-72); Albumin 3.9 g/dL (3.5-5.0); Albumin Globulin Ratio 1.3 (1.0-2.8); Alkaline Phosphatase 83 U/L (38-126); Aspartate Aminotransferase 25 IU/L (17-59); BUN Creatinine Ratio 32.7 (6-22); Bilirubin Total 0.8 mg/dL (0.2-1.3); Blood Urea Nitrogen 49 mg/dL (9-20); Calcium 9.6 mg/dL (8.4-10.2); Carbon Dioxide 24 mmol/L (22-32); Chloride 103 mmol/L (98-107); Estimated Glomerular Filt Rate 45.7 mL/min (>60); Glucose 105 mg/dL (80-110); HEMOLYSIS < 15 (0-50); Magnesium 2.2 mg/dL (1.6-2.3); Potassium 3.8 mmol/L (3.4-5.1); Sodium 136 mmol/L (137-145); Total Protein 6.9 g/dL (6.3-8.2)
[2019-02-07 07:50] VITALS: BP 150/76; PULSE 35; RESP 16; TEMP 36.6; O2SAT 97
--- NOTE | 2019-02-07 10:06 | PT.IPTN ---
Current Diagnoses Hypertensive emergency (01/31/19) Physical Therapy Treatment Note M2 PT-IP Current Condition Start: 02/01/19 13:53 Freq: NEEDED Status: Active Protocol: Document 02/01/19 15:20 AB (Rec: 02/01/19 17:28 AB [id number]) Physical Therapy Current Condition Current Condition Evaluation Date 02/01/19 Treatment Diagnosis CVA; difficulty in walking Onset Date 01/31/19 Precautions Other Precautions Falls M3 PT-IP Subjective Start: 02/01/19 13:53 Freq: NEEDED Status: Active Protocol: Document 02/07/19 09:54 EA (Rec: 02/07/19 10:06 EA [id number]) Subjective Physical Therapy Visit Type Type Treatment Note Visit Start Time 08:30 Visit Stop Time 09:00 Total Visit Minutes 30 Number of BEDSPREAD INSPECTOR Visits 1 Physical Therapy Visit Comments Patient Comments Pt agreeable to mobilize; denies dizziness or loss function to both LE's. M4 PT-IP Mobility and Gait Start: 02/01/19 13:53 Freq: NEEDED Status: Active Protocol: Document 02/07/19 09:54 EA (Rec: 02/07/19 10:06 EA [id number]) PT-Bed Mobility Assessment Sit to Supine Sit to Supine Standby Assistance Head of Bed Elevated PT-Transfer Assessment Sit to and From Stand Sit to and from Stand Standby Assistance Use of Upper Extremities Equipment Transfer Assistive Device Gait Belt Front Wheeled Walker Orthotic/Prosthetic Devices or Brace: No Transfers Transfer Destination Bed Chair Toilet Transfer Ability Level of Assist Standby Assistance Contact Guard Assistance Comments Mobility Comments Pt transferred from bed to chair with SBA/CGA. Gait Assessment Gait Gait Assistance Required: Contact Guard Assist Minimum Assistance Distance (Feet) 175 Able to Maintain Weight Bearing Status Yes During Gait Assistive Devices Assistive Device Gait Belt Front Wheeled Walker Orthotic/Prosthetic Devices or Brace: No Gait Deviations General Gait Pattern Decreased Stride Length Decreased Feet Clearance Flexed Trunk Factors Limiting Gait Function Factors Limiting Gait Function Decreased Activity Tolerance Decreased Strength Incoordination Poor Balance Comments Gait Comments Pt ambulates with CGA/SBA with ++ VC's to improve left foot clearance. M5 PT-IP Objective Assessments Start: 02/01/19 13:53 Freq: NEEDED Status: Active Protocol: Document 02/01/19 15:20 AB (Rec: 02/01/19 17:28 AB [id number]) Orientation Orientation/Cognition Level of Alertness Alert Orientation Name Place Situation Gross Range of Motion Lower Extremity ROM Assessment Within Functional Limits Strength Lower Extremity Strength Assessment Within Functional Limits Muscle Tone Muscle Tone WNL Yes Other Assessments Other Other Assessments pt presents with incoordination and decrease motor planning during mobility and can be impulsive. M6 PT-IP Treatment Start: 02/01/19 13:53 Freq: NEEDED Status: Active Protocol: Document 02/07/19 09:54 EA (Rec: 02/07/19 10:06 EA [id number]) Physical Therapy Treatment Education Education Provided Safety Other Treatments Other Treatment Performed Single arm support high marching, Sit to stand, NBOS EO/EC standing balance. M7 PT-IP Assessment and Plan Start: 02/01/19 13:53 Freq: NEEDED Status: Active Protocol: Document 02/07/19 09:54 EA (Rec: 02/07/19 10:06 EA [id number]) PT Summary Assessment and Plan Potential Rehabilitation Potential Good Summary Impairments Strength Balance Transfers Gait Activity Tolerance Assessment Summary Pt required constant cues during ambulation as left foot dropped is evident with increasing distance. Goals Bed Mobility Goal Independent Transfer Goal Standby Assistance Gait Goal Standby Assistance Gait Distance 175 Other Goals up/down 5 steps 1 rail CGA Days to Meet Goals 8 Frequency of Treatment Frequency Of Treatment Twice a Day Treatment Plan Other Recommendations and Next Treatment cont. to progress gait, sit<-> Focus stand, LLE strengthening, standing balance Recommendations To Nursing Amount of Assist Needed 1 Person Assist Discharge Recommendations PT Discharge Recommendations SNF Rehab Acute Rehab
[2019-02-07] MEDS: AMLODIPINE 5 MG TABLET 10 MG PO (10:19)
[2019-02-07] MEDS: ASPIRIN EC 81 MG TABLET PO (10:20)
[2019-02-07] MEDS: cloNIDine 0.1 MG TABLET PO (10:20)
[2019-02-07] MEDS: HEPARIN 5,000 UNIT/ML VIAL 5000 UNIT SUBCUT (10:20)
[2019-02-07] MEDS: SODIUM CHLORIDE 0.9% FLUSH 10 ML IV (10:21)
[2019-02-07 10:35] VITALS: PULSE 42; O2SAT 99
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
[2019-02-07 12:06] VITALS: BP 131/69; PULSE 44; RESP 16; TEMP 36.3; O2SAT 98
--- NOTE | 2019-02-07 13:23 | PT.IPTN ---
Current Diagnoses Hypertensive emergency (01/31/19) Physical Therapy Treatment Note M2 PT-IP Current Condition Start: 02/01/19 13:53 Freq: NEEDED Status: Active Protocol: Document 02/01/19 15:20 AB (Rec: 02/01/19 17:28 AB [id number]) Physical Therapy Current Condition Current Condition Evaluation Date 02/01/19 Treatment Diagnosis CVA; difficulty in walking Onset Date 01/31/19 Precautions Other Precautions Falls M3 PT-IP Subjective Start: 02/01/19 13:53 Freq: NEEDED Status: Active Protocol: Document 02/07/19 13:16 RS (Rec: 02/07/19 13:23 RS [id number]) Subjective Physical Therapy Visit Type Type Treatment Note Visit Start Time 12:40 Visit Stop Time 13:16 Total Visit Minutes 36 Physical Therapy Visit Comments Patient Comments Pt is very thankful for the FWW but expresses concern about discharging back to his van. Therapy Pain Assessment Pain When Pain Assessed At Rest Pain Present Pain Present Denied Pain M4 PT-IP Mobility and Gait Start: 02/01/19 13:53 Freq: NEEDED Status: Active Protocol: Document 02/07/19 13:16 RS (Rec: 02/07/19 13:23 RS [id number]) PT-Bed Mobility Assessment Supine to Sit Supine to Sit Standby Assistance Sit to Supine Sit to Supine Standby Assistance Head of Bed Elevated Scooting Scooting to Edge of Bed Standby Assistance PT-Transfer Assessment Sit to and From Stand Sit to and from Stand Standby Assistance Use of Upper Extremities Equipment Transfer Assistive Device Gait Belt Front Wheeled Walker Transfers Transfer Destination Bed Chair Toilet Transfer Ability Level of Assist Standby Assistance Contact Guard Assistance Comments Mobility Comments Pt transferred from bed to chair with SBA/CGA. Gait Assessment Gait Gait Assistance Required: Contact Guard Assist Distance (Feet) 175 Assistive Devices Assistive Device Gait Belt Front Wheeled Walker Gait Deviations General Gait Pattern Decreased Stride Length Decreased Feet Clearance Flexed Trunk Factors Limiting Gait Function Factors Limiting Gait Function Decreased Activity Tolerance Decreased Strength Incoordination Poor Balance Comments Gait Comments PT continues to require up to CGA and cues for safety with L foot clearance. Stair Climbing Assessment Comments Stair Climbing Comments not tested PT-Balance Assessment Sitting Balance and Reactions Static Sitting Balance Ability Good Dynamic Sitting Balance Ability Good Standing Balance and Reactions Static Standing Balance Ability Fair Dynamic Standing Balance Ability Fair Device Used FWW M5 PT-IP Objective Assessments Start: 02/01/19 13:53 Freq: NEEDED Status: Active Protocol: Document 02/01/19 15:20 AB (Rec: 02/01/19 17:28 AB [id number]) Orientation Orientation/Cognition Level of Alertness Alert Orientation Name Place Situation Gross Range of Motion Lower Extremity ROM Assessment Within Functional Limits Strength Lower Extremity Strength Assessment Within Functional Limits Muscle Tone Muscle Tone WNL Yes Other Assessments Other Other Assessments pt presents with incoordination and decrease motor planning during mobility and can be impulsive. M6 PT-IP Treatment Start: 02/01/19 13:53 Freq: NEEDED Status: Active Protocol: Document 02/07/19 09:54 EA (Rec: 02/07/19 10:06 EA [id number]) Physical Therapy Treatment Education Education Provided Safety Other Treatments Other Treatment Performed Single arm support high marching, Sit to stand, NBOS EO/EC standing balance. M7 PT-IP Assessment and Plan Start: 02/01/19 13:53 Freq: NEEDED Status: Active Protocol: Document 02/07/19 13:16 RS (Rec: 02/07/19 13:23 RS [id number]) PT Summary Assessment and Plan Potential Rehabilitation Potential Good Status of Condition at Evaluation Stable Summary Impairments Strength Balance Transfers Gait Activity Tolerance Progress Towards Goals Progressing Toward Goals Slow Progress - Other Assessment Summary Pt still not safe to be up mobilizing without assist. Pt is slowly improving but remains a high fall risk. Pt would GREATLY benefit from subcaute therapy follow-up prior to discharging back to his car. If this is not possible pt will require at least intermittent assist for mobility and OPPT (pt qualifies for HHPT but unlikely to get it d/t being homeless). Goals Bed Mobility Goal Independent Transfer Goal Standby Assistance Gait Goal Standby Assistance Gait Distance 175 Other Goals up/down 5 steps 1 rail CGA Days to Meet Goals 8 Frequency of Treatment Frequency Of Treatment Twice a Day Treatment Plan Physical Therapy Treatment Plan Bed Mobility Training Transfer Training Gait Training Therapeutic Exercise Balance Retraining Discharge Planning Hot or Cold Pack Neuromuscular Re-ed Coordination Retraining Manual Therapy Other Recommendations and Next Treatment cont. to progress gait, sit<-> Focus stand, LLE strengthening, standing balance Recommendations To Nursing Amount of Assist Needed 1 Person Assist Discharge Recommendations PT Discharge Recommendations SNF Rehab Acute Rehab Other Discharge Recommendations if not going to rehab, needs HHPT vs OPPT Equipment Needed for Home Before FWW provided to patient Discharge through [facility]
--- NOTE | 2019-02-07 14:18 | CM.DPC ---
DCP/continued: Reviewed chart. Spoke with Dr. Castillo in AM rounds and therapy. All feel that patient is safe to discharge to his previous living situation which is his car. ELECTROMECHANISMS DESIGN DRAFTER's have made several attempts to speak with patient about alternative living options i.e. custodial. Patient continues to decline resources and is adamant that this ELECTROMECHANISMS DESIGN DRAFTER call [facility] about apartment. ELECTROMECHANISMS DESIGN DRAFTER and SYSTEMS ADMINISTRATION ANALYST called [facility] and left voicemails. Per message, they are in till 1:30pm daily during the week but unable to reach. Both calls placed before 1:30pm. Met with patient and made him aware of the above. Patient continues to be resistant to helping himself locate housing. Provided patient with custodial information and patient reports that he is not interested. Patient reports that he is unsure where he will go. Notified patient that we have attempted to assist but his resistance to wanting to help himself has been a barrier. Patient reports that he will have to go back and stay in his car. Notified patient that this is not a change from where he came from and numerous resources, PCP appointment, and prescriptions filled prior to discharge. Patient appears somewhat upset that he is being discharged to his car. Patient made aware of the attempts made to reach [facility]. In addition, patient will leave with his scripts, PCP appointment at [facility] on Thursday February 07, 2019 and resources. Patient encouraged to follow up with [facility] and consider custodial. P: RN updated. Patient to discharge to previous living conditions today. Patient has been provided with community resources and refuses custodial assistance at this time. OWEN Coffey
--- NOTE | 2019-02-07 15:33 | PC.NURSE ---
Discharge: IV dc'd intact. Reviewed all discharge info with patient thoroughly. Given follow up info, urged to take all d/c papers with him to his appt so they can address all of the concerns that Dr Castillo wanted them to. Also, instructed to ask if there is anyone at [facility] who could take him on as a PCP? All 4 scripts filled and given to patient prior to discharge. Given all of the education paperwork that Dr Castillo added to his discharge. Instructed to come back to hospital/call 911 with any new concerning symptoms. Patient verbalized understanding and stated no further questions. Wheeled out to private vehicle by nursing staff. All belongings sent with patient including cellphone, computer, chargers, wallet and all other contents from safe, clothing, shoes, etc.
== END 2019-02-07 15:37 | disposition home or self-care (01) | DRG 304 ==
LOC: ED 11:16 → AC 11:39 → ICU 12:10 → AC 02-01 16:48
PROVIDERS: Internal Medicine; Admitting Provider Internal Medicine; Emergency Provider Emergency Medicine; Visit Provider Internal Medicine
DX: I16.1 Hypertensive emergency (principal); I63.9 Cerebral infarction, unspecified; I69.954 Hemiplegia and hemiparesis following unspecified cerebrovascular disease affecting left non-dominant side; I48.92 Unspecified atrial flutter; N17.9 Acute kidney failure, unspecified; I12.9 Hypertensive chronic kidney disease with stage 1 through stage 4 chronic kidney disease, or unspecified chronic kidney disease; N18.2 Chronic kidney disease, stage 2 (mild); R26.0 Ataxic gait; R29.704 NIHSS score 4; Z87.820 Personal history of traumatic brain injury; Z87.891 Personal history of nicotine dependence
CPT/HCPCS: 36415; 36591; 70450; 70496; 70498; 70548; 70553; 80048; 80053; 80061; 80305; 81001; 82088; 82550; 82553; 82570; 82962; 83036; 83735; 83835; 84244; 84484; 85025; 85610; 85730; 87797; 93005; 93306; 96365; 96366; 96375; 97110; 97112; 97116; 97127; 97162; 97166; 97530; 97535; 99285; 99291; 99292; A9579; J1644; Q9967

== ENCOUNTER → 2019-04-18 12:31 | Outpatient (CLI) | payer MEDICARE, MEDICAID, SELFPAY ==
[2019-01-31 14:29] VITALS: BMI 30.6
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
== END ==
PROVIDERS: PCP Student in an Organized Health Care Education/Training Program; Visit Provider Student in an Organized Health Care Education/Training Program
DX: R07.81 Pleurodynia (principal); S22.31XA Fracture of one rib, right side, initial encounter for closed fracture; W18.09XA Striking against other object with subsequent fall, initial encounter
CPT/HCPCS: 71101

== ENCOUNTER → 2019-05-01 13:16 | Outpatient (CLI) | payer MEDICARE, MEDICAID, SELFPAY ==
[2019-01-31 14:29] VITALS: BMI 30.6
[2019-05-01 13:45] LABS: BUN Creatinine Ratio 19.3 (6-22); Blood Urea Nitrogen 27 mg/dL (9-20); Calcium 9.9 mg/dL (8.4-10.2); Carbon Dioxide 32 mmol/L (22-32); Chloride 102 mmol/L (98-107); Estimated Glomerular Filt Rate 49.5 mL/min (>60); Glucose 130 mg/dL (80-110); HEMOLYSIS < 15 (0-50); Potassium 3.9 mmol/L (3.4-5.1); Sodium 140 mmol/L (137-145)
== END ==
PROVIDERS: PCP Student in an Organized Health Care Education/Training Program; Visit Provider Student in an Organized Health Care Education/Training Program
DX: R60.9 Edema, unspecified (principal)
CPT/HCPCS: 36415; 80048

== ENCOUNTER → 2019-05-10 16:37 | Outpatient (ROUT) | payer MEDICARE, OTHER, MEDICAID, SELFPAY ==
[2019-01-31 14:29] VITALS: BMI 30.6
[2019-05-10 17:05] LABS: Blood Urea Nitrogen 24 mg/dL (9-20); Carbon Dioxide 30 mmol/L (22-32); Chloride 100 mmol/L (98-107); Estimated Glomerular Filt Rate 45.7 mL/min (>60); Glucose 120 mg/dL (80-110); HEMOLYSIS 16 (0-50); Potassium 3.4 mmol/L (3.4-5.1); Sodium 142 mmol/L (137-145)
== END ==
PROVIDERS: PCP Student in an Organized Health Care Education/Training Program; Visit Provider Student in an Organized Health Care Education/Training Program
DX: R60.9 Edema, unspecified (principal); N18.2 Chronic kidney disease, stage 2 (mild)
CPT/HCPCS: 36415; 80048

== ENCOUNTER → 2019-11-14 15:41 | Outpatient (ROUT) | payer MEDICARE, MEDICAID, SELFPAY ==
[2019-01-31 14:29] VITALS: BMI 30.6
[2019-11-14 16:26] LABS: Add Manual Diff / Slide Review NO; Basophils Absolute Auto 100 /uL (0-100); Basophils Percent Auto 1.1 % (0-2); Eosinophils Absolute Auto 100 /uL (0-450); Eosinophils Percent Auto 2.1 % (2-4); Hematocrit 43.8 % (41-53); Lymphocytes Absolute Auto 900 /uL (1100-4500); Lymphocytes Percent Auto 13.7 % (25-40); Mean Corpuscular HGB Conc 34.3 % (30-36); Mean Corpuscular Volume 90.4 fL (80-100); Monocytes Absolute Auto 400 /uL (0-900); Monocytes Percent Auto 5.8 % (3-14); Neutrophils Absolute Auto 5200 /uL (1500-7000); Neutrophils Percent Auto 77.3 % (50-75); Platelet Count 131 X10^3/uL (150-400); Red Blood Cell Count 4.84 X10^6/uL (4.5-5.9); Red Cell Distribution Width 13.2 % (11.6-14.8); White Blood Cell Count 6.8 X10^3/uL (4.5-11.0)
[2019-11-14 16:51] LABS: Alanine Aminotransferase 24 IU/L (<50); Albumin 4.3 g/dL (3.5-5.0); Albumin Globulin Ratio 1.4 (1.0-2.8); Alkaline Phosphatase 89 U/L (38-126); Aspartate Aminotransferase 30 IU/L (17-59); BUN Creatinine Ratio 18.5 (6-22); Blood Urea Nitrogen 24 mg/dL (9-20); Calcium 10.3 mg/dL (8.4-10.2); Carbon Dioxide 27 mmol/L (22-32); Chloride 107 mmol/L (98-107); Cholesterol 105 mg/dL (140-199); Glucose 107 mg/dL (80-110); HDL Cholesterol 49 mg/dL (40-60); HEMOLYSIS < 15 (0-50); LDL Cholesterol Calculated 32 mg/dL (<100); Potassium 4.2 mmol/L (3.4-5.1); Sodium 143 mmol/L (137-145); Total Protein 7.3 g/dL (6.3-8.2); Triglycerides 120 mg/dL (35-150)
== END ==
PROVIDERS: PCP Student in an Organized Health Care Education/Training Program; Visit Provider Student in an Organized Health Care Education/Training Program
DX: N18.2 Chronic kidney disease, stage 2 (mild) (principal); I48.0 Paroxysmal atrial fibrillation; I10 Essential (primary) hypertension
CPT/HCPCS: 80053; 80061; 85025

== ENCOUNTER 2020-04-21 16:02 | Emergency (ER) | payer MEDICARE, MEDICAID, SELFPAY ==
[2019-01-31 14:29] VITALS: BMI 30.6
[2020-04-21] VITALS (29 sets, daily range): BP systolic 168–224; BP diastolic 75–95; PULSE 36–85; RESP 11–51; TEMP 36.7; O2SAT 93–100; BMI 32.2
--- NOTE | 2020-04-21 16:32 | DI.CT.S_ITS ---
PROCEDURE: CT HEAD/BRAIN WO CON INDICATIONS: confusion hx of cva on eliquis TECHNIQUE: Noncontrast 4.5 mm thick angled axial sections acquired from the foramen magnum to the vertex, with coronal and sagittal reformats. For radiation dose reduction, the following was used: automated exposure control, adjustment of mA and/or kV according to patient size. COMPARISON: [facility], MR, MR STROKE, 01/31/2019, 15:44. [facility], CT, CT ANGIO HEAD AND NECK, 01/31/2019, 9:16. [facility], CT, CT HEAD/BRAIN WO CON, 01/31/2019, 8:45. FINDINGS: Image quality: Excellent. CSF spaces: Basal cisterns are patent. No extra-axial fluid collections. The ventricles are symmetric in size and shape. Brain: No intracranial bleeds or masses. There is cerebral volume loss for age, with resultant ventricular and sulcal prominence. There are periventricular and deep white matter chronic small vessel ischemic changes. Small deep white matter infarctions can be seen on the right. There is intracranial internal carotid artery atherosclerosis. Skull and face: Calvarium and visualized facial bones appear intact, without suspicious lesions. Sinuses: Visualized sinuses and mastoids are clear. IMPRESSION: No acute intracranial hemorrhage is seen. Small deep white matter infarctions can be seen on the right. Note is made of age-appropriate brain parenchymal volume loss and chronic small vessel ischemic changes. Dictated by: Ganesh Paige M.D. on 04/21/2020 at 16:11 Approved by: Ganesh Paige M.D. on 04/21/2020 at 16:12
--- NOTE | 2020-04-21 16:34 | PC.NURSE ---
patient came into the ED stating that he has had strokes in the passed. His last one was in January of last year. He stated that yesterday evening he thinks he may have had another one do to his head feeling fuzzy. His left arm and leg are weakened from his stroke in late 2018.
[2020-04-21 16:42] LABS: Add Manual Diff / Slide Review NO; Basophils Absolute Auto 100 /uL (0-100); Basophils Percent Auto 1.1 % (0-2); Eosinophils Absolute Auto 100 /uL (0-450); Eosinophils Percent Auto 2.1 % (2-4); Hematocrit 44.8 % (41-53); Hemoglobin 15.4 g/dL (13.5-17.5); Lymphocytes Absolute Auto 1200 /uL (1100-4500); Lymphocytes Percent Auto 19.6 % (25-40); Mean Corpuscular HGB Conc 34.4 % (30-36); Mean Corpuscular Hemoglobin 30.8 PG (26-34); Mean Corpuscular Volume 89.4 fL (80-100); Monocytes Absolute Auto 500 /uL (0-900); Monocytes Percent Auto 7.5 % (3-14); Neutrophils Absolute Auto 4400 /uL (1500-7000); Neutrophils Percent Auto 69.7 % (50-75); Platelet Count 125 X10^3/uL (150-400); Red Cell Distribution Width 13.2 % (11.6-14.8); White Blood Cell Count 6.3 X10^3/uL (4.5-11.0)
[2020-04-21] MEDS: SODIUM CHLORIDE 0.9% 1,000 ML 150 ML IV (16:42)
[2020-04-21 16:44] LABS: INR 1.2 (0.9-1.3); Prothrombin Time 13.7 SECONDS (10.1-12.7)
[2020-04-21 16:46] LABS: PTT Partial Thromboplastin Tim 34 SECONDS (26.4-36.2)
[2020-04-21] MEDS: ATROPINE 1 MG/10 ML SYRINGE 0.5 MG IV ×2 (16:47→18:07)
[2020-04-21 16:48] LABS: Alanine Aminotransferase 31 IU/L (<50); Albumin 4.5 g/dL (3.5-5.0); Albumin Globulin Ratio 1.4 (1.0-2.8); Alkaline Phosphatase 145 U/L (38-126); Aspartate Aminotransferase 35 IU/L (17-59); BUN Creatinine Ratio 11.7 (6-22); Bilirubin Total 1.6 mg/dL (0.2-1.3); Blood Urea Nitrogen 14 mg/dL (9-20); Calcium 10.2 mg/dL (8.4-10.2); Carbon Dioxide 26 mmol/L (22-32); Chloride 105 mmol/L (98-107); Creatine Kinase 113 U/L (55-170); Globulin 3.2 g/dL (1.7-4.1); Glucose 110 mg/dL (80-110); HEMOLYSIS < 15 (0-50); Potassium 3.8 mmol/L (3.4-5.1); Sodium 138 mmol/L (137-145); Total Protein 7.7 g/dL (6.3-8.2)
[2020-04-21 17:00] LABS: Troponin I < 0.012 ng/mL (0.01-0.034)
[2020-04-21 17:03] LABS: CKMB % Relative Index 3.1 % (1.5-5.0); Creatine Kinase MB 3.53 ng/mL (<2.37)
--- NOTE | 2020-04-21 17:03 | ED_ITS ---
HPI - Neuro Symptoms/Deficit General Chief Complaint: Neuro Symptoms/Deficit Stated Complaint: Thinks Possible Stroke Time Seen by Provider: 04/21/20 16:12 Source: patient Mode of arrival: Ambulatory Limitations: no limitations History of Present Illness HPI Narrative: Patient is a 74-year-old male with history of atrial fibrillation on Eliquis and CVA with left-sided weakness presenting with head fogginess. He actually states that started yesterday afternoon around 3:00 p.m. when he does stand feel quite right. He denies any focal deficits no worsening left-sided weakness numbness tingling. He says whenever he stood up he felt extremely dizzy lightheaded needing to steady himself with a wall. He has not passed out he has not hit his head. He is noted to be bradycardic with a heart rate in the 30s. He denies any chest pain heart palpitations or shortness of breath. He has not had any fever. He does appear to be a little diaphoretic as well. He states he takes clonidine for his blood pressure however he has not taken last evening's dose and only took this morning's dose about an hour ago he is noted to be quite hypertensive as well Onset (ago): hour(s) (24) On Anticoagulants: Yes Related Data Previous Rx's Medication Instructions Recorded amlodipine [Norvasc] 10 mg PO DAILY #30 tab 02/07/19 aspirin 81 mg PO DAILY #30 tab 02/07/19 atorvastatin [Lipitor] 40 mg PO BEDTIME #30 tab 02/07/19 clonidine HCl 0.1 mg PO BID #30 tab 02/07/19 Allergies Allergy/AdvReac Type Severity Reaction Status Date / Time No Known Drug Allergies Allergy Verified 04/21/20 16:33 Review of Systems Review of Systems ROS Unobtainable: All systems reviewed & are unremarkable except as noted in HPI and below Constitutional Constitutional: Denies chills, Denies fever(s), Denies lethargy and Denies weakness Eyes Eyes: Denies change in vision, Denies eye discharge, Denies irritation and Denies loss of vision Cardiovascular Cardiovascular: Reports as per HPI, Denies dyspnea and Denies dyspnea on exertion Respiratory Respiratory: Denies cough, Denies dyspnea, Denies dyspnea on exertion and Denies wheezing Gastrointestinal Gastrointestinal: Denies abdominal pain, Denies change in bowel habits, Denies diarrhea, Denies nausea and Denies vomiting Musculoskeletal Musculoskeletal: Denies back pain, Denies myalgias and Denies muscle cramps Integumentary/Breasts Skin/Breast: Denies pruritus, Denies erythema, Denies rash and Denies wounds Neurologic Neurologic: Denies loss of vision and Denies weakness Allergic/Immunologic Allergic/Immunologic: Denies wheezing Patient History Medical History (Updated 04/21/20 @ 17:54 by Kaila Alegre DO) Chronic kidney disease (Acute) Closed head injury (Acute) CVA (cerebral vascular accident) (Acute) Diverticulitis of colon with perforation (Acute) Diverticulosis (Acute) Fistula of gallbladder (Acute) Hypertension (Acute) Paroxysmal atrial fibrillation (Acute) Traumatic brain injury (Acute) Surgical History (Updated 02/01/19 @ 07:31 by Ludy Castillo DO) H/O abdominal surgery (Acute) H/O exploratory laparotomy (Acute) H/O ileostomy (Acute) History of hemicolectomy (Acute) Hx of appendectomy (Acute) Hx of cholecystectomy (Acute) Hx of colonoscopy (Acute) Family History Mother Kidney disease Father No problems noted. Sister Kidney disease Kidney cysts Social History household members: none Smoking Status: Former smoker alcohol intake: current Smoking Status: Former smoker alcohol intake frequency: holidays/special occasions only Substance Use Type: does not use Exam Initial Vital Signs Initial Vital Signs: Vital Signs Temperature 98.0 F 04/21/20 16:05 Pulse Rate 37 L 04/21/20 16:05 Respiratory Rate 16 04/21/20 16:05 Blood Pressure 213/93 H 04/21/20 16:05 Pulse Oximetry 98 04/21/20 16:05 GENERAL: Alert well-appearing male mild diaphoresis and in no acute distress. HEENT: Head atraumatic,EOMI, pupils reactive, face symmetric, moist mucous m embranes CARDIOVASCULAR: Regular rate and rhythm without murmurs, rubs or gallops. RESPIRATORY: Breath sounds equal bilaterally, no wheezes rales or rhonchi. ABDOMEN: Soft, nontender. Normoactive bowel sounds all 4 quadrants. No guarding or rebound. : No CVA tenderness EXTREMITIES: Normal range of motion, no clubbing. Bilateral lower extremity edema. Neurovascularly intact NEUROLOGICAL: Alert and oriented x4.Normal gait and speech. Cranial nerves II through XII grossly intact. Left side weakness at baseline SKIN: Warm, dry, no laceration, no petechiae, no rashes or lesions. Course Orders Ordered: ED Orders 04/21/20 16:25 Complete Blood Count AUTO DIFF Stat Comprehensive Metabolic Panel Stat Partial Thromboplastin Time Stat Prothrombin Time INR Stat Troponin & CK Cardiac Panel Stat 04/21/20 16:32 CT head/brain wo con Stat 04/21/20 16:33 EKG-12 Lead Stat 04/21/20 18:09 XR chest 1V Stat Sodium Chloride (Normal Saline 0.9%) 1,000 mls @ 150 mls/hr IV CONT JUSTA Last Admin: 04/21/20 16:42 Dose: 150 mls/hr Documented by: TALI Discontinued Medications Atropine Sulfate (Atropine) 0.5 mg IV NOW ONE Stop: 04/21/20 16:38 Last Admin: 04/21/20 16:47 Dose: 0.5 mg Documented by: TALI Atropine Sulfate (Atropine) 0.5 mg IV NOW ONE Stop: 04/21/20 18:06 Last Admin: 04/21/20 18:07 Dose: 0.5 mg Documented by: TALI Consultations Consultation #1: Dr. Galloway, recommends transferring to [facility] he may require pacemaker Time: 17:35 Consultation #2: Dr. Pillai, cardiology at [facility] unfortunate ly seed laboratory assistant Dr. Schuster is out of town next week is and if he does require pacemaker they were unable to put 1 in Time: 17:42 Consultation #3: Dr. Muñiz cardiology at [place] updated on patient's symptoms test results agrees patient should be transferred and admitted to hospitalist service Dr. Henderson, hospitalist accepts patient for transfer Vital Signs Vital signs: Vital Signs - 8 hr 04/21/20 16:05 04/21/20 16:13 04/21/20 16:17 Temperature 98.0 F Pulse Rate 37 L 48 L 43 L Respiratory Rate 16 18 20 Blood Pressure 213/93 H 213/93 H Pulse Oximetry 98 96 98 04/21/20 16:30 04/21/20 16:32 04/21/20 16:46 Temperature Pulse Rate 45 L 38 L 36 L Respiratory Rate 17 18 12 Blood Pressure 198/86 H 212/85 H Pulse Oximetry 98 99 98 04/21/20 17:10 04/21/20 17:26 04/21/20 17:30 Temperature Pulse Rate 52 L 45 L 40 L Respiratory Rate 12 12 Blood Pressure 212/84 H Pulse Oximetry 93 97 98 04/21/20 17:31 04/21/20 17:45 04/21/20 18:00 Temperature Pulse Rate 41 L 40 L 44 L Respiratory Rate 13 12 11 L Blood Pressure 168/75 H 177/79 H Pulse Oximetry 98 97 98 04/21/20 18:01 Temperature Pulse Rate 41 L Respiratory Rate 19 Blood Pressure 185/88 H Pulse Oximetry 96 MDM - Neuro Symptoms/Deficit Lab Data Attestation: I reviewed the patient's lab results. Result diagrams: 04/21/20 16:25 04/21/20 16:25 Labs: Lab Results 04/21/20 04/21/20 04/21/20 Range/Units 16:25 16:25 16:25 WBC 6.3 (4.5-11.0) X10^3/uL RBC 5.00 (4.5-5.9) X10^6/uL Hgb 15.4 (13.5-17.5) g/dL Hct 44.8 (41-53) % MCV 89.4 (80-100) fL MCH 30.8 (26-34) PG MCHC 34.4 (30-36) % RDW 13.2 (11.6-14.8) % Plt Count 125 L (150-400) X10^3/uL Neut % (Auto) 69.7 (50-75) % Lymph % (Auto) 19.6 L (25-40) % [place] % (Auto) 7.5 (3-14) % Eos % (Auto) 2.1 (2-4) % Baso % (Auto) 1.1 (0-2) % Neut # (Auto) 4400 (7823-9929) /uL Lymph # (Auto) 1200 (9892-6972) /uL [place] # (Auto) 500 (0-900) /uL Eos # (Auto) 100 (0-450) /uL Baso # (Auto) 100 (0-100) /uL PT 13.7 H (10.1-12.7) SECONDS INR 1.2 (0.9-1.3) APTT 34 D (26.4-36.2) SECONDS Sodium 138 (137-145) mmol/L Potassium 3.8 (3.4-5.1) mmol/L Chloride 105 (98-107) mmol/L Carbon Dioxide 26 (22-32) mmol/L BUN 14 (9-20) mg/dL Creatinine 1.20 (0.66-1.25) mg/dL Estimated GFR 59.0 L (>60) mL/min BUN/Creatinine Ratio 11.7 (6-22) Glucose 110 (80-110) mg/dL Calcium 10.2 (8.4-10.2) mg/dL Total Bilirubin 1.6 H (0.2-1.3) mg/dL AST 35 (17-59) IU/L ALT 31 (<50) IU/L Alkaline Phosphatase 145 H (38-126) U/L Total Creatine Kinase 113 (55-170) U/L CK-MB (CK-2) 3.53 H (<2.37) ng/mL CK-MB (CK-2) Rel Index 3.1 (1.5-5.0) % Troponin I < 0.012 (0.01-0.034) ng/mL Total Protein 7.7 (6.3-8.2) g/dL Albumin 4.5 (3.5-5.0) g/dL Globulin 3.2 (1.7-4.1) g/dL Albumin/Globulin Ratio 1.4 (1.0-2.8) Point of Care Testing Glucose POC 104 Urine Dip Bedside Urine Glucose Negative Bedside Urine Bilirubin - Negative Bedside Urine Ketone - Negative Urine Specific [place] 1.015 Bedside Urine Occult Blood - Negative Bedside Urine pH 7.0 Bedside Urine Protein + 30 Bedside Urine Urobilinogen - Negative Bedside Urine Nitrite - Negative Bedside Urine Leukocytes - Negative Esterase Imaging Data CT scan - head: Radiologist's Impression: PROCEDURE: CT HEAD/BRAIN WO CON INDICATIONS: confusion hx of cva on eliquis TECHNIQUE: Noncontrast 4.5 mm thick angled axial sections acquired from the foramen magnum to the vertex, with coronal and sagittal reformats. For radiation dose reduction, the following was used: automated exposure control, adjustment of mA and/or kV according to patient size. COMPARISON: [facility], MR, MR STROKE, 01/31/2019, 15:44. [facility], CT, CT ANGIO HEAD AND NECK, 01/31/2019, 9:16. [facility], CT, CT HEAD/BRAIN WO CON, 01/31/2019, 8:45. FINDINGS: Image quality: Excellent. CSF spaces: Basal cisterns are patent. No extra-axial fluid collections. The ventricles are symmetric in size and shape. Brain: No intracranial bleeds or masses. There is cerebral volume loss for age, with resultant ventricular and sulcal prominence. There are periventricular and deep white matter chronic small vessel ischemic changes. Small deep white matter infarctions can be seen on the right. There is intracranial internal carotid artery atherosclerosis. Skull and face: Calvarium and visualized facial bones appear intact, without suspicious lesions. Sinuses: Visualized sinuses and mastoids are clear. IMPRESSION: No acute intracranial hemorrhage is seen. Small deep white matter infarctions can be seen on the right. Note is made of age-appropriate brain parenchymal volume loss and chronic small vessel ischemic changes. Dictated by: Ganesh Paige M.D. on 04/21/2020 at 16:11 Approved by: Ganesh Paige M.D. on 04/21/2020 at 16:12 ECG Data Attestation: I personally reviewed and interpreted this ECG as follows: Prior ECG tracings: available for review Interpretation: Atrial fibrillation rate [address] changes MDM Narrative Medical decision making narrative: Patient persistently heart rate in 30s about 36-38 is although he is alert and awake and seems to be asymptomatic while sitting down he is given 0.5 mg of atropine. His heart rate improves but only temporarily. Clonidine is known to cause bradycardia which may be contributing to this however will likely require pacing. Patient needs to be transferred to another facility where pacemaker is available. Unfortunately [facility] seed laboratory assistant is not available. Patient being transferred to [facility]. Critical Care Time Critical Care Time Critical Care Time: Yes Total Critical Care Time: 30 Attestation: The high probability of a clinically significant, sudden or life threatening deterioration of the [cardiovascular] system(s) required my full and direct attention, intervention and personal management. The aggregate critical care time was 30 minutes. This time is in addition to time spent performing reported procedures but includes the following: [x] Data Review and interpretation [x] Patient assessment and monitoring of vital signs [x] Documentation [x] Medication orders and management Discharge Plan Departure Patient Disposition: [facility] Clinical Impression: Symptomatic bradycardia Atrial fibrillation Qualifiers: Atrial fibrillation type: longstanding persistent Qualified Code(s): I48.11 - Longstanding persistent atrial fibrillation Prescriptions: No Action clonidine HCl 0.1 mg Tablet 0.1 mg PO BID Qty: 30 RF: 0 atorvastatin [Lipitor] 20 mg Tablet 40 mg PO BEDTIME Qty: 30 RF: 0 amlodipine [Norvasc] 5 mg Tablet 10 mg PO DAILY Qty: 30 RF: 0 aspirin 81 mg Tablet,Delayed Release (Dr/Ec) 81 mg PO DAILY Qty: 30 RF: 0 Referrals: Bobbi Juarez PA-C [Primary Care Provider] -
--- NOTE | 2020-04-21 17:16 | PC.NURSE ---
Patient has a large defect in his right inguinal area. Patient is not complaining of pain. Bowel habits have not changed. Patient has bowel tones in all for quadrants and present over the large pouch in his right inguinal area.
--- NOTE | 2020-04-21 18:09 | DI.RAD.S_ITS ---
PROCEDURE: XR CHEST 1V INDICATIONS: chest pain TECHNIQUE: One view of the chest was acquired. COMPARISON: [facility], CR, CHEST 1 VIEW, 05/20/2017, 9:24. [facility], CR, XR CHEST 1 VIEW, 01/30/2018, 10:06. FINDINGS: Surgical changes and devices: None. Lungs and pleura: Lungs are clear. No pleural effusions or pneumothorax. Mediastinum: Mediastinal contours appear normal. Heart size is markedly enlarged, slightly increased from the study dated January 30, 2018. Bones and chest wall: No suspicious bony lesions. Overlying soft tissues appear unremarkable. IMPRESSION: Marked cardiomegaly increased from prior studies. Differential considerations include pericardial effusion. If further characterization is warranted, a cardiac echo recommended. Dictated by: Margarita Solis M.D. on 04/21/2020 at 18:28 Approved by: Margarita Solis M.D. on 04/21/2020 at 18:29
--- NOTE | 2020-04-21 18:54 | PC.NURSE ---
Patient states that he had a stroke in january and recalls being told in January that he had a stroke recently before that. The first stroke left him with left sided weakness in his arm and leg. His left arm cannot be raised passed 45 degrees from the bed without support but does not show any drift upon NIH exam.
[2020-04-21 19:39] LABS: COVID19 -Nasal RAPID Negative (Negative)
== END 2020-04-21 21:15 | disposition short-term general hospital (02) ==
PROVIDERS: Emergency Provider Emergency Medicine; PCP Student in an Organized Health Care Education/Training Program
DX: R00.1 Bradycardia, unspecified (principal); I48.11 Longstanding persistent atrial fibrillation; Z79.01 Long term (current) use of anticoagulants; I10 Essential (primary) hypertension
CPT/HCPCS: 36415; 70450; 71045; 80053; 81003; 82550; 82553; 82962; 84484; 85025; 85610; 85730; 87635; 93005; 96361; 96374; 96375; 99285; 99291; J0461

== ENCOUNTER → 2020-10-08 11:50 | Outpatient (CLI) | payer MEDICARE, MEDICAID, SELFPAY ==
[2019-01-31 14:29] VITALS: BMI 30.6
--- NOTE | 2020-10-08 | DI.US.S_ITS ---
PROCEDURE: US PERIPH VENOUS UP EXTREM LT INDICATIONS: LEFT ARM SWELLING TECHNIQUE: Real-time imaging, as well as color and pulse Doppler interrogation, was performed of the left upper extremity deep veins from the inferior neck to the antecubital fossa. COMPARISON: None. FINDINGS: The left axillary vein demonstrates spectral Doppler signal with incomplete filling on color flow images and noncompressibility, which may be related to deep location of the vein. The internal jugular vein, visualized portions of the subclavian vein, and brachial veins are free of intraluminal thrombus. Where physically possible, the veins are normally compressible. Color and pulse Doppler demonstrate normal intraluminal flow, with expected phasicity and pulsatility. Additional scanning of the cephalic and basilic veins of the superficial system demonstrate normal compressibility, without thrombus. IMPRESSION: 1. Noncompressibility and incomplete filling of the left axillary vein on color flow imaging is most likely related to the deep location of the axillary vein. Spectral Doppler demonstrates some venous flow. However, findings are equivocal and partial deep venous thrombosis in this location is not entirely excluded. Recommend correlation with clinical findings and possible follow-up ultrasound versus CT venogram for further evaluation. 2. The deep venous system of the left upper extremity is otherwise patent. Dictated by: Hill Miramontes M.D. on 10/08/2020 at 13:03 Approved by: Hill Miramontes M.D. on 10/08/2020 at 13:17
[2020-10-08 15:30] LABS: BUN Creatinine Ratio 18.1 (6-22); Blood Urea Nitrogen 23 mg/dL (9-20); Calcium 9.6 mg/dL (8.4-10.2); Carbon Dioxide 24 mmol/L (22-32); Chloride 109 mmol/L (98-107); Estimated Glomerular Filt Rate 55.3 mL/min (>60); Glucose 143 mg/dL (80-110); HEMOLYSIS < 15 (0-50); Potassium 4.1 mmol/L (3.4-5.1); Sodium 138 mmol/L (137-145)
== END ==
PROVIDERS: PCP Student in an Organized Health Care Education/Training Program; Referring Provider Student in an Organized Health Care Education/Training Program; Visit Provider Student in an Organized Health Care Education/Training Program
DX: M79.89 Other specified soft tissue disorders (principal)
CPT/HCPCS: 36415; 80048; 93971

== ENCOUNTER → 2020-10-10 09:19 | Outpatient (CLI) | payer MEDICARE, MEDICAID, SELFPAY ==
[2019-01-31 14:29] VITALS: BMI 30.6
--- NOTE | 2020-10-10 | DI.CT.S_ITS ---
PROCEDURE: CT UE LT W CON COMPARISON: [facility], CR, XR CHEST 1V, 04/21/2020, 18:08. [facility], US, US PERIPH VENOUS UP EXTREM LT, 10/08/2020, 12:26. INDICATIONS: Other specified soft tissue disorders FINDINGS: In the left lung demonstrates no focal consolidation, mass, or pneumothorax. Visualized bones of the left chest and left upper extremity are normal. The coronary arteries have atherosclerotic calcifications. There is a fat containing left inguinal hernia. CT venogram was performed. The contrast bolus is primarily in the arteries, however there is no significant thrombus or stenosis in the radial, ulnar, brachial, cephalic, basilic, or axillary veins. A left chest wall pacer lead is seen in the subclavian vein. The subclavian vein appears patent with flow around the pacemaker lead and centrally. IMPRESSION: No significant superficial or deep vein thrombus in the left upper extremity. Dictated by: Omi Patricia M.D. on 10/10/2020 at 14:56 Approved by: Omi Patricia M.D. on 10/10/2020 at 15:08
== END ==
PROVIDERS: PCP Student in an Organized Health Care Education/Training Program; Referring Provider Student in an Organized Health Care Education/Training Program; Visit Provider Student in an Organized Health Care Education/Training Program
DX: M79.89 Other specified soft tissue disorders (principal); I25.10 Atherosclerotic heart disease of native coronary artery without angina pectoris; K40.90 Unilateral inguinal hernia, without obstruction or gangrene, not specified as recurrent
CPT/HCPCS: 73201; Q9967

== ENCOUNTER → 2020-12-13 15:10 | Outpatient (ROUT) | payer MEDICARE, OTHER, SELFPAY ==
[2019-01-31 14:29] VITALS: BMI 30.6
[2020-12-13 15:38] LABS: BUN Creatinine Ratio 16.9 (6-22); Blood Urea Nitrogen 23 mg/dL (9-20); Calcium 9.6 mg/dL (8.4-10.2); Carbon Dioxide 26 mmol/L (22-32); Chloride 107 mmol/L (98-107); Estimated Glomerular Filt Rate 50.9 mL/min (>60); Glucose 114 mg/dL (80-110); HEMOLYSIS 38 (0-50); Potassium 4.3 mmol/L (3.4-5.1); Sodium 138 mmol/L (137-145)
== END ==
PROVIDERS: PCP Student in an Organized Health Care Education/Training Program; Visit Provider Student in an Organized Health Care Education/Training Program
DX: I10 Essential (primary) hypertension (principal)
CPT/HCPCS: 80048

== ENCOUNTER → 2024-08-30 06:38 | Outpatient (CLI) | payer MEDICARE, SELFPAY ==
[2019-01-31 14:29] VITALS: BMI 30.6
--- NOTE | 2024-08-30 06:41 | DI.US.S_ITS ---
PROCEDURE: US RENAL COMPLETE INDICATIONS: STAGE 2 CHRONIC KIDNEY DISEASE TECHNIQUE: Real-time scanning was performed of the kidneys and bladder, with image documentation. COMPARISON: None. FINDINGS: Kidneys: Kidneys are normal in size. Right kidney measures 10.8 cm long; left kidney measures 11.6 cm long. Right renal cortical thickness is 1.1 cm; left renal cortical thickness is 1.3 cm. Renal cortical echotexture is normal. No hydronephrosis or nephrolithiasis. No suspicious solid mass lesions. There is a small exophytic hypoechoic structure in the superior left kidney measuring 11 x 8 x 7 mm. Possibly a cyst. Too small to definitively characterize. Bladder: Pre-void bladder volume is 94 mL. Post-void residual is 32 mL. Pre-void images demonstrate no intraluminal masses or stones. On pre-void images, no ureteral jets are noted with color Doppler interrogation. (Of note, ureteral jets may not be detectable in up to 25% of cases due to insufficient differences in specific gravity between ureteral and bladder urine). Urinary bladder wall is diffusely thickened and heterogeneous without a focal mass. Miscellaneous: No free pelvic fluid. IMPRESSION: Diffusely thickened nondistended urinary bladder wall. Differential includes a cystitis, neurogenic bladder or chronic bladder outlet obstruction. Dictated by: Abena Segal M.D. on 08/30/2024 at 9:52 Approved by: Abena Segal M.D. on 08/30/2024 at 10:01
== END ==
LOC: US 06:41
PROVIDERS: PCP Family Medicine; Referring Provider Family Medicine; Visit Provider Family Medicine
DX: N18.2 Chronic kidney disease, stage 2 (mild) (principal)
CPT/HCPCS: 76770

== ENCOUNTER 2025-04-05 12:21 | Emergency (ER) | payer MEDICARE, SELFPAY ==
[2019-01-31 14:29] VITALS: BMI 30.6
[2025-04-05] VITALS (10 sets, daily range): BP systolic 141–179; BP diastolic 75–86; PULSE 60–71; RESP 11–20; TEMP 36.8; O2SAT 96–99; BMI 34.3
--- NOTE | 2025-04-05 12:51 | EKG_ITS ---
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
--- NOTE | 2025-04-05 12:51 | DI.CT.S_ITS ---
PROCEDURE: CT HEAD/BRAIN WO CON INDICATIONS: hit head two days ago with fall on thinners TECHNIQUE: Noncontrast 4.5 mm thick angled axial sections acquired from the foramen magnum to the vertex, with coronal and sagittal reformats. For radiation dose reduction, the following was used: automated exposure control, adjustment of mA and/or kV according to patient size. COMPARISON: [facility], CT, CT HEAD/BRAIN WO CON, 04/21/2020, 16:35. FINDINGS: Image quality: Diagnostic. CSF spaces: Basal cisterns are patent. No extra-axial fluid collections. The ventricles are symmetric in size and shape. Brain: No intracranial bleeds or mass effect. There is cerebral volume loss, with resultant ventricular and sulcal prominence. There are periventricular and deep white matter chronic small vessel ischemic changes. There is intracranial internal carotid artery atherosclerosis. Skull and face: Calvarium and visualized facial bones appear intact, without suspicious lesions. Sinuses: Mild left maxillary sinus air-fluid level with underlying mucosal thickening. Other visualized paranasal sinuses and mastoids are clear. IMPRESSION: No acute intracranial pathology. Acute on chronic left maxillary sinusitis. Dictated by: Jareth Cheng M.D. on 04/05/2025 at 14:23 Approved by: Jareth Cheng M.D. on 04/05/2025 at 14:24
--- NOTE | 2025-04-05 12:51 | DI.RAD.S_ITS ---
PROCEDURE: XR CHEST 1V INDICATIONS: Chest Pain TECHNIQUE: One view of the chest was acquired. COMPARISON: [facility], CR, XR CHEST 1V, 04/21/2020, 18:08. FINDINGS: Surgical changes and devices: Left chest wall pacing device lead is in the region of right ventricle. Lungs and pleura: Mild pulmonary vascular congestion is seen. No pleural effusions or pneumothorax. Mediastinum: Mediastinal contours appear normal. Heart size is enlarged. Bones and chest wall: No suspicious bony lesions. Overlying soft tissues appear unremarkable. IMPRESSION: Cardiomegaly and mild congestion. No definite focal infiltrate. No pleural effusion or pneumothorax. Dictated by: Wilfrid Cole M.D. on 04/05/2025 at 14:28 Approved by: Wilfrid Cole M.D. on 04/05/2025 at 14:29
--- NOTE | 2025-04-05 12:52 | DI.RAD.S_ITS ---
PROCEDURE: XR KNEE LT 3V INDICATIONS: fall, left tknee pain TECHNIQUE: 3 views of the knee were acquired. COMPARISON: None. FINDINGS: Bones: No fractures or dislocations. Moderate tricompartmental osteoarthritis is seen more notably in medial femoral tibial compartment. No significant patellar subluxation. No suspicious bony lesions. Soft tissues: Moderate suprapatellar joint effusion is seen. No suspicious soft tissue calcifications. IMPRESSION: No acute left knee fracture or dislocation. Moderate tricompartmental osteoarthritis as above. Moderate suprapatellar joint effusion. Dictated by: Wilfrid Cole M.D. on 04/05/2025 at 14:29 Approved by: Wilfrid Cole M.D. on 04/05/2025 at 14:33
[2025-04-05 13:37] LABS: Add Manual Diff / Slide Review NO; Hematocrit 39.7 % (41-53); Hemoglobin 13.6 g/dL (13.5-17.5); Lymphocytes Absolute Auto 900 /uL (1100-4500); Mean Corpuscular HGB Conc 34.3 % (30-36); Mean Corpuscular Hemoglobin 31.1 PG (26-34); Mean Corpuscular Volume 90.7 fL (80-100); Platelet Count 118 X10^3/uL (150-400)
[2025-04-05 13:42] LABS: Alanine Aminotransferase 18 IU/L (<50); Albumin 4.1 g/dL (3.5-5.0); Albumin Globulin Ratio 1.5 (1.0-2.8); Alkaline Phosphatase 71 U/L (38-126); Blood Urea Nitrogen 21 mg/dL (9-20); Calcium 10.0 mg/dL (8.4-10.2); Carbon Dioxide 22 mmol/L (22-32); Chloride 108 mmol/L (98-107); Creatine Kinase 73 U/L (55-170); Estimated Glomerular Filt Rate 59 mL/min (>60); Globulin 2.8 g/dL (1.7-4.1); Glucose 84 mg/dL (70-99); HEMOLYSIS 32 (0-50); Lipase 120 U/L (23-300); Magnesium 2.0 mg/dL (1.6-2.3); Potassium 4.0 mmol/L (3.4-5.1); Sodium 138 mmol/L (137-145); Total Protein 6.9 g/dL (6.3-8.2)
[2025-04-05 13:53] LABS: INR 1.5 (0.9-1.3); NT-proBNP (BNP-Adult 18+) 1090 pg/mL (<450); Prothrombin Time 16.6 SECONDS (9.4-12.5); Troponin I < 0.012 ng/mL (0.01-0.034)
[2025-04-05 13:55] LABS: PTT Partial Thromboplastin Tim 33 SECONDS (25.1-36.5)
--- NOTE | 2025-04-05 14:53 | ED.FALL ---
HPI - Fall General Chief Complaint: Fall Stated Complaint: couple of weeks have had pain in both knees Time Seen by Provider: 04/05/25 14:17 Source: patient, RN notes reviewed and old records reviewed Mode of arrival: Ambulatory Limitations: no limitations History of Present Illness HPI Narrative: 79-year-old male history of hypertension, dyslipidemia, atrial fibrillation on Eliquis with prior CVA. Patient presents with complaint of lower extremity swelling bilaterally but left greater than right. He states has been going on for 2 or 3 weeks. Noticed it gets better when he elevates his legs worsens during the day. He states he has not had any rashes skin changes or other issues. No pain. No chest pain or shortness of breath. No nausea or vomiting. No other GI or urinary symptoms. No syncope. States yesterday he was leg sort of gave out and he fell to his left knee causing abrasion has has a little bit left knee pain since then but able to ambulate. Also notes that he had a what sounds like a mechanical ground level fall 2 or 3 days ago did hit the back of left side of his head. Patient notes he has been taking his anticoagulant regularly. Notes he was started amlodipine 2 or 3 months ago. He was also on losartan, atorvastatin, carvedilol, furosemide as well as Eliquis. Patient states no other new adjustments to medications. Related Data Home Medications ?Medication ?Instructions ?Recorded ?Confirmed apixaban 5 mg tablet (Eliquis) 5 mg PO DAILY 04/21/20 04/21/20 Previous Rx's ?Medication ?Instructions ?Recorded amlodipine 5 mg tablet (Norvasc) 10 mg (2 x 5 mg) PO DAILY #30 tabs 02/07/19 atorvastatin 20 mg tablet (Lipitor) 40 mg (2 x 20 mg) PO BEDTIME #30 02/07/19 tabs clonidine HCl 0.1 mg tablet 0.1 mg PO BID #30 tabs 02/07/19 Allergies Allergy/AdvReac Type Severity Reaction Status Date / Time No Known Drug Allergies Allergy Verified 04/05/25 12:34 Review of Systems Review of Systems ROS Unobtainable: All systems reviewed & are unremarkable except as noted in HPI and below Patient History Medical History Diverticulitis of colon with perforation Chronic kidney disease Fistula of gallbladder Traumatic brain injury Diverticulosis Paroxysmal atrial fibrillation CVA (cerebral vascular accident) Hypertension Closed head injury Surgical History Hx of appendectomy Hx of cholecystectomy History of hemicolectomy H/O exploratory laparotomy Hx of colonoscopy H/O abdominal surgery H/O ileostomy Family History Mother Kidney disease Father No problems noted. Sister Kidney disease Kidney cysts Social History household members: none Smoking Status: Former smoker alcohol intake: current Smoking Status: Former smoker alcohol intake frequency: holidays/special occasions only Exam Narrative Exam Narrative: GENERAL: Alert and oriented x three, male in mild distress HEENT: Head normocephalic, atraumatic, EOMI, pupils reactive, face symmetric, moist mucous membranes NECK: Supple, full range of motion CARDIOVASCULAR: Regular rate and rhythm without murmurs, rubs or gallops. RESPIRATORY: Breath sounds equal bilaterally, no wheezes rales or rhonchi. ABDOMEN: Soft, nontender. Normoactive bowel sounds all 4 quadrants. No guarding or rebound, rigidity, no mass : No CVA tenderness EXTREMITIES: Normal range of motion, no clubbing. Patient has a edema bilateral lower extremities but left greater than right. Nonpitting. Patient has some mild tenderness over his left knee, there isn't abrasion. He was no other bony tenderness. Full range of motion. Cap refills less than 2 seconds bilateral lower extremity. Patient is able to ambulate to the bathroom without issue. NEUROLOGICAL: Cranial nerves II through XII grossly intact. Moving all extremities SKIN: Warm, dry, no petechiae, no rashes or lesions. Initial Vital Signs Initial Vital Signs: Vital Signs Temperature 98.2 F 04/05/25 12:34 Pulse Rate 71 04/05/25 12:34 Respiratory Rate 16 04/05/25 12:34 Blood Pressure 141/75 H 04/05/25 12:34 Pulse Oximetry 99 04/05/25 12:34 Oxygen Delivery Method Room Air 04/05/25 12:34 Course Orders Ordered: ED Orders 04/05/25 12:51 CT head/brain wo con Stat XR chest 1V Stat EKG-12 Lead Stat 04/05/25 12:52 XR knee LT 3V Stat 04/05/25 13:11 Complete Blood Count AUTO DIFF Stat Comprehensive Metabolic Panel Stat Lipase Stat Magnesium Stat NT-proBNP (BNP-Adult 18+) Stat PTT Partial Thromboplastin Xavi Stat Prothrombin Time INR Stat Troponin & CK Cardiac Panel Stat Discontinued Medications Aspirin (Aspirin 81 Mg Chew Tab) 324 mg PO NOW ONE Stop: 04/05/25 12:52 Last Admin: 04/05/25 13:16 Dose: Not Given Documented By: KASIA Vital Signs Vital signs: Vital Signs - 8 hr 04/05/25 12:34 04/05/25 12:59 04/05/25 13:00 Temperature 98.2 F Pulse Rate 71 64 63 Respiratory Rate 16 20 Blood Pressure 141/75 H Pulse Oximetry 99 97 96 Oxygen Delivery Method Room Air 04/05/25 13:01 04/05/25 13:01 04/05/25 13:31 Temperature Pulse Rate 62 62 Respiratory Rate 20 14 Blood Pressure 162/78 H Pulse Oximetry 97 97 Oxygen Delivery Method Room Air 04/05/25 14:00 04/05/25 14:13 04/05/25 14:13 Temperature Pulse Rate 61 62 Respiratory Rate 11 L 15 Blood Pressure 179/81 H Pulse Oximetry 98 99 Oxygen Delivery Method 04/05/25 14:30 04/05/25 14:31 04/05/25 14:31 Temperature Pulse Rate 60 60 Respiratory Rate 15 15 Blood Pressure 158/86 H Pulse Oximetry 97 98 Oxygen Delivery Method 04/05/25 15:00 04/05/25 15:00 Temperature Pulse Rate 60 Respiratory Rate 15 Blood Pressure 165/79 H Pulse Oximetry 99 Oxygen Delivery Method MDM - Fall Lab Data 04/05/25 13:11 04/05/25 13:11 Labs: Lab Results 04/05/25 Range/Units 13:11 WBC 7.7 (4.5-11.0) X10^3/uL RBC 4.38 L (4.5-5.9) X10^6/uL Hgb 13.6 (13.5-17.5) g/dL Hct 39.7 L (41-53) % MCV 90.7 (80-100) fL MCH 31.1 (26-34) PG MCHC 34.3 (30-36) % RDW 12.8 (11.6-14.8) % Plt Count 118 L (150-400) X10^3/uL Neut % (Auto) 76.1 H (50-75) % Lymph % (Auto) 11.5 L (25-40) % Mcminn % (Auto) 9.2 (3-14) % Eos % (Auto) 2.1 (2-4) % Baso % (Auto) 1.1 (0-2) % Neut # (Auto) 5900 (5698-8323) /uL Lymph # (Auto) 900 L (1940-6149) /uL Mcminn # (Auto) 700 (0-900) /uL Eos # (Auto) 200 (0-450) /uL Baso # (Auto) 100 (0-100) /uL PT 16.6 H (9.4-12.5) SECONDS INR 1.5 H (0.9-1.3) APTT 33 (25.1-36.5) SECONDS Sodium 138 (137-145) mmol/L Potassium 4.0 (3.4-5.1) mmol/L Chloride 108 H (98-107) mmol/L Carbon Dioxide 22 (22-32) mmol/L BUN 21 H (9-20) mg/dL Creatinine 1.24 (0.66-1.25) mg/dL Estimated GFR 59 L (>60) mL/min BUN/Creatinine Ratio 16.9 (6-22) Glucose 84 (70-99) mg/dL Calcium 10.0 (8.4-10.2) mg/dL Magnesium 2.0 (1.6-2.3) mg/dL Total Bilirubin 1.4 H (0.2-1.3) mg/dL AST 27 (17-59) IU/L ALT 18 (<50) IU/L Alkaline Phosphatase 71 (38-126) U/L Total Creatine Kinase 73 (55-170) U/L Troponin I < 0.012 (0.01-0.034) ng/mL NT-Pro-B Natriuret Pep 1090 H (<450) pg/mL Total Protein 6.9 (6.3-8.2) g/dL Albumin 4.1 (3.5-5.0) g/dL Globulin 2.8 (1.7-4.1) g/dL Albumin/Globulin Ratio 1.5 (1.0-2.8) Lipase 120 (23-300) U/L ECG Data Attestation: I personally reviewed and interpreted this ECG as follows: Interpretation: Ventricularly paced rhythm rate of 60 DC 198 QRS of 496. Patient was prior from May of 2017 which has a rate of 69 in atrial fibrillation that time. MDM Narrative Medical decision making narrative: EKG shows ventricularly paced rhythm. Labs show normal white count hemoglobin of 13.6, platelets of 118 patient appears to be intermittently thrombocytopenic fairly close to his priors.? INR today is 1.5 patient was on apixaban.? Electrolytes are appropriate except for chloride of 108 BUN 21 creatinine is 1.24 appears consistent with priors slightly improved.? Glucose is 84, bilirubin is 1.4 has been 0.6 and 2020, LFTs are normal troponins less than 0.012 with a BNP of 1090, no priors for comparison.? Head CT shows no acute intracranial pathology acute on chronic left maxillary sinusitis. Chest x-ray shows cardiomegaly mild congestion no definite focal infiltrate.? No pleural effusion or pneumothorax. Left knee x-ray shows no acute left he fracture or dislocation, moderate tricompartmental osteoarthritis as above.? Moderate suprapatellar joint effusion. Patient notes increased swelling left lower extremity greater than right but present bilaterally. After discussion started amlodipine in the last 2 months has noticed a increase in swelling in the left leg for the past 2-3 weeks. I suspect it might be related to his amlodipine. He was regularly anticoagulated my suspicion for blood clot is quite low. No rash skin changes or other infectious changes. He was no other symptoms currently. Does note he injured his knee yesterday but had swelling before this. I had did also have a mechanical fall and hit his head several days ago so had head CT obtained. Imaging shows some suprapatellar joint effusion and osteoarthritis on left knee x-ray cardiomegaly and mild congestion but no acute changes to head CT patient has not elevated BNP although none for comparison but based in his symptoms discussed increasing his diuretic for the short term. This he was finding quite a bit of swelling or that it is problematic with the lower extremity left-sided swelling he can stop his amlodipine and have it switch to a different blood pressure medicine or if he feels it is very mild can continue with it. Discussed patient can review this with his primary care physician to make it final decision. Discharge Plan Departure Patient Disposition: Home Clinical Impression: Lower leg edema, Knee pain, left Activity Restrictions/Additional Instructions: Your left knee x-ray shows moderate suprapatellar joint effusion but no fracture or dislocation. Do have some osteoarthritis as well. If you are knee continues to feel unstable or that it might give out please follow up with primary care orthopedic surgery. You can use a knee brace if needed. Your left lower extremity swelling maybe secondary to your amlodipine, this medications known to cause one-sided extremity swelling has a side effect. If you feel that is mild you do not have to change your medication if you are finding it very problematic talk with your physician and they may stop it and change you to a different blood pressure medication. You have you had some overall increased swelling of both lower extremities I would recommend increasing your diuretic and taking 2 tablets of your furosemide daily for the next 3 days. Please return if you have new or worsening changes, new chest pain or shortness of breath, passing out, rapidly worsening swelling, persistent vomiting or other new or concerning changes. Prescriptions: No Action clonidine HCl 0.1 mg Tablet 0.1 mg PO BID Qty: 30 0RF atorvastatin [Lipitor] 20 mg Tablet 40 mg PO BEDTIME Qty: 30 0RF amlodipine [Norvasc] 5 mg Tablet 10 mg PO DAILY Qty: 30 0RF Eliquis 5 mg tablet 5 mg PO DAILY Patient Comments: TAKE 1 TABLET BY MOUTH TWICE A DAY Referrals: Ryne Manuel MD [Primary Care Provider, Family Practice] Stand Alone Forms: Patient Portal/API
== END 2025-04-05 15:40 | disposition home or self-care (01) ==
PROVIDERS: Emergency Provider Emergency Medicine; PCP Family Medicine
DX: S80.212A Abrasion, left knee, initial encounter (principal); R60.0 Localized edema; W18.30XA Fall on same level, unspecified, initial encounter; Z79.01 Long term (current) use of anticoagulants
CPT/HCPCS: 36415; 70450; 71045; 73562; 80053; 82550; 83690; 83735; 83880; 84484; 85025; 85610; 85730; 93005; 93010; 99284

== ENCOUNTER 2025-09-08 09:12 | Inpatient (IN) | payer SELFPAY ==
[2019-01-31 14:29] VITALS: BMI 30.6
[2025-09-08] VITALS (23 sets, daily range): BP systolic 138–240; BP diastolic 45–166; PULSE 60–70; RESP 14–24; TEMP 35.7–36.6; O2SAT 92–98; BMI 32.2; BMI 30.3
--- NOTE | 2025-09-08 09:23 | EKG_ITS ---
[address] [id number] [address] [address] Test Date: 2025-09-08 Pat Name: Eugene Raymond Department: Room: 210 Gender: Male Floor Assembler: BOLA : 1945 Requested By: Order Number: [id number] Reading MD: Trey Hester Measurements Intervals [place] Rate: 62 P: [place]: QRS: -81 QRSD: 194 T: 85 QT: 502 QTc: 509 Interpretive Statements Ventricular-paced rhythm Electronically Signed On 09-09-2025 13:32:22 PST by Trey Hester
--- NOTE | 2025-09-08 09:36 | DI.RAD.S_ITS ---
PROCEDURE: XR CHEST 1V INDICATIONS: found down TECHNIQUE: One view of the chest was acquired. COMPARISON: [facility], CR, XR CHEST 1V, 04/05/2025, 13:38. FINDINGS: Surgical changes and devices: Pacemaker Lungs and pleura: Lungs are clear. No pleural effusions or pneumothorax. Mediastinum: Mediastinal contours appear normal. Unchanged cardiomegaly.. Bones and chest wall: No suspicious bony lesions. Overlying soft tissues appear unremarkable. IMPRESSION: Unchanged cardiomegaly. No gross infiltrates. Dictated by: Jareth Cheng M.D. on 09/08/2025 at 10:03 Approved by: Jareth Cheng M.D. on 09/08/2025 at 10:03
--- NOTE | 2025-09-08 09:36 | DI.CT.S_ITS ---
PROCEDURE: CT HEAD/BRAIN WO CON INDICATIONS: Found down TECHNIQUE: Noncontrast 4.5 mm thick angled axial sections acquired from the foramen magnum to the vertex, with coronal and sagittal reformats. For radiation dose reduction, the following was used: automated exposure control, adjustment of mA and/or kV according to patient size. COMPARISON: [facility], CT, CT HEAD/BRAIN WO CON, 04/05/2025, 13:28. FINDINGS: Image quality: Diagnostic. CSF spaces: Basal cisterns are patent. No extra-axial fluid collections. The ventricles are symmetric in size and shape. Brain: No intracranial bleeds or mass effect. There is cerebral volume loss, with resultant ventricular and sulcal prominence. There are periventricular and deep white matter chronic small vessel ischemic changes. There is intracranial internal carotid artery atherosclerosis. Skull and face: Calvarium and visualized facial bones appear intact, without suspicious lesions. Sinuses: Visualized sinuses and mastoids are clear. IMPRESSION: No acute intracranial pathology. Dictated by: Lowell Murry M.D. on 09/08/2025 at 10:00 Approved by: Lowell Murry M.D. on 09/08/2025 at 10:01
[2025-09-08 09:53] LABS: Add Manual Diff / Slide Review NO; Hematocrit 44.2 % (41-53); Hemoglobin 15.4 g/dL (13.5-17.5); Lymphocytes Absolute Auto 500 /uL (1100-4500); Mean Corpuscular HGB Conc 34.9 % (30-36); Mean Corpuscular Hemoglobin 30.7 PG (26-34); Mean Corpuscular Volume 87.9 fL (80-100); Platelet Count 168 X10^3/uL (150-400)
[2025-09-08 10:02] LABS: INR 1.2 (0.9-1.3); Prothrombin Time 13.6 SECONDS (9.4-12.5)
[2025-09-08 10:05] LABS: PTT Partial Thromboplastin Tim 26 SECONDS (25.1-36.5)
[2025-09-08 10:07] LABS: Alanine Aminotransferase 62 IU/L (<50); Albumin 3.9 g/dL (3.5-5.0); Albumin Globulin Ratio 1.1 (1.0-2.8); Alkaline Phosphatase 86 U/L (38-126); Blood Urea Nitrogen 29 mg/dL (9-20); Calcium 11.2 mg/dL (8.4-10.2); Carbon Dioxide 28 mmol/L (22-32); Chloride 108 mmol/L (98-107); Creatine Kinase 372 U/L (55-170); Estimated Glomerular Filt Rate > 60 mL/min (>60); Ethanol (ETOH) < 10 mg/dL (<10); Globulin 3.7 g/dL (1.7-4.1); Glucose 138 mg/dL (70-99); Potassium 3.9 mmol/L (3.4-5.1); Sodium 145 mmol/L (137-145); Total Protein 7.6 g/dL (6.3-8.2)
[2025-09-08 10:08] LABS: Lactate (Lactic Acid) 1.8 mmol/L (0.7-2.1)
[2025-09-08 10:12] LABS: HEMOLYSIS 76 (0-50)
--- NOTE | 2025-09-08 10:15 | PC.NURSE ---
This RN informed provider of patient increased blood pressure 226/103. This RN verified patient home medications prior to this conversation and informed provider that patient takes losartan and carvedlol at the doses and rates that were confirmed by this RN. Provider asked this RN to place order for 100mg losartan but not the carvdelol at this time. This RN also informed provider that patient takes Eliquis twice daily and provider also stated to hold that medication for now. Provider asked patient pain level and this RN informed provider patient of recorded pain number and provider gave verbal order for 2mg morphine IV once now.
[2025-09-08 10:19] LABS: Troponin I 0.052 ng/mL (0.01-0.034)
[2025-09-08] MEDS: SODIUM CHLORIDE 0.9% 1,000 ML 999 ML IV (10:27)
[2025-09-08] MEDS: LOSARTAN 50 MG TABLET 100 MG PO ×2 (10:28→15:48)
[2025-09-08] MEDS: MORPHINE 2 MG/ML INJ IV (10:28)
[2025-09-08 10:40] LABS: Base Excess VBG 4.0 mmol/L (0-4); HCO3 VBG 30 mmol/L (24-28); Oxygen Saturation VBG 37 % (70-75); PCO2 VBG 49.7 mmHg (45-50); PO2 VBG 23 mmHg (35-45); Total CO2 VBG 29 mmol/L (24-29); pH VBG 7.39 (7.33-7.43)
[2025-09-08 10:44] LABS: Thyroid Stimulating Hormone 2.31 uIU/mL (0.47-4.68)
--- NOTE | 2025-09-08 11:12 | PC.NURSE ---
Patient came in with clothes and person covered in urine and feces. Patient given bed bath with two aides Filomena and Morris. This RN came in and took pictures of reddened excoriation on patient back, buttock and hips. This RN noted two pressure areas on patient right buttock that are close together. This RN charted on them in patient assessment and loaded wound pictures in separate note. After bed bath this RN placed a small Allevyn foam over pressure area with date. Patient concerned for urinary incontinence and condom cath and leg bag placed.
--- NOTE | 2025-09-08 11:41 | PC.NURSE ---
This RN informed provider of patient consistent elevation in blood pressure despite giving him the ordered Losartan. Provider placed additional IV medication order for administration.
[2025-09-08] MEDS: hydrALAZINE 20 MG/ML VIAL IV (11:44)
[2025-09-08] MEDS: SODIUM CHLORIDE 0.9% 1,000 ML 1000 ML IV (12:25)
--- NOTE | 2025-09-08 12:53 | PC.NURSE ---
This RN set patient up and cut patient chicken per patient request. Patient was successful in being able to swallow food and fluids prior to this RN leaving patient alone with food.
--- NOTE | 2025-09-08 13:12 | PC.NURSE ---
This RN gave verbal report to Darrius Plasencia RN for patient admission. This RN informed new RN that we were still needing urine collection and sent to the lab. Additionally, this RN informed them of recent bladder scan amount that has been documented to unsure close followup to ensure that patient is able to urinate soon. Patient has condom cath and leg bag in place. This RN also informed new RN of patient increased blood pressure this morning and the IV hydrlazine that was administered and to keep close observation of the blood pressure. Also informed of all medications that have been given by this RN and that this RN verified patient home medications. Patient was taken upstairs to flood by fellow DENNYS Fiore.
[2025-09-08 13:19] LABS: Troponin I 0.053 ng/mL (0.01-0.034)
--- NOTE | 2025-09-08 13:42 | CM.IDA ---
Initial DCP Assessment Patient is 79 y/o male who presents to ED via EMS due to welfare check, patient was found down after GLF reported on 09/04/25 in the evening. Patient's PCP is Dr. Manuel. Patient does not show any active insurance, but has recent hx of [facility] Advantage, Medicare part B and Medicaid. When asked about insurance, patient endorses that he has [facility] and Medicaid. Patient has hx of AFib, Essesntial Hypertension, cardiac pacemaker, CKD, Hyperlipidemia, Heart Failure, and bilateral knee osteoarthritis. JAVA WEB ENGINEER enters room to meet with patient, at first patient presented as somnolent and unable to engage in conversation due to fatigue. Upon re-entry into room patient was A/Ox4 and eating a meal. Patient endorses that he slipped and fell on a magazine and was unable to get back up. Patient endorses he relies on his walking stick/cane for ambulation. Patient endorses concern for chronic knee pain since GLF this past summer, patient states he is working with outpatient Orthopedics, patient was just seen by Dr. Diana on 08/25/25. Patient resides alone in an apartment in [place]. Patient endorses that he is independent with ADLs, denies concerns and endorses that he drives his vehicle. Patient has friend in [place] that checks on him several times a day and when patient was not answering his phone, his friend reported concern for welfare check for patient. Patient's listed contact in EMR is his friend Shorty, patient gives consent to reach out to Shorty as patient reports concern for not having his keys, wallet and phone. JAVA WEB ENGINEER discusses concern for no current insurance showing as active, patient is provided information about [email or web address], encouraged to contact [email or web address] and his insurance companies, patient was also provided financial assistance packet by registration staff. JAVA WEB ENGINEER calls patient's friend Shorty with patient's consent, JAVA WEB ENGINEER leaves requesting return call. JAVA WEB ENGINEER calls Adenike at [facility] regarding patient's medicaid insurance and any connection to services and left requesting return call. Patient endorses that he is open to SNF rehab if recommended. Plan: patient admitted as OBS for further evaluation and treatment, pending PT eval, F/u with patient regarding insurance issues and plan of care. Patient would benefit from community agronomy advisor referral if discussed further. Rafia Hyman, [facility] Discharge Planning/Care Management CM Discharge Assessment Start: 09/08/25 13:24 Freq: Status: Active Protocol: Document 09/08/25 13:30 LN (Rec: 09/08/25 13:40 LN [id number]) Discharge Planning Assessment Assigned Discharge PITA [place] Assistant Men'S Lacrosse Coach Provider Ryne Manuel Insurance Comment No current active insurance, hx of [facility] Advantage, SHAYY, MCR part B Advance Directives? No Advance Directives No on File History Provided By Patient,Medical Record Has Patient been No admitted in last 30 days? Prior Living Apartment/Condo Arrangements Household Members none Type of Drives own vehicle transporation used prior to admit Independent with ADL Yes 's Is patient alert and Yes oriented? DME Already Rented / Cane Owned Comment Patient open to SNF rehab if recommended but is not sure why his insurance is inactive. JAVA WEB ENGINEER provided patient with [employer] information and registration provided financial assistance packet. Additional Comment Patient's listed contact with contacted with patient's consent.
--- NOTE | 2025-09-08 14:17 | PC.NURSE ---
Pt arrived from ED at 1311, transferred to bed via slider board. AxOx3, confused about location but easily reoriented. Hypertensive 182/70, HR 67, otherwise VSS on RA, MD aware of BP. Lung sounds diminished, bowel sounds present, LUE and LLE weaker than R but sensation intact bilaterally. Pt oriented to room and call light. Bed in low position, call light within reach, bed alarm activated.
--- NOTE | 2025-09-08 14:19 | P.HP_ITS ---
History of Present Illness History of Present Illness Date Patient Seen: 09/08/25 Chief complaint: GLF down 5 days Narrative: Chief complaint: Ground level fall failure to thrive too weak to get up on the floor of his apartment for an unknown period of days History of present illness: 09/08: 79-year-old male with a history of multiple strokes on Eliquis for secondary prevention began having leg weakness in April of 2025 when his leg would not bear his weight when he got out of the car since then he has become progressively weaker being unable to ambulate. He was at home and fell and remained on the floor greater than 48 hours before help could arrive he was brought into the emergency room for evaluation. Findings in the emergency department significant for slight elevation of CK 372 very slight elevation of troponin 0.052 BNP of 1000 white count of 9.8 with 82% neutrophils EKG shows a ventricularly paced rhythm chest x-ray is of very poor quality and although does not show anything acute is really not interpretable Past medical history: * Primary osteoarthritis of both knees * Diverticulitis of colon with perforation * Chronic kidney disease * Fistula of gallbladder * Traumatic brain injury * Diverticulosis * Paroxysmal atrial fibrillation * CVA (cerebral vascular accident) * Hypertension * Closed head injury Review of systems: No fever or chills rigors Has had about a 20 lb weight loss in the past 6 months Diminished appetite No chest pain palpitations shortness for breath No nausea vomiting diarrhea constipation No paresthesia paresis Has having urinary incontinence Physical exam: Very pleasant elderly gentleman no acute distress at the time of my examination but easily distracted unfocused and Darin phrenic HEENT within normal limits Heart rate and rhythm regular no murmurs Lungs clear to auscultation Abdomen nontender Neurologic cranial nerves intact Alert and oriented x4 Generalized weakness but no focal weakness Reflexes 1+ and equal x4 Normal [id number] intact on right Unable to lift left upper extremity against gravity Patient unable to stand test for gait 4/5 strength legs leg raise on the right Relatively less strength left raise on the left Assessment and plan: Progressive failure to thrive with progressive weakness in gait with history of stroke and suspicion for 1 or more strokes starting in April of 2025 also consider NPH * CTA of the head and blood vessels * MRI of the brain * Echocardiogram * Continue Eliquis * Continue high-intensity statin therapy * PT and OT * We will require acute rehab * Even if MRI does not detect strokes clinical picture is highly suggestive. 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 * Diverticulitis of colon with perforation * Chronic kidney disease * Fistula of gallbladder * Traumatic brain injury * Diverticulosis * Paroxysmal atrial fibrillation * CVA (cerebral vascular accident) * Hypertension * Closed head injury DVT prophylaxis: * Covered with Eliquis Code status: * Full code blue Disposition: * Inpatient will likely require 2 days for full diagnostic therapeutic workup and referral for acute rehab Time based billing: * 75 minutes were involved in evaluation of this patient including [id number] evaluation physical examination of the patient extended interview with the patient and examination discussion with care team and emergency provider review of extensive records review of objective laboratory findings and imaging [facility] Medical History (Updated 09/08/25 @ 14:34 by Hever Perez MD) Primary osteoarthritis of both knees Diverticulitis of colon with perforation Chronic kidney disease Fistula of gallbladder Traumatic brain injury Diverticulosis Paroxysmal atrial fibrillation CVA (cerebral vascular accident) Hypertension Closed head injury Surgical History Hx of appendectomy Hx of cholecystectomy History of hemicolectomy H/O exploratory laparotomy Hx of colonoscopy H/O abdominal surgery H/O ileostomy Family History Mother Kidney disease Father No problems noted. Sister Kidney disease Kidney cysts Social History household members: none Smoking Status: Former smoker alcohol intake: current Meds Home Medications and Allergies Home Medications ?Medication ?Instructions ?Recorded ?Confirmed ?Type atorvastatin 20 mg tablet (Lipitor) 40 mg (2 x 20 mg) PO BEDTIME #30 02/07/19 09/08/25 Rx tabs apixaban 5 mg tablet (Eliquis) 5 mg PO BID 08/30/25 History ascorbate calcium (vitamin C) 500 500 mg PO DAILY 08/0609/08/25 History mg tablet carvedilol 25 mg tablet (Coreg) 25 mg PO BID 08/30/25 09/08/25 History losartan 100 mg tablet (Cozaar) 100 mg PO DAILY 09/08/25 History Allergies Allergy/AdvReac Type Severity Reaction Status Date / Time No Known Drug Allergies Allergy Verified 08/25/25 15:00 Exam Vital Signs (past 8 hours): - 09/08/25 09:19 09/08/25 09:25 09/08/25 09:30 Temperature 98 F Pulse Rate 70 62 60 Respiratory Rate 18 24 19 Blood Pressure 206/103 H 206/103 H Pulse Oximetry 95 97 98 Oxygen Delivery Method Room Air Oxygen Flow Rate 09/08/25 09:52 09/08/25 09:52 09/08/25 10:00 Temperature Pulse Rate 61 60 Respiratory Rate 17 17 Blood Pressure 226/103 H Pulse Oximetry 96 Oxygen Delivery Method Oxygen Flow Rate 09/08/25 10:28 09/08/25 10:35 09/08/25 10:37 Temperature Pulse Rate 60 61 60 Respiratory Rate 22 Blood Pressure 226/103 H Pulse Oximetry 97 97 Oxygen Delivery Method Oxygen Flow Rate 09/08/25 10:37 09/08/25 11:00 09/08/25 11:07 Temperature Pulse Rate 60 60 Respiratory Rate 15 14 Blood Pressure 209/166 H Pulse Oximetry 96 96 Oxygen Delivery Method Oxygen Flow Rate 09/08/25 11:07 09/08/25 11:26 09/08/25 11:26 Temperature Pulse Rate 60 Respiratory Rate 15 Blood Pressure 240/107 H 201/123 H Pulse Oximetry 94 Oxygen Delivery Method Oxygen Flow Rate 09/08/25 11:30 09/08/25 11:30 09/08/25 11:44 Temperature Pulse Rate 60 60 Respiratory Rate 15 Blood Pressure 212/95 H 212/95 H Pulse Oximetry 92 Oxygen Delivery Method Oxygen Flow Rate 09/08/25 11:57 09/08/25 11:57 09/08/25 12:00 Temperature Pulse Rate 61 Respiratory Rate 16 Blood Pressure 175/79 H 175/79 H Pulse Oximetry 97 Oxygen Delivery Method Oxygen Flow Rate 09/08/25 12:00 09/08/25 12:15 09/08/25 12:15 Temperature Pulse Rate 61 60 Respiratory Rate 16 17 Blood Pressure 167/77 H Pulse Oximetry 97 96 Oxygen Delivery Method Oxygen Flow Rate 09/08/25 12:26 09/08/25 12:30 09/08/25 12:30 Temperature Pulse Rate 60 61 Respiratory Rate 22 Blood Pressure 167/77 H 180/78 H Pulse Oximetry 97 Oxygen Delivery Method Oxygen Flow Rate 09/08/25 13:44 Temperature 96.3 F L Pulse Rate 67 Respiratory Rate 16 Blood Pressure 182/70 H Pulse Oximetry 97 Oxygen Delivery Method Oxygen Flow Rate 0 Oxygen Delivery Method Room Air Oxygen Flow Rate 0 Objective Labs 09/08/25 09:43 09/08/25 09:43 Labs: Laboratory Results - last 24 hr 09/08/25 09/08/25 09/08/25 09:43 10:36 12:44 WBC 9.8 RBC 5.03 Hgb 15.4 Hct 44.2 MCV 87.9 MCH 30.7 MCHC 34.9 RDW 13.1 Plt Count 168 Neut % (Auto) 82.4 H Lymph % (Auto) 5.3 L [place] % (Auto) 9.7 Eos % (Auto) 2.0 Baso % (Auto) 0.6 Neut # (Auto) 8100 H Lymph # (Auto) 500 L [place] # (Auto) 1000 H Eos # (Auto) 200 Baso # (Auto) 100 PT 13.6 H INR 1.2 APTT 26 VBG pH 7.39 VBG pCO2 49.7 VBG pO2 23 L VBG HCO3 30 H VBG Total CO2 29 VBG O2 Saturation 37 L VBG Base Excess 4.0 Sodium 145 Potassium 3.9 Chloride 108 H Carbon Dioxide 28 BUN 29 H Creatinine 1.09 Estimated GFR > 60 BUN/Creatinine Ratio 26.6 H Glucose 138 H Lactate 1.8 Calcium 11.2 H Total Bilirubin 2.0 H AST 97 H ALT 62 H Alkaline Phosphatase 86 Total Creatine Kinase 372 H Troponin I 0.052 H 0.053 H Total Protein 7.6 Albumin 3.9 Globulin 3.7 Albumin/Globulin Ratio 1.1 TSH 2.31 Ethyl Alcohol < 10 Assessment & Plan Time-Based Coding :: [TOTAL MINUTES] spent with patient and on the chart (including review of chart, obtaining history, exam, reviewing outside data, placing orders, documenting exam and treatment plan, and counseling patient) on [DATE]. Quality VTE Deep Vein Thrombosis/Pulmonary Embolism Present on Admission: No
--- NOTE | 2025-09-08 14:32 | ED.FALL ---
HPI - Fall General Chief Complaint: Fall Stated Complaint: GLF down 5 days Time Seen by Provider: 09/08/25 09:20 Source: EMS Mode of arrival: EMS History of Present Illness HPI Narrative: 79 M w/ hx of CVA on Eliquis was at home and fell and remained on the floor greater than 48 hours before help could arrive. Brought to the ER after a wellness check discovered the patient was on the ground. denies fevers, chills, nausea, vomiting, diarrhea, abdominal pain, chest pain, shortness of breath, dizziness, or headache. Related Data Home Medications ?Medication ?Instructions ?Recorded ?Confirmed apixaban 5 mg tablet (Eliquis) 5 mg PO BID 08/30/25 09/08/25 ascorbate calcium (vitamin C) 500 500 mg PO DAILY 08/30/25 09/08/25 mg tablet carvedilol 25 mg tablet (Coreg) 25 mg PO BID 08/30/25 09/08/25 losartan 100 mg tablet (Cozaar) 100 mg PO DAILY 08/30/25 09/08/25 Previous Rx's ?Medication ?Instructions ?Recorded atorvastatin 20 mg tablet (Lipitor) 40 mg (2 x 20 mg) PO BEDTIME #30 02/07/19 tabs Allergies Allergy/AdvReac Type Severity Reaction Status Date / Time No Known Drug Allergies Allergy Verified 08/25/25 15:00 Review of Systems Review of Systems ROS Unobtainable: All systems reviewed & are unremarkable except as noted in HPI and below Patient History Medical History (Updated 09/08/25 @ 14:34 by Hever Perez MD) Primary osteoarthritis of both knees Diverticulitis of colon with perforation Chronic kidney disease Fistula of gallbladder Traumatic brain injury Diverticulosis Paroxysmal atrial fibrillation CVA (cerebral vascular accident) Hypertension Closed head injury Surgical History Hx of appendectomy Hx of cholecystectomy History of hemicolectomy H/O exploratory laparotomy Hx of colonoscopy H/O abdominal surgery H/O ileostomy Family History Mother Kidney disease Father No problems noted. Sister Kidney disease Kidney cysts Social History household members: none Smoking Status: Former smoker alcohol intake: current Smoking Status: Former smoker alcohol intake frequency: holidays/special occasions only Alcohol type: beer Exam Narrative Exam Narrative: 79-year-old male slightly confused at baseline as far as time and date, with slight weakness of the left upper and lower extremity secondary to prior stroke. Initial Vital Signs Initial Vital Signs: Vital Signs Temperature 98 F 09/08/25 09:19 Pulse Rate 70 09/08/25 09:19 Respiratory Rate 18 09/08/25 09:19 Blood Pressure 206/103 H 09/08/25 09:19 Pulse Oximetry 95 09/08/25 09:19 Oxygen Delivery Method Room Air 09/08/25 09:19 Const General: cooperative, healthy appearing, comfortable and well developed Nutritional Appearance: average body habitus [facility] Head: normal to inspection Ears: external ears normal Nose: external nose normal and nares normal Face and sinus: sinuses nontender, face symmetric, ecchymosis not on the right, not on the left and not bilaterally, erythema not on the right, not on the left and not bilaterally and edema not on the right, not on the left and not bilaterally Mouth: lip normal Eyes General: Yes appearance normal, both eyes and all related structures Eyelids: eyelids normal Sclera: sclerae normal Pupils: PERRL Neck Neck: normal visual inspection Resp Effort & Inspection: normal respiratory effort and able to speak in complete sentences Cardio Rate: regular rate Rhythm: regular rhythm Pulses: radial pulses present GI Inspection: normal to inspection and non-distended General: bimanual renal exam normal bilaterally Back/Spine/Pelvis Back: normal to inspection Skin General: no rashes or lesions noted Neuro General: patient alert, patient awake, gait normal, moves all extremities, normal light touch, pain and propioception, no focal motor deficits and CN's II-XI intact bilaterally Speech: speech normal Gait: normal gait Motor: muscle tone normal throughout Sensory Exam: no sensory deficits noted Extrem General: normal to inspection Psych Appearance: grossly normal Mental Status: mental status grossly normal Speech and Movement: speech and movement normal Mood: congruent mood Attitude: cooperative Thought Process: normal Thought Content: normal Judgment: judgment good Course Orders Ordered: Acetaminophen (Acetaminophen 325 Mg Tablet) 650 mg PO Q6H PRN PRN Reason: Fever/Mild Pain (1-3) Hydrocodone Bitart/Acetaminophen (Hydrocodone/Acet 5/325 Tablet) 1 tab PO Q4H PRN PRN Reason: Pain, Moderate (4-6) Hydrocodone Bitart/Acetaminophen (Hydrocodone/Acet 5/325 Tablet) 2 tab PO Q4H PRN PRN Reason: Pain, Severe (7-10) Apixaban (Apixaban 5 Mg Tablet) 5 mg PO BID [facility] Last Admin: 09/10/25 08:38 Dose: 5 mg Documented By: Admin: 09/09/25 20:57 Dose: 5 mg Documented By: Admin: 09/09/25 11:23 Dose: 5 mg Documented By: Admin: 09/08/25 20:45 Dose: 5 mg Documented By: Admin: 09/08/25 15:48 Dose: 5 mg Documented By: DAVE Ascorbic Acid (Ascorbic Acid 500 Mg Tablet) 500 mg PO DAILY [facility] Last Admin: 09/10/25 08:38 Dose: 500 mg Documented By: Admin: 09/09/25 11:23 Dose: 500 mg Documented By: BERONICA Atorvastatin Calcium (Atorvastatin 20 Mg Tablet) 40 mg PO BEDTIME [facility] Last Admin: 09/09/25 20:57 Dose: 40 mg Documented By: Admin: 09/08/25 20:45 Dose: 40 mg Documented By: TARAS Carvedilol (Carvedilol 12.5 Mg Tablet) 25 mg PO BID [facility] Last Admin: 09/10/25 08:38 Dose: 25 mg Documented By: Admin: 09/09/25 20:57 Dose: 25 mg Documented By: Admin: 09/09/25 11:22 Dose: 25 mg Documented By: Admin: 09/08/25 20:44 Dose: 25 mg Documented By: TARAS Docusate Sodium (Docusate 100 Mg Capsule) 100 mg PO BID [facility] Last Admin: 09/10/25 08:39 Dose: 100 mg Documented By: Admin: 09/09/25 21:05 Dose: Not Given Documented By: Admin: 09/09/25 11:22 Dose: 100 mg Documented By: Admin: 09/08/25 20:45 Dose: 100 mg Documented By: TARAS Ceftriaxone Sodium 1,000 mg/ (Sodium Chloride) 100 mls @ 200 mls/hr IV Q24H [facility] Last Infusion: 09/09/25 22:34 Dose: Infused Documented By: Admin: 09/09/25 20:57 Dose: 200 mls/hr Documented By: TARAS Losartan Potassium (Losartan 50 Mg Tablet) 100 mg PO DAILY [facility] Last Admin: 09/10/25 08:39 Dose: 100 mg Documented By: LDVahe Admin: 09/09/25 11:23 Dose: 100 mg Documented By: Admin: 09/08/25 15:48 Dose: 100 mg Documented By: DAVE Naloxone HCl (Naloxone 0.4 Mg/Ml Vial) 0.2 mg IV Q2MIN PRN PRN Reason: Opiate Reversal Discontinued Medications Heparin Sodium (Porcine) (Heparin 5,000 Unit/Ml Vial) 5,000 unit SUBCUT BID [facility] Hydralazine HCl (Hydralazine 20 Mg/Ml Vial) 20 mg IV NOW ONE Stop: 09/08/25 11:38 Last Admin: 09/08/25 11:44 Dose: 20 mg Documented By: RB Sodium Chloride (Normal Saline 0.9%) 1,000 mls @ 999 mls/hr IV BOLUS ONE Stop: 09/08/25 10:35 Last Infusion: 09/08/25 11:44 Dose: Infused Documented By: Admin: 09/08/25 10:27 Dose: 999 mls/hr Documented By: RB Sodium Chloride (Normal Saline 0.9%) 1,000 mls @ 1,000 mls/hr IV BOLUS ONE Stop: 09/08/25 13:18 Last Infusion: 09/08/25 15:24 Dose: Infused Documented By: Admin: 09/08/25 12:25 Dose: 1,000 mls/hr Documented By: RB Sodium Chloride (Normal Saline 0.9%) 1,000 mls @ 100 mls/hr IV CONT JUSTA Last Infusion: 09/10/25 13:33 Dose: Infused Documented By: Admin: 09/10/25 08:38 Dose: 100 mls/hr Documented By: Infusion: 09/10/25 06:58 Dose: Infused Documented By: Admin: 09/09/25 20:58 Dose: 100 mls/hr Documented By: Infusion: 09/09/25 12:02 Dose: Infused Documented By: Admin: 09/09/25 02:02 Dose: 100 mls/hr Documented By: Infusion: 09/09/25 01:50 Dose: Infused Documented By: Admin: 09/08/25 15:50 Dose: 100 mls/hr Documented By: DAVE Losartan Potassium (Losartan 50 Mg Tablet) 100 mg PO NOW ONE Stop: 09/08/25 10:19 Last Admin: 09/08/25 10:28 Dose: 100 mg Documented By: DESTINY Morphine Sulfate (Morphine 2 Mg/Ml Inj) 2 mg IV NOW ONE Stop: 09/08/25 10:19 Last Admin: 09/08/25 10:28 Dose: 2 mg Documented By: DESTINY Potassium Chloride (Potassium Chloride 20 Meq Tab) 40 meq PO Q6H JUSTA Stop: 09/09/25 14:31 Last Admin: 09/09/25 15:07 Dose: 40 meq Documented By: Admin: 09/09/25 11:22 Dose: 40 meq Documented By: BERONICA Vital Signs Vital signs: Vital Signs - 8 hr 09/08/25 09:19 09/08/25 09:25 09/08/25 09:30 Temperature 98 F Pulse Rate 70 62 60 Respiratory Rate 18 24 19 Blood Pressure 206/103 H 206/103 H Pulse Oximetry 95 97 98 Oxygen Delivery Method Room Air 09/08/25 09:52 09/08/25 09:52 09/08/25 10:00 Temperature Pulse Rate 61 60 Respiratory Rate 17 17 Blood Pressure 226/103 H Pulse Oximetry 96 Oxygen Delivery Method 09/08/25 10:28 09/08/25 10:35 09/08/25 10:37 Temperature Pulse Rate 60 61 60 Respiratory Rate 22 Blood Pressure 226/103 H Pulse Oximetry 97 97 Oxygen Delivery Method 09/08/25 10:37 09/08/25 11:00 09/08/25 11:07 Temperature Pulse Rate 60 60 Respiratory Rate 15 14 Blood Pressure 209/166 H Pulse Oximetry 96 96 Oxygen Delivery Method 09/08/25 11:07 09/08/25 11:26 09/08/25 11:26 Temperature Pulse Rate 60 Respiratory Rate 15 Blood Pressure 240/107 H 201/123 H Pulse Oximetry 94 Oxygen Delivery Method 09/08/25 11:30 09/08/25 11:30 09/08/25 11:44 Temperature Pulse Rate 60 60 Respiratory Rate 15 Blood Pressure 212/95 H 212/95 H Pulse Oximetry 92 Oxygen Delivery Method 09/08/25 11:57 09/08/25 11:57 09/08/25 12:00 Temperature Pulse Rate 61 Respiratory Rate 16 Blood Pressure 175/79 H 175/79 H Pulse Oximetry 97 Oxygen Delivery Method 09/08/25 12:00 09/08/25 12:15 09/08/25 12:15 Temperature Pulse Rate 61 60 Respiratory Rate 16 17 Blood Pressure 167/77 H Pulse Oximetry 97 96 Oxygen Delivery Method 09/08/25 12:26 09/08/25 12:30 09/08/25 12:30 Temperature Pulse Rate 60 61 Respiratory Rate 22 Blood Pressure 167/77 H 180/78 H Pulse Oximetry 97 Oxygen Delivery Method MDM - Fall Lab Data 09/10/25 04:50 09/10/25 04:50 Labs: Lab Results 09/08/25 09/08/25 09/08/25 Range/Units 09:43 10:05 10:36 WBC 9.8 (4.5-11.0) X10^3/uL RBC 5.03 (4.5-5.9) X10^6/uL Hgb 15.4 (13.5-17.5) g/dL Hct 44.2 (41-53) % MCV 87.9 (80-100) fL MCH 30.7 (26-34) PG MCHC 34.9 (30-36) % RDW 13.1 (11.6-14.8) % Plt Count 168 (150-400) X10^3/uL Neut % (Auto) 82.4 H (50-75) % Lymph % (Auto) 5.3 L (25-40) % [place] % (Auto) 9.7 (3-14) % Eos % (Auto) 2.0 (2-4) % Baso % (Auto) 0.6 (0-2) % Neut # (Auto) 8100 H (0060-7108) /uL Lymph # (Auto) 500 L (9295-4948) /uL [place] # (Auto) 1000 H (0-900) /uL Eos # (Auto) 200 (0-450) /uL Baso # (Auto) 100 (0-100) /uL PT 13.6 H (9.4-12.5) SECONDS INR 1.2 (0.9-1.3) APTT 26 (25.1-36.5) SECONDS VBG pH 7.39 (7.33-7.43) VBG pCO2 49.7 (45-50) mmHg VBG pO2 23 L (35-45) mmHg VBG HCO3 30 H (24-28) mmol/L VBG Total CO2 29 (24-29) mmol/L VBG O2 Saturation 37 L (70-75) % VBG Base Excess 4.0 (0-4) mmol/L Sodium 145 (137-145) mmol/L Potassium 3.9 (3.4-5.1) mmol/L Chloride 108 H (98-107) mmol/L Carbon Dioxide 28 (22-32) mmol/L BUN 29 H (9-20) mg/dL Creatinine 1.09 (0.66-1.25) mg/dL Estimated GFR > 60 (>60) mL/min BUN/Creatinine Ratio 26.6 H (6-22) Glucose 138 H (70-99) mg/dL POC Whole Bld Glucose 144 H (70-99) mg/dL Lactate 1.8 (0.7-2.1) mmol/L Calcium 11.2 H (8.4-10.2) mg/dL Total Bilirubin 2.0 H (0.2-1.3) mg/dL AST 97 H (17-59) IU/L ALT 62 H (<50) IU/L Alkaline Phosphatase 86 (38-126) U/L Total Creatine Kinase 372 H (55-170) U/L Troponin I 0.052 H (0.01-0.034) ng/mL Total Protein 7.6 (6.3-8.2) g/dL Albumin 3.9 (3.5-5.0) g/dL Globulin 3.7 (1.7-4.1) g/dL Albumin/Globulin Ratio 1.1 (1.0-2.8) TSH 2.31 (0.47-4.68) uIU/mL Free T4 1.85 (0.78-2.19) ng/dL Ethyl Alcohol < 10 (<10) mg/dL 09/08/25 Range/Units 12:44 WBC (4.5-11.0) X10^3/uL RBC (4.5-5.9) X10^6/uL Hgb (13.5-17.5) g/dL Hct (41-53) % MCV (80-100) fL MCH (26-34) PG MCHC (30-36) % RDW (11.6-14.8) % Plt Count (150-400) X10^3/uL Neut % (Auto) (50-75) % Lymph % (Auto) (25-40) % [place]es % (Auto) (3-14) % Eos % (Auto) (2-4) % Baso % (Auto) (0-2) % Neut # (Auto) (8575-0853) /uL Lymph # (Auto) (6999-9015) /uL [place] # (Auto) (0-900) /uL Eos # (Auto) (0-450) /uL Baso # (Auto) (0-100) /uL PT (9.4-12.5) SECONDS INR (0.9-1.3) APTT (25.1-36.5) SECONDS VBG pH (7.33-7.43) VBG pCO2 (45-50) mmHg VBG pO2 (35-45) mmHg VBG HCO3 (24-28) mmol/L VBG Total CO2 (24-29) mmol/L VBG O2 Saturation (70-75) % VBG Base Excess (0-4) mmol/L Sodium (137-145) mmol/L Potassium (3.4-5.1) mmol/L Chloride (98-107) mmol/L Carbon Dioxide (22-32) mmol/L BUN (9-20) mg/dL Creatinine (0.66-1.25) mg/dL Estimated GFR (>60) mL/min BUN/Creatinine Ratio (6-22) Glucose (70-99) mg/dL POC Whole Bld Glucose (70-99) mg/dL Lactate (0.7-2.1) mmol/L Calcium (8.4-10.2) mg/dL Total Bilirubin (0.2-1.3) mg/dL AST (17-59) IU/L ALT (<50) IU/L Alkaline Phosphatase (38-126) U/L Total Creatine Kinase (55-170) U/L Troponin I 0.053 H (0.01-0.034) ng/mL Total Protein (6.3-8.2) g/dL Albumin (3.5-5.0) g/dL Globulin (1.7-4.1) g/dL Albumin/Globulin Ratio (1.0-2.8) TSH (0.47-4.68) uIU/mL Free T4 (0.78-2.19) ng/dL Ethyl Alcohol (<10) mg/dL Point of Care Testing Glucose POC 155 MDM Narrative Medical decision making narrative: Pt presents after being found down for unknown period of time. EKG to evaluate for evidence of arrhythmia, Labwork to evaluate for evidence of electrolyte abnormality such as hyponatremia/hypernatremia/hypokalemia/hyperkalemia/hypoglycemia/hyperglycemia/drug drug poisoning/ETOH poisoning, etc. CT brain to evaluate for evidence of head injury/intracranial bleed or mass. Chest x-ray to evaluate for evidence of pneumonia. Will admit due to elevated trop, pt to weak to safely d/c home. Discharge Plan Departure Patient Disposition: Admitted As Inpatient Clinical Impression: Elevated troponin, Adult failure to thrive Admit Date/Time: 09/08/25 13:20 Admit Provider: Gentry Camilo
--- NOTE | 2025-09-08 15:11 | DI.ECHO.S_ITS ---
[place] [facility] : : [address] : : [place] : : [id number] : : Phone: [phone] Echocardiogram Report + + :Name: BURTON MARTINEZ Study Date: 09/08/2025 Height: 76 in : :[facility] ReadingLocation: Weight: 249 lb : : Gender: Male BSA: 2.4 m2 : :: 1945 Age: 79 yrs BP: 182/70 mmHg: :Reason For Study: SYNCOPE : :Ordering Physician: MADI, : :RENETTA Performed By: Bj El : :Referring: RENETTA BARRAZA : + + Interpretation Summary Technically difficult study. Patient unable to stay awake and compliant with breath-hold. Normal LV size and systolic function. LVEF is 65 to 70%. RV appears dilated in certain views. Biatrial enlargement. Mild tricuspid regurgitation. Ascending aorta measures 3.9 cm. Other findings as below. Procedure: A two-dimensional transthoracic echocardiogram with color flow and Doppler was performed. The study quality was technically difficult. Comparison is made with the echocardiogram of 02/01/2019. The patient was in normal sinus rhythm during the exam. Left Ventricle: The left ventricle is normal in size. Left ventricular wall thickness is mildly increased. There is no ventricular septal defect visualized. The ejection fraction is estimated to be 65-70%. Diastolic parameters suggest probable normal left ventricular diastolic function and normal filling pressures. Right Ventricle: The right ventricle is mild to moderately dilated. There is a pacemaker lead in the right ventricle. Atria: The left atrium is moderately dilated. The right atrium is severely dilated. There is a catheter/pacemaker lead seen in the right atrium. The interatrial septum is not well visualized. Mitral Valve: There is mild mitral annular calcification. The mitral valve leaflets appear mildly thickened. There is trace mitral regurgitation. Aortic Valve: The aortic valve is trileaflet. The aortic valve is mildly calcified. No aortic regurgitation is present. Tricuspid Valve: The tricuspid valve is not well visualized, but is grossly normal. There is mild tricuspid regurgitation. Pulmonic Valve: The pulmonic valve is not well seen, but is grossly normal. There is trace pulmonic regurgitation. Great Vessels: The aortic root is mildly dilated. The dimensions of the ascending aorta are normal. The pulmonary artery is not well visualized, but is probably normal size. The inferior vena cava was not visualized. Pericardium/ Pleura There is no pericardial effusion. MMode/2D Measurements & Calculations LVIDd: 4.8 cm LVOT diam: 2.3 cm LVIDs: 3.1 cm Ao root diam: 3.9 cm FS: 36.3 % asc Aorta Diam: 3.6 cm EPSS: 0.73 cm Ao Arch Diam (Prox Trans): 2.0 cm IVSd: 1.1 cm LVPWd: 1.2 cm LV watson. diameter/BSA (cm/m^2): 2.0 LV sys. diameter/BSA (cm/m^2): 1.3 LA A2 area: 23.1 cm2 RA long axis: 6.9 cm LA A4 area: 25.8 cm2 RA area: 32.1 cm2 LA length (vol): 6.7 cm RA vol: 128.0 ml LA vol: 75.2 ml RA : 52.6 ml/m2 LA vol index: 30.9 ml/m2 RVD1 (basal): 4.4 cm RVD2 (mid): 3.5 cm Doppler Measurements & Calculations Ao V2 max: 136.8 cm/sec LVOT Max Rolly: 93.7 cm/sec Ao V2 mean: 104.6 cm/sec LV V1 max P.5 mmHg Ao max P.5 mmHg LV V1 VTI: 16.5 cm Ao mean P.7 mmHg GIOVANNA(I,D): 2.8 cm2 Ao V2 VTI: 25.5 cm GIOVANNA(V,D): 2.9 cm2 sev ratio: 0.65 GIOVANNA indexed to BSA (cm^2/m^2): 1.1 MV E max rolly: 78.8 cm/sec TR max rolly: 260.1 cm/sec MV A max rolly: 25.7 cm/sec TR max P.1 mmHg MV E/A: 3.1 PA V2 max: 110.3 cm/sec Med Peak E' Rolly: 8.8 cm/sec PA V2 mean: 71.3 cm/sec E/E' med: 9.0 PA mean P.4 mmHg Lat Peak E' Rolly: 5.3 cm/sec PA pr(Accel): 46.5 mmHg E/E' lat: 15.0 E/e' average: 12.0 MV dec time: 0.24 sec SV(LVOT): 71.2 ml Reading Physician:07:12 PM
[2025-09-08] MEDS: APIXABAN 5 MG TABLET PO ×2 (15:48→20:45)
[2025-09-08] MEDS: SODIUM CHLORIDE 0.9% 1,000 ML 100 ML IV (15:50)
--- NOTE | 2025-09-08 16:06 | DI.CT.S_ITS ---
PROCEDURE: CT ANGIO HEAD AND NECK INDICATIONS: Stroke-like symptoms TECHNIQUE: After the administration of intravenous contrast, 1 mm thick sections acquired from the aortic arch through the [place] of [place]. 3-dimensional [id number]-qlrxiihwrg (MIP) and/or volume rendering reformats were acquired of the central intracranial vasculature and neck separately. For radiation dose reduction, the following was used: automated exposure control, adjustment of mA and/or kV according to patient size. COMPARISON: None. FINDINGS: Image quality: Diagnostic. Cerebral CT Angiogram: Internal carotid arteries: No acute findings. Intracranial ICA are patent with no significant stenosis. No occlusion. No aneurysm. Anterior cerebral arteries: Unremarkable. No significant stenosis. No occlusion. No aneurysm. Middle cerebral arteries: Unremarkable. No significant stenosis. No occlusion. No aneurysm. Posterior cerebral arteries: Unremarkable. No significant stenosis. No occlusion. No aneurysm. Basilar artery: Unremarkable. No significant stenosis. No occlusion. No aneurysm. Vertebral arteries: Unremarkable as visualized. Dural venous sinuses: Unremarkable given phase of enhancement. Other: Arterial phase appearance of the brain parenchyma is unremarkable. Neck CT Angiogram: Internal carotid arteries: Mild soft atherosclerotic plaques.. No significant stenosis. No dissection or occlusion. Common carotid arteries: Unremarkable. No significant stenosis. No dissection or occlusion. External carotid arteries: Unremarkable. No occlusion. Vertebral arteries: Unremarkable. No significant stenosis. No dissection or occlusion. Aortic Arch and Mediastinum: Partially visualized aortic arch unremarkable without evidence of aneurysm. Origins of the great vessels unremarkable. Calcified noncalcified atherosclerotic plaques of the aortic arch and ectasia. Other: Cardiomegaly. Degenerative changes of the cervical spine. Disproportion of fatty degeneration of left rotator cuff muscles which may reflect chronic tendon tearing. IMPRESSION: No severe stenosis or occlusion. Atherosclerosis. Any quantitative measurements of stenosis were performed using NASCET criteria. Dictated by: Idris Duran M.D. on 09/08/2025 at 17:43 Approved by: Idris Duran M.D. on 09/08/2025 at 17:47
[2025-09-08 19:17] LABS: Free T4, Direct Thyroxine 1.85 ng/dL (0.78-2.19)
[2025-09-08] MEDS: ATORVASTATIN 20 MG TABLET 40 MG PO (20:45)
[2025-09-08] MEDS: DOCUSATE 100 MG CAPSULE PO (20:45)
[2025-09-08 20:50] LABS: Appearance Urine UA SL CLOUDY; Bilirubin Urine UA NEGATIVE (NEGATIVE); Color Urine UA YELLOW; Glucose Urine UA NEGATIVE (Negative); Ketones Urine UA NEGATIVE (NEGATIVE); Leukocyte Esterase Urine UA 3+ (NEGATIVE); Nitrite Urine UA NEGATIVE (Negative); Occult Blood Urine UA TRACE-INTACT (Negative); Protein Urine UA 1+ (Negative); Specific Gravity Urine UA 1.020 (1.000-1.035); Urobilinogen Urine UA 2.0 E.U./dL (0.2); pH Urine UA 5.5 (4.5-8.0)
[2025-09-08 20:54] LABS: UR Morphine/Opiate cutoff 300 Positive (Negative); Ur Specific Gravity Normal (Normal); Urine MDMA Negative (Negative); Urine Methamphetamines Negative (Negative); Urine Tetrahydrocannabinol Negative (Negative)
[2025-09-08 20:55] LABS: Urine Tricyclic Antidepressant Negative (Negative)
[2025-09-08 20:57] LABS: Culture Indicated Urine Specimen Cultured
[2025-09-09] MEDS: SODIUM CHLORIDE 0.9% 1,000 ML 100 ML IV ×2 (02:02→20:58)
[2025-09-09 04:32] VITALS: BP 161/80; PULSE 63; RESP 15; TEMP 36.1; O2SAT 97
[2025-09-09 06:08] LABS: Add Manual Diff / Slide Review NO; Hematocrit 36.5 % (41-53); Hemoglobin 12.8 g/dL (13.5-17.5); Lymphocytes Absolute Auto 700 /uL (1100-4500); Mean Corpuscular HGB Conc 35.0 % (30-36); Mean Corpuscular Hemoglobin 30.8 PG (26-34); Mean Corpuscular Volume 88.0 fL (80-100); Platelet Count 146 X10^3/uL (150-400)
[2025-09-09 06:21] LABS: Alanine Aminotransferase 53 IU/L (<50); Albumin 2.8 g/dL (3.5-5.0); Albumin Globulin Ratio 1.0 (1.0-2.8); Alkaline Phosphatase 76 U/L (38-126); Blood Urea Nitrogen 28 mg/dL (9-20); Calcium 9.9 mg/dL (8.4-10.2); Carbon Dioxide 26 mmol/L (22-32); Chloride 110 mmol/L (98-107); Estimated Glomerular Filt Rate > 60 mL/min (>60); Globulin 2.9 g/dL (1.7-4.1); Glucose 151 mg/dL (70-99); HEMOLYSIS < 15 (0-50); Potassium 3.2 mmol/L (3.4-5.1); Sodium 140 mmol/L (137-145); Total Protein 5.7 g/dL (6.3-8.2)
--- NOTE | 2025-09-09 07:47 | PM.PN.1 ---
Subjective Subjective Interval history: Course: Ground level fall failure to thrive too weak to get up on the floor of his apartment for an unknown period of days History of present illness: 09/08: 79-year-old male with a history of multiple strokes on Eliquis for secondary prevention began having leg weakness in April of 2025 when his leg would not bear his weight when he got out of the car since then he has become progressively weaker being unable to ambulate. He was at home and fell and remained on the floor greater than 48 hours before help could arrive he was brought into the emergency room for evaluation. Findings in the emergency department significant for slight elevation of CK 372 very slight elevation of troponin 0.052 BNP of 1000 white count of 9.8 with 82% neutrophils EKG shows a ventricularly paced rhythm chest x-ray is of very poor quality and although does not show anything acute is really not interpretable S: He remains weak, no new complaints. No pain. He had a bowel movement today. O: NAD, alert and oriented. Fluent speech. Lungs are clear, normal rate and effort. Heart is regular, no murmur gallop or rub. Abdomen is soft, non distended. Extremities are free of edema. IMAGING: CTA Head and neck: No severe stenosis or occlusion. Atherosclerosis. ECHO: Technically difficult study. Patient unable to stay awake and compliant with breath-hold. Normal LV size and systolic function. LVEF is 65 to 70%. RV appears dilated in certain views. Biatrial enlargement. Mild tricuspid regurgitation. Ascending aorta measures 3.9 cm. Other findings as below. Head CT: No acute intracranial pathology. CXR: Unchanged cardiomegaly. No gross infiltrates. A/P: 1. Weakness, active. 2. Volume depletion, improving. 3. Hypokalemia, active. 3. Chronic medical problems: Chronic kidney disease, TBI, PAF, CVA, hypertension. PLAN: -replete K. -IVF -PT, OT assessments. -Discharge planning: needs SNF for rehab. Exam Vital Signs (past 8 hours): - 09/09/25 04:32 Temperature 97 F L Pulse Rate 63 Respiratory Rate 15 Blood Pressure 161/80 H Pulse Oximetry 97 Oxygen Flow Rate 0 Oxygen Delivery Method Room Air Oxygen Flow Rate 0 Objective Labs 09/09/25 05:55 09/09/25 05:55 Labs: Laboratory Results - last 24 hr 09/08/25 09/08/25 09/08/25 09:43 10:05 10:36 WBC 9.8 RBC 5.03 Hgb 15.4 Hct 44.2 MCV 87.9 MCH 30.7 MCHC 34.9 RDW 13.1 Plt Count 168 Neut % (Auto) 82.4 H Lymph % (Auto) 5.3 L [place] % (Auto) 9.7 Eos % (Auto) 2.0 Baso % (Auto) 0.6 Neut # (Auto) 8100 H Lymph # (Auto) 500 L [place] # (Auto) 1000 H Eos # (Auto) 200 Baso # (Auto) 100 PT 13.6 H INR 1.2 APTT 26 VBG pH 7.39 VBG pCO2 49.7 VBG pO2 23 L VBG HCO3 30 H VBG Total CO2 29 VBG O2 Saturation 37 L VBG Base Excess 4.0 Sodium 145 Potassium 3.9 Chloride 108 H Carbon Dioxide 28 BUN 29 H Creatinine 1.09 Estimated GFR > 60 BUN/Creatinine Ratio 26.6 H Glucose 138 H POC Whole Bld Glucose 144 H Lactate 1.8 Calcium 11.2 H Total Bilirubin 2.0 H AST 97 H ALT 62 H Alkaline Phosphatase 86 Total Creatine Kinase 372 H Troponin I 0.052 H Total Protein 7.6 Albumin 3.9 Globulin 3.7 Albumin/Globulin Ratio 1.1 TSH 2.31 Free T4 1.85 Urine Color Urine Appearance Urine pH Ur Specific [place] Urine Protein Urine Glucose (UA) Urine Ketones Urine Occult Blood Urine Nitrate Urine Bilirubin Urine Urobilinogen Ur Leukocyte Esterase Urine RBC Urine WBC Ur Squamous Epith Cells Urine Bacteria Ur Culture Indicated? Vol Urine Centrifuged U Opiates 300ng/mL cut Ur Oxycodone Screen Urine Methadone Screen Ur Barbiturates Screen U Tricyclic Antidepress Ur Phencyclidine Scrn Ur Amphetamines Screen U Methamphetamines Scrn Ur MDMA Scrn (Ecstasy) U Benzodiazepines Scrn Urine Cocaine Screen U Marijuana (THC) Screen Urine Specific [place] Ethyl Alcohol < 10 Ur Creatinine 09/08/25 09/08/25 09/08/25 12:44 19:54 19:54 WBC RBC Hgb Hct MCV MCH MCHC RDW Plt Count Neut % (Auto) Lymph % (Auto) [place] % (Auto) Eos % (Auto) Baso % (Auto) Neut # (Auto) Lymph # (Auto) [place] # (Auto) Eos # (Auto) Baso # (Auto) PT INR APTT VBG pH VBG pCO2 VBG pO2 VBG HCO3 VBG Total CO2 VBG O2 Saturation VBG Base Excess Sodium Potassium Chloride Carbon Dioxide BUN Creatinine Estimated GFR BUN/Creatinine Ratio Glucose POC Whole Bld Glucose Lactate Calcium Total Bilirubin AST ALT Alkaline Phosphatase Total Creatine Kinase Troponin I 0.053 H Total Protein Albumin Globulin Albumin/Globulin Ratio TSH Free T4 Urine Color Yellow Urine Appearance Sl cloudy Urine pH 5.5 Normal Ur Specific [place] 1.020 Urine Protein 1+ H Urine Glucose (UA) Negative Urine Ketones Negative Urine Occult Blood Trace-intact Urine Nitrate Negative Urine Bilirubin Negative Urine Urobilinogen 2.0 H Ur Leukocyte Esterase 3+ H Urine RBC 0-1/hpf Urine WBC >100/hpf H Ur Squamous Epith Cells 1-5 /hpf Urine Bacteria Many (>30) H Ur Culture Indicated? Specimen cultured Vol Urine Centrifuged 10ml (spun) U Opiates 300ng/mL cut Positive H Ur Oxycodone Screen Negative Urine Methadone Screen Negative Ur Barbiturates Screen Negative U Tricyclic Antidepress Negative Ur Phencyclidine Scrn Negative Ur Amphetamines Screen Negative U Methamphetamines Scrn Negative Ur MDMA Scrn (Ecstasy) Negative U Benzodiazepines Scrn Negative Urine Cocaine Screen Negative U Marijuana (THC) Screen Negative Urine Specific [place] Normal Ethyl Alcohol Ur Creatinine Normal 09/09/25 05:55 WBC 8.0 RBC 4.15 L Hgb 12.8 L Hct 36.5 L MCV 88.0 MCH 30.8 MCHC 35.0 RDW 13.1 Plt Count 146 L Neut % (Auto) 79.7 H Lymph % (Auto) 8.7 L [place] % (Auto) 7.4 Eos % (Auto) 3.3 Baso % (Auto) 0.9 Neut # (Auto) 6400 Lymph # (Auto) 700 L [place] # (Auto) 600 Eos # (Auto) 300 Baso # (Auto) 100 PT INR APTT VBG pH VBG pCO2 VBG pO2 VBG HCO3 VBG Total CO2 VBG O2 Saturation VBG Base Excess Sodium 140 Potassium 3.2 L Chloride 110 H Carbon Dioxide 26 BUN 28 H Creatinine 0.99 Estimated GFR > 60 BUN/Creatinine Ratio 28.3 H Glucose 151 H POC Whole Bld Glucose Lactate Calcium 9.9 Total Bilirubin 0.8 AST 61 H ALT 53 H Alkaline Phosphatase 76 Total Creatine Kinase Troponin I Total Protein 5.7 L Albumin 2.8 L Globulin 2.9 Albumin/Globulin Ratio 1.0 TSH Free T4 Urine Color Urine Appearance Urine pH Ur Specific [place] Urine Protein Urine Glucose (UA) Urine Ketones Urine Occult Blood Urine Nitrate Urine Bilirubin Urine Urobilinogen Ur Leukocyte Esterase Urine RBC Urine WBC Ur Squamous Epith Cells Urine Bacteria Ur Culture Indicated? Vol Urine Centrifuged U Opiates 300ng/mL cut Ur Oxycodone Screen Urine Methadone Screen Ur Barbiturates Screen U Tricyclic Antidepress Ur Phencyclidine Scrn Ur Amphetamines Screen U Methamphetamines Scrn Ur MDMA Scrn (Ecstasy) U Benzodiazepines Scrn Urine Cocaine Screen U Marijuana (THC) Screen Urine Specific [place] Ethyl Alcohol Ur Creatinine PFSH Medical History (Updated 09/08/25 @ 14:34 by Hever Perez MD) Primary osteoarthritis of both knees Diverticulitis of colon with perforation Chronic kidney disease Fistula of gallbladder Traumatic brain injury Diverticulosis Paroxysmal atrial fibrillation CVA (cerebral vascular accident) Hypertension Closed head injury Surgical History Hx of appendectomy Hx of cholecystectomy History of hemicolectomy H/O exploratory laparotomy Hx of colonoscopy H/O abdominal surgery H/O ileostomy Family History Mother Kidney disease Father No problems noted. Sister Kidney disease Kidney cysts Social History household members: none Smoking Status: Former smoker alcohol intake: current Assessment & Plan Time-Based Coding :: [TOTAL MINUTES] spent with patient and on the chart (including review of chart, obtaining history, exam, reviewing outside data, placing orders, documenting exam and treatment plan, and counseling patient) on [DATE]. Quality VTE Deep Vein Thrombosis/Pulmonary Embolism Present on Admission: No
[2025-09-09 09:12] VITALS: BP 138/74; PULSE 60; RESP 18; TEMP 35.9; O2SAT 97
[2025-09-09] MEDS: DOCUSATE 100 MG CAPSULE PO (11:22)
[2025-09-09] MEDS: POTASSIUM CHLORIDE 20 MEQ TAB 40 MEQ PO ×2 (11:22→15:07)
[2025-09-09] MEDS: LOSARTAN 50 MG TABLET 100 MG PO (11:23)
[2025-09-09] MEDS: ASCORBIC ACID 500 MG TABLET PO (11:23)
[2025-09-09] MEDS: APIXABAN 5 MG TABLET PO ×2 (11:23→20:57)
--- NOTE | 2025-09-09 12:47 | PT.IIE ---
Surgical History (Last Reviewed 04/05/25 @ 15:20 by Sakina Pradhan DO) H/O abdominal surgery H/O exploratory laparotomy H/O ileostomy History of hemicolectomy Hx of appendectomy Hx of cholecystectomy Hx of colonoscopy Medical History (Last Updated 08/25/25 @ 16:08 by Matthew Diana MD) Chronic kidney disease Closed head injury CVA (cerebral vascular accident) Diverticulitis of colon with perforation Diverticulosis Fistula of gallbladder Hypertension Paroxysmal atrial fibrillation Primary osteoarthritis of both knees Traumatic brain injury Physical Therapy Inpatient Evaluation/Re-Eval M1 PT IP Prior Functional Status Start: 09/09/25 12:32 Freq: NEEDED Status: Active Protocol: Document 09/09/25 08:40 SAK (Rec: 09/09/25 12:47 SAK [id number]) Medical Review Prior Functional Status Medical History Yes Reviewed Diet/Fluid Regular Consistency Communication no limitations Mobility and Gait independent with use of cane, reports previously discharge from hospital after CVA with FWW but finds it to difficult to manage opening and closing walker due to left UE weakness Activities of Daily indep Living and IADL's Social History Household Members none Living Arrangements Apartment/Condo Number of Floors ( One Floor Floors) Number of Stairs To elevator Enter/Railing? Home Environment Standard Height Toilet,Tub/Shower Home Equipment Front Wheel Walker,Straight Cane Employment Status Retired M2 PT-IP Current Condition Start: 09/09/25 12:32 Freq: NEEDED Status: Active Protocol: Document 09/09/25 08:40 SAK (Rec: 09/09/25 12:47 SAK [id number]) Physical Therapy Current Condition Current Condition Evaluation Date 09/09/25 Treatment Diagnosis GLF, weakness Onset Date 09/04/25 M3 PT-IP Subjective Start: 09/09/25 12:32 Freq: NEEDED Status: Active Protocol: Document 09/09/25 08:40 SAK (Rec: 09/09/25 12:47 SAK [id number]) Subjective Physical Therapy Visit Type Type Initial Evaluation Visit Start Time 08:40 Visit Stop Time 09:09 Physical Therapy Visit Comments Patient Comments Patient in bed with HOB elevated. Reports he sleeps on couch at home. Willing to work with PT. States he is weak on left side from prior CVA's and that after a fall at home he lay on the ground for several days, was unable to get up. Patient Goals go home Therapy Pain Assessment Pain When Pain Assessed At Rest Pain Present Pain Present Pain Reported Location generalized Intensity 4 Scale Used Numeric (0 - 10) Pain Management Apply Cold,Apply Heat,Distraction,Timing of Activity Techniques with Medications M4 PT-IP Mobility and Gait Start: 09/09/25 12:32 Freq: NEEDED Status: Active Protocol: Document 09/09/25 08:40 [facility] (Rec: 09/09/25 12:47 [facility] [id number]) PT-Bed Mobility Assessment Supine to Sit Supine to Sit Moderate Assistance,Head of Bed Elevated,Bedrails Sit to Supine Sit to Supine Moderate Assistance Scooting Scooting to Edge of Moderate Assistance Bed PT-Transfer Assessment Sit to and From Stand Sit to and from Minimal Assistance Stand Equipment Transfer Assistive Gait Belt,Front Wheeled Walker Device Transfer Ability Level of Assist Minimal Assistance Gait Assessment Gait Gait Assistance Minimum Assistance,1 Person Assist Required: Distance (Feet) 25 Assistive Devices Assistive Device Gait Belt,Front Wheeled Walker Gait Deviations General Gait Pattern Decreased Stride Length,Decreased Feet Clearance,Flexed Trunk Factors Limiting Gait Function Factors Limiting Decreased Activity Tolerance,Decreased Strength Gait Function PT-Balance Assessment Sitting Balance and Reactions Static Sitting Fair Balance Ability Dynamic Sitting Fair Balance Ability Standing Balance and Reactions Static Standing Fair Balance Ability Dynamic Standing Fair Balance Ability Device Used FWW M5 PT-IP Objective Assessments Start: 09/09/25 12:32 Freq: NEEDED Status: Active Protocol: Document 09/09/25 08:40 [facility] (Rec: 09/09/25 12:47 [facility] [id number]) Orientation Orientation/Cognition Level of Alertness Alert Orientation Name,Age,Month,Year,Situation Language Function No Deficits Noted Ability Safety Awareness Understands Safety Issues Memory Description No Deficits Noted Gross Range of Motion Upper Extremity ROM Assessment Within Functional Limits Lower Extremity ROM Assessment Within Functional Limits Strength Comments Strength Comments right 4+/5, left UE 3+/5, left LE 3-/5 hip, 4-/5 knee, 3+/5 ankle Coordination Assessment Gross Coordination Gross Coordination Impaired Assessment Coordination left impaired Comments Sensation Assessment Sensation Gross Sensation Left UE Impaired,Left LE Impaired Sensation Paresthesia Description M7 PT-IP Assessment and Plan Start: 09/09/25 12:32 Freq: NEEDED Status: Active Protocol: Document 09/09/25 08:40 [facility] (Rec: 09/09/25 12:47 [facility] [id number]) PT Summary Assessment and Plan Potential Rehabilitation Good Potential Status of Condition Evolving at Evaluation Summary Impairments Strength,Balance,Bed Mobility,Transfers,Gait Assessment Summary Patient is 79 y/o with history CVA's affecting his left side who fell at home, was unable to get up, and lay on the floor for several days. He has had a decline in all functional mobility skills, balance, and has deficits in his UE and LE strength left greater than right (left weaker due to prior CVA's) Today he required use of a FWW for short distance gait with min assist. Feel he would benefit from rehab prior to discharge home to help him improve all areas of functional mobility skills and strength to allow him to return home safely. Will continue to evaluate progress and discharge needs. Goals Bed Mobility Goal Independent Transfer Goal Independent Gait Goal Independent Gait Distance 150 Days to Meet Goals 10 Frequency of Treatment Frequency Of Once a Day Treatment Treatment Plan Physical Therapy Bed Mobility Training,Transfer Training,Gait Training, Treatment Plan Therapeutic Exercise,Balance Retraining,Discharge Planning Weight Bearing Status Weight Bearing Full Weight Bearing Status Recommendations To Nursing Amount of Assist 1 Person Assist Needed Discharge Recommendations PT Discharge Home Health,SNF Rehab,Acute Rehab,Home vs SNF Recommendations Transportation Needs Private Vehicle,Wheelchair/Cabulance at Discharge
[2025-09-09 13:00] VITALS: BP 138/70; PULSE 61; RESP 16; TEMP 36.2; O2SAT 98
[2025-09-09 17:00] VITALS: BP 133/68; PULSE 62; RESP 16; TEMP 36.1; O2SAT 100
--- NOTE | 2025-09-09 19:51 | PM.PN.1 ---
Exam Vital Signs (past 8 hours): - 09/09/25 13:00 09/09/25 17:00 Temperature 97.2 F L 96.9 F L Pulse Rate 61 62 Respiratory Rate 16 16 Blood Pressure 138/70 133/68 Pulse Oximetry 98 100 Oxygen Flow Rate 0 0 Oxygen Delivery Method Room Air Oxygen Flow Rate 0 Objective Labs 09/09/25 05:55 09/09/25 05:55 Labs: Laboratory Results - last 24 hr 09/08/25 09/08/25 09/09/25 19:54 19:54 05:55 WBC 8.0 RBC 4.15 L Hgb 12.8 L Hct 36.5 L MCV 88.0 MCH 30.8 MCHC 35.0 RDW 13.1 Plt Count 146 L Neut % (Auto) 79.7 H Lymph % (Auto) 8.7 L [place] % (Auto) 7.4 Eos % (Auto) 3.3 Baso % (Auto) 0.9 Neut # (Auto) 6400 Lymph # (Auto) 700 L [place] # (Auto) 600 Eos # (Auto) 300 Baso # (Auto) 100 Sodium 140 Potassium 3.2 L Chloride 110 H Carbon Dioxide 26 BUN 28 H Creatinine 0.99 Estimated GFR > 60 BUN/Creatinine Ratio 28.3 H Glucose 151 H Calcium 9.9 Total Bilirubin 0.8 AST 61 H ALT 53 H Alkaline Phosphatase 76 Total Protein 5.7 L Albumin 2.8 L Globulin 2.9 Albumin/Globulin Ratio 1.0 Urine Color Yellow Urine Appearance Sl cloudy Urine pH 5.5 Normal Ur Specific [place] 1.020 Urine Protein 1+ H Urine Glucose (UA) Negative Urine Ketones Negative Urine Occult Blood Trace-intact Urine Nitrate Negative Urine Bilirubin Negative Urine Urobilinogen 2.0 H Ur Leukocyte Esterase 3+ H Urine RBC 0-1/hpf Urine WBC >100/hpf H Ur Squamous Epith Cells 1-5 /hpf Urine Bacteria Many (>30) H Ur Culture Indicated? Specimen cultured Vol Urine Centrifuged 10ml (spun) U Opiates 300ng/mL cut Positive H Ur Oxycodone Screen Negative Urine Methadone Screen Negative Ur Barbiturates Screen Negative U Tricyclic Antidepress Negative Ur Phencyclidine Scrn Negative Ur Amphetamines Screen Negative U Methamphetamines Scrn Negative Ur MDMA Scrn (Ecstasy) Negative U Benzodiazepines Scrn Negative Urine Cocaine Screen Negative U Marijuana (THC) Screen Negative Urine Specific [place] Normal Ur Creatinine Normal PFSH Medical History (Updated 09/08/25 @ 14:34 by Hever Perez MD) Primary osteoarthritis of both knees Diverticulitis of colon with perforation Chronic kidney disease Fistula of gallbladder Traumatic brain injury Diverticulosis Paroxysmal atrial fibrillation CVA (cerebral vascular accident) Hypertension Closed head injury Surgical History Hx of appendectomy Hx of cholecystectomy History of hemicolectomy H/O exploratory laparotomy Hx of colonoscopy H/O abdominal surgery H/O ileostomy Family History Mother Kidney disease Father No problems noted. Sister Kidney disease Kidney cysts Social History household members: none Smoking Status: Former smoker alcohol intake: current Assessment & Plan Assessment and plan (1) Adult failure to thrive: Status: Acute Plan Urine culture growing Gram Neg Bacilli: ordered IV Rocephin and may switch to oral agent next 24-48 hours based on sensitivity Time-Based Coding :: [TOTAL MINUTES] spent with patient and on the chart (including review of chart, obtaining history, exam, reviewing outside data, placing orders, documenting exam and treatment plan, and counseling patient) on [DATE]. Quality VTE Deep Vein Thrombosis/Pulmonary Embolism Present on Admission: No
[2025-09-09 20:40] VITALS: BP 171/82; PULSE 60; RESP 20; TEMP 36.2; O2SAT 97
[2025-09-09 20:57] VITALS: BP 171/82; PULSE 60
[2025-09-09] MEDS: ATORVASTATIN 20 MG TABLET 40 MG PO (20:57)
[2025-09-10] VITALS (9 sets, daily range): BP systolic 145–184; BP diastolic 56–92; PULSE 60–62; RESP 16–22; TEMP 36–37; O2SAT 96–98
[2025-09-10 05:32] LABS: Add Manual Diff / Slide Review NO; Hematocrit 36.6 % (41-53); Hemoglobin 12.6 g/dL (13.5-17.5); Lymphocytes Absolute Auto 800 /uL (1100-4500); Mean Corpuscular HGB Conc 34.4 % (30-36); Mean Corpuscular Hemoglobin 30.2 PG (26-34); Mean Corpuscular Volume 87.7 fL (80-100); Platelet Count 139 X10^3/uL (150-400)
[2025-09-10 05:42] LABS: Alanine Aminotransferase 47 IU/L (<50); Albumin 2.9 g/dL (3.5-5.0); Albumin Globulin Ratio 1.0 (1.0-2.8); Alkaline Phosphatase 74 U/L (38-126); Blood Urea Nitrogen 27 mg/dL (9-20); Calcium 9.5 mg/dL (8.4-10.2); Carbon Dioxide 23 mmol/L (22-32); Chloride 112 mmol/L (98-107); Estimated Glomerular Filt Rate > 60 mL/min (>60); Globulin 2.9 g/dL (1.7-4.1); Glucose 116 mg/dL (70-99); HEMOLYSIS < 15 (0-50); Potassium 3.9 mmol/L (3.4-5.1); Sodium 141 mmol/L (137-145); Total Protein 5.8 g/dL (6.3-8.2)
--- NOTE | 2025-09-10 08:04 | PM.PN.1 ---
Subjective Subjective Interval history: Course: Ground level fall failure to thrive too weak to get up on the floor of his apartment for an unknown period of days History of present illness: 09/08: 79-year-old male with a history of multiple strokes on Eliquis for secondary prevention began having leg weakness in April of 2025 when his leg would not bear his weight when he got out of the car since then he has become progressively weaker being unable to ambulate. He was at home and fell and remained on the floor greater than 48 hours before help could arrive he was brought into the emergency room for evaluation. Findings in the emergency department significant for slight elevation of CK 372 very slight elevation of troponin 0.052 BNP of 1000 white count of 9.8 with 82% neutrophils EKG shows a ventricularly paced rhythm chest x-ray is of very poor quality and although does not show anything acute is really not interpretable 09/09: Doing well. Ur Cx GNB. IV Ceftriaxone started. S: He remains weak, no new complaints. No pain. He lives alone in an apartment in [place] and apparently was down on the ground for several days before receiving medical assistance. Under alert was called by his 90-year-old sister from [facility] who calls on him to check on him from time to time. O: NAD, alert and oriented. Fluent speech. Lungs are clear, normal rate and effort. Heart is regular, no murmur gallop or rub. Abdomen is soft, non distended. Extremities are free of edema. IMAGING: CTA Head and neck: No severe stenosis or occlusion. Atherosclerosis. ECHO: Technically difficult study. Patient unable to stay awake and compliant with breath-hold. Normal LV size and systolic function. LVEF is 65 to 70%. RV appears dilated in certain views. Biatrial enlargement. Mild tricuspid regurgitation. Ascending aorta measures 3.9 cm. Other findings as below. Head CT: No acute intracranial pathology. CXR: Unchanged cardiomegaly. No gross infiltrates. A/P: 1. Weakness, active. 2. Volume depletion, improving. 3. Hypokalemia, active. 4. UTI, new. 5. Chronic medical problems: Chronic kidney disease, TBI, PAF, CVA, hypertension. PLAN: -IV Ceftriaxone. -replete K as needed. -Stop IVF -PT, OT assessments. -Discharge planning: needs SNF for rehab. Exam Vital Signs (past 8 hours): - 09/10/25 00:55 09/10/25 04:35 Temperature 96.8 F L 97.5 F L Pulse Rate 60 60 Respiratory Rate 18 18 Blood Pressure 182/87 H 163/83 H Pulse Oximetry 97 96 Oxygen Flow Rate 0 2 Oxygen Delivery Method Room Air Oxygen Flow Rate 2 Objective Labs 09/10/25 04:50 09/10/25 04:50 Labs: Laboratory Results - last 24 hr 09/09/25 09/10/25 09/10/25 20:57 04:50 07:52 WBC 8.3 RBC 4.18 L Hgb 12.6 L Hct 36.6 L MCV 87.7 MCH 30.2 MCHC 34.4 RDW 13.2 Plt Count 139 L Neut % (Auto) 77.4 H Lymph % (Auto) 9.7 L Trinity % (Auto) 7.1 Eos % (Auto) 4.7 H Baso % (Auto) 1.1 Neut # (Auto) 6500 Lymph # (Auto) 800 L Trinity # (Auto) 600 Eos # (Auto) 400 Baso # (Auto) 100 Sodium 141 Potassium 3.9 Chloride 112 H Carbon Dioxide 23 BUN 27 H Creatinine 0.99 Estimated GFR > 60 BUN/Creatinine Ratio 27.3 H Glucose 116 H POC Whole Bld Glucose 129 H 113 H Calcium 9.5 Total Bilirubin 0.5 AST 48 ALT 47 Alkaline Phosphatase 74 Total Protein 5.8 L Albumin 2.9 L Globulin 2.9 Albumin/Globulin Ratio 1.0 PFSH Medical History (Updated 09/08/25 @ 14:34 by Hever Perez MD) Primary osteoarthritis of both knees Diverticulitis of colon with perforation Chronic kidney disease Fistula of gallbladder Traumatic brain injury Diverticulosis Paroxysmal atrial fibrillation CVA (cerebral vascular accident) Hypertension Closed head injury Surgical History Hx of appendectomy Hx of cholecystectomy History of hemicolectomy H/O exploratory laparotomy Hx of colonoscopy H/O abdominal surgery H/O ileostomy Family History Mother Kidney disease Father No problems noted. Sister Kidney disease Kidney cysts Social History household members: none Smoking Status: Former smoker alcohol intake: current Assessment & Plan Time-Based Coding :: [TOTAL MINUTES] spent with patient and on the chart (including review of chart, obtaining history, exam, reviewing outside data, placing orders, documenting exam and treatment plan, and counseling patient) on [DATE]. Quality VTE Deep Vein Thrombosis/Pulmonary Embolism Present on Admission: No
[2025-09-10] MEDS: SODIUM CHLORIDE 0.9% 1,000 ML 100 ML IV (08:38)
[2025-09-10] MEDS: ASCORBIC ACID 500 MG TABLET PO (08:38)
[2025-09-10] MEDS: APIXABAN 5 MG TABLET PO ×2 (08:38→22:27)
[2025-09-10] MEDS: LOSARTAN 50 MG TABLET 100 MG PO (08:39)
[2025-09-10] MEDS: ATORVASTATIN 20 MG TABLET 40 MG PO (22:28)
[2025-09-11] VITALS (9 sets, daily range): BP systolic 141–206; BP diastolic 68–104; PULSE 59–67; RESP 15–20; TEMP 36.1–36.6; O2SAT 95–99
[2025-09-11 05:27] LABS: Add Manual Diff / Slide Review NO; Hematocrit 36.0 % (41-53); Hemoglobin 12.6 g/dL (13.5-17.5); Lymphocytes Absolute Auto 900 /uL (1100-4500); Mean Corpuscular HGB Conc 35.0 % (30-36); Mean Corpuscular Hemoglobin 30.7 PG (26-34); Mean Corpuscular Volume 87.7 fL (80-100); Platelet Count 166 X10^3/uL (150-400)
[2025-09-11 05:42] LABS: Alanine Aminotransferase 44 IU/L (<50); Albumin 2.9 g/dL (3.5-5.0); Albumin Globulin Ratio 1.0 (1.0-2.8); Alkaline Phosphatase 75 U/L (38-126); Blood Urea Nitrogen 25 mg/dL (9-20); Calcium 9.6 mg/dL (8.4-10.2); Carbon Dioxide 25 mmol/L (22-32); Chloride 108 mmol/L (98-107); Estimated Glomerular Filt Rate > 60 mL/min (>60); Globulin 2.9 g/dL (1.7-4.1); Glucose 125 mg/dL (70-99); HEMOLYSIS < 15 (0-50); Potassium 4.1 mmol/L (3.4-5.1); Sodium 138 mmol/L (137-145); Total Protein 5.8 g/dL (6.3-8.2)
[2025-09-11] MEDS: APIXABAN 5 MG TABLET PO ×2 (08:23→20:29)
[2025-09-11] MEDS: LOSARTAN 50 MG TABLET 100 MG PO (08:23)
[2025-09-11] MEDS: ASCORBIC ACID 500 MG TABLET PO (08:23)
--- NOTE | 2025-09-11 11:09 | PT-IP ANOTE ---
Pt declined Physical Therapy at this time. He just got finished with a shower with nursing and is too tired. Will check back as time allows.
--- NOTE | 2025-09-11 12:16 | PM.PN.1 ---
Subjective Subjective Interval history: Course: Ground level fall failure to thrive too weak to get up on the floor of his apartment for an unknown period of days 09/08: 79-year-old male with a history of multiple strokes on Eliquis for secondary prevention began having leg weakness in April of 2025 when his leg would not bear his weight when he got out of the car since then he has become progressively weaker being unable to ambulate. He was at home and fell and remained on the floor greater than 48 hours before help could arrive he was brought into the emergency room for evaluation. Findings in the emergency department significant for slight elevation of CK 372 very slight elevation of troponin 0.052 BNP of 1000 white count of 9.8 with 82% neutrophils EKG shows a ventricularly paced rhythm chest x-ray is of very poor quality and although does not show anything acute is really not interpretable 09/09: Doing well. Ur Cx GNB. IV Ceftriaxone started. 09/10: weak but otherwise stable. S: He remains weak, no new complaints. Had a shower. O: T 96.9?, BP 159/68, pulse 64, respiration 18, SaO2 98% 0 L. NAD, alert and oriented. Fluent speech. Lungs are clear, normal rate and effort. Heart is regular, no murmur gallop or rub. Abdomen is soft, non distended. Extremities are free of edema. IMAGING: CTA Head and neck: No severe stenosis or occlusion. Atherosclerosis. ECHO: Technically difficult study. Patient unable to stay awake and compliant with breath-hold. Normal LV size and systolic function. LVEF is 65 to 70%. RV appears dilated in certain views. Biatrial enlargement. Mild tricuspid regurgitation. Ascending aorta measures 3.9 cm. Other findings as below. Head CT: No acute intracranial pathology. CXR: Unchanged cardiomegaly. No gross infiltrates. A/P: 1. Weakness, active. 2. Volume depletion, improving. 3. Hypokalemia, active. 4. UTI, new. 5. Chronic medical problems: Chronic kidney disease, TBI, PAF, CVA, hypertension. PLAN: -IV Ceftriaxone (3-5 days). -replete K as needed. -PT, OT assessments. -Discharge planning: needs SNF for rehab. Waiting for facility and discharge plan. JANELL: TBD. Exam Vital Signs (past 8 hours): - 09/11/25 08:23 09/11/25 08:23 09/11/25 11:00 Temperature 96.9 F L Pulse Rate 67 67 64 Respiratory Rate 18 Blood Pressure 183/83 H 183/83 H 159/68 H Pulse Oximetry 98 Oxygen Flow Rate 0 Oxygen Delivery Method Room Air Oxygen Flow Rate 0 Objective Labs 09/11/25 04:45 09/11/25 04:45 Labs: Laboratory Results - last 24 hr 09/11/25 04:45 WBC 8.8 RBC 4.11 L Hgb 12.6 L Hct 36.0 L MCV 87.7 MCH 30.7 MCHC 35.0 RDW 13.3 Plt Count 166 Neut % (Auto) 81.2 H Lymph % (Auto) 9.7 L Walker % (Auto) 5.5 Eos % (Auto) 3.3 Baso % (Auto) 0.3 Neut # (Auto) 7100 H Lymph # (Auto) 900 L Walker # (Auto) 500 Eos # (Auto) 300 Baso # (Auto) 0 Sodium 138 Potassium 4.1 Chloride 108 H Carbon Dioxide 25 BUN 25 H Creatinine 0.95 Estimated GFR > 60 BUN/Creatinine Ratio 26.3 H Glucose 125 H Calcium 9.6 Total Bilirubin 0.4 AST 38 ALT 44 Alkaline Phosphatase 75 Total Protein 5.8 L Albumin 2.9 L Globulin 2.9 Albumin/Globulin Ratio 1.0 [facility] Medical History (Updated 09/08/25 @ 14:34 by Hever Perez MD) Primary osteoarthritis of both knees Diverticulitis of colon with perforation Chronic kidney disease Fistula of gallbladder Traumatic brain injury Diverticulosis Paroxysmal atrial fibrillation CVA (cerebral vascular accident) Hypertension Closed head injury Surgical History Hx of appendectomy Hx of cholecystectomy History of hemicolectomy H/O exploratory laparotomy Hx of colonoscopy H/O abdominal surgery H/O ileostomy Family History Mother Kidney disease Father No problems noted. Sister Kidney disease Kidney cysts Social History household members: none Smoking Status: Former smoker alcohol intake: current Assessment & Plan Time-Based Coding :: [TOTAL MINUTES] spent with patient and on the chart (including review of chart, obtaining history, exam, reviewing outside data, placing orders, documenting exam and treatment plan, and counseling patient) on [DATE]. Quality VTE Deep Vein Thrombosis/Pulmonary Embolism Present on Admission: No
--- NOTE | 2025-09-11 15:29 | CM.DPC ---
Addendum entered by OWEN Garber 09/11/25 15:42: ADD: Per water hauler, received a call from [facility] stating they will be meeting bedside with pt tomorrow 09/12 as they had received a referral. BF Original Note: DCP Cont: Per MD, pt making improvements and likely stable for discharge once safe d/c plan determined. Per PT Sun, pt below baseline with mobility and 1PA and recommending SNF. Per PT today, pt just had shower with staff and too tired to work with PT when they attempted. SW met bedside with pt and explained role and he confirms he lives in his place alone and denies any local family, friends, or neighbors that could assist. Pt unsure why he no longer has active Medicare or Medicaid and has not attempted to call the numbers provided to him. SW helped him call the closest local [employer] office for Medicare ([place] office [phone]) and had to leave [facility] with his information and call back cell phone number for him and office phone number to try to assist pt with getting information on re-enrollment with Medicare. Inquired about pt's ability to pay privately for caregiver or Respite Stay if pt unsafe for home and pt states he has no finances to pay and is living on a fixed income. NANO attempted to call other [employer] numbers and confirmed closest office is [facility]. Plan: SW to follow closely for further PT for likely plan of home once improved with mobility. Currently no insurance to provide HH or SNF resources. OWEN Garber
--- NOTE | 2025-09-11 15:59 | OT.IP.EVAL ---
Current Diagnoses Adult failure to thrive (09/08/25) Past Medical History (Last Updated 08/25/25 @ 16:08 by Matthew Diana MD) Chronic kidney disease Closed head injury CVA (cerebral vascular accident) Diverticulitis of colon with perforation Diverticulosis Fistula of gallbladder Hypertension Paroxysmal atrial fibrillation Primary osteoarthritis of both knees Traumatic brain injury Surgical History (Last Reviewed 04/05/25 @ 15:20 by Sakina Pradhan DO) H/O abdominal surgery H/O exploratory laparotomy H/O ileostomy History of hemicolectomy Hx of appendectomy Hx of cholecystectomy Hx of colonoscopy Occupational Therapy Inpatient Evaluation/Re-Eval M1 OT IP Prior Functional Status Start: 09/11/25 15:37 Freq: Status: Active Protocol: Document 09/11/25 15:00 PARAG (Rec: 09/11/25 15:58 PARAG [id number]) Medical Review Prior Functional Status Medical History Yes Reviewed Diet/Fluid Regular Consistency Communication no limitations Mobility and Gait independent with use of cane, reports previously discharge from hospital after CVA with FWW but finds it to difficult to manage opening and closing walker due to left UE weakness Activities of Daily Pt reports I with BADLs, driving, and medication mgmt. Living and IADL's Pt reports that he hasn't had much of an appetite recently and isn't making many meals. Pt sleeps on his couch. Social History Household Members none Living Arrangements Apartment/Condo Number of Floors ( 3 or More Floors Floors) Number of Stairs To Pts apt is on the third floor, he takes the elevator up Enter/Railing? and sometimes walks down. He reports that his apartment is studio style and very small. Home Environment Standard Height Toilet,Tub/Shower Home Equipment Front Wheel Walker,Straight Cane Employment Status Retired M2 OT-IP Current Condition Start: 09/11/25 15:37 Freq: Status: Active Protocol: Document 09/11/25 15:00 PARAG (Rec: 09/11/25 15:58 PARAG [id number]) Occupational Therapy Current Condition Current Condition Evaluation Date 09/11/25 Treatment Diagnosis ground level fall, decreased self care Diagnosis Onset Date 09/08/25 M3 OT- IP Subjective and Pain Start: 09/11/25 15:37 Freq: Status: Active Protocol: Document 09/11/25 15:00 PARAG (Rec: 09/11/25 15:58 [facility] [id number]) OT- Subjective Occupational Therapy Visit Type Type Initial Evaluation Visit Start Time 15:00 Visit Stop Time 15:30 Occupational Therapy Visit Comments Patient Comments Pt sitting up in recliner on entrance of OT. Pt was agreeable to participate in skilled OT eval. Patient/Caregiver To get better Goals OT Pain Assessment Pain When Pain Assessed At Rest Pain Present Pain Present Pain Reported Location Bilateral Hip Intensity 5 Back Intensity 8 M4 OT- IP ADL's Start: 09/11/25 15:37 Freq: Status: Active Protocol: Document 09/11/25 15:00 PARAG (Rec: 09/11/25 15:58 [facility] [id number]) OT RBT-Atqg-Mcopxod General Evaluation Self-Feeding Ability Independent Comments OT Self-Feeding Pt reports that he occasionally has difficulty using Comments the L UE to assist in cutting food. OT ADL-Grooming General Evaluation Grooming Ability Standby Assistance Areas Needing Retrieving/Set-up of Grooming Items Assistance OT ADL-Oral Care Comments Oral Care Comments not observed OT ADL-Dressing General Eval Lower Body Dressing Total Assistance Ability Areas Needing Socks Assistance Comments OT Dressing Comments Pt attempted to doff socks by bring leg towards figure 4 position but was unable to get his leg up high enough to successfully reach his sock. OT suggested educating pt on using LB AE for improved I, pt is reluctant, will reassess interest. OT ADL-Toileting Comments OT Toileting not observed Comments OT ADL-Bathing Comments OT Bathing Comments not observed M5 OT- IP IADL's Start: 09/11/25 15:37 Freq: Status: Active Protocol: Document 09/11/25 15:00 PARAG (Rec: 09/11/25 15:58 [facility] [id number]) OT-Instrumental Activities of Daily Living Deficits IADL Deficits No Deficits Identified Home Safety Awareness Awareness of Need Decreased Awareness for Assistance at Home Ability to Problem Able to Problem Solve Solve Emergency Situations Medication Management Medication No Deficits Identified Management Money Management Money Management No Deficits Identified Meal Preparation Meal Preparation would benefit from assist, as pt reports a lack of Comments interest in making his meals, suggest meals on wheels as an option Quantometer Operator Quantometer Operator No Deficits Identified M6 OT- IP Functional Cognition Start: 09/11/25 15:37 Freq: Status: Active Protocol: Document 09/11/25 15:00 [facility] (Rec: 09/11/25 15:58 [facility] [id number]) Cognitive Factors Limiting Selfcare Function Cognitive Ability Level of Alertness Alert Patient Orientation Name,Place,Situation Attention Span Capable of Focused Attention,Capable of Sustained Ability Attention Ability to Follow Able to Follow Multi-Step Commands Commands Memory Description No Deficits Noted Safety Awareness Underestimates Need for Assistance OT- Vision and Hearing OT- Hearing Assessment OT- Hearing WFL Assessment OT- Vision Assessment Visual Acuity WFL,Glasses For Reading M7 OT- IP Mobility and Balance Start: 09/11/25 15:37 Freq: Status: Active Protocol: Document 09/11/25 15:00 [facility] (Rec: 09/11/25 15:58 [facility] [id number]) OT-Transfer Assessment Sit to and From Stand Sit to and from Minimal Assistance Stand Transfers Transfer Ability Minimal Assistance Technique Transfer Destination Chair Transfer Technique Stand Step Pivot Devices Transfer Assistive Gait Belt,Front Wheeled Walker Devices Comments Mobility Comments Pt uses B hands to push up from surface and to reach back for surface, needed assistance to guide L hand to armrest. OT- Gait Assessment Gait Gait Assistance Contact Guard Assist Required: Distance (Feet) 10 Assistive Devices Assistive Device Gait Belt,Front Wheeled Walker Comments Gait Ability amb to sink for sink side ADLs Comments OT- Balance Assessment Sitting Balance and Reactions Static Sitting Fair Balance Ability Dynamic Sitting Fair Balance Ability Standing Balance and Reactions Static Standing Fair Balance Ability Dynamic Standing Fair Balance Ability M8 OT- IP Objective Assessments Start: 09/11/25 15:37 Freq: Status: Active Protocol: Document 09/11/25 15:00 [facility] (Rec: 09/11/25 15:58 [facility] [id number]) OT Gross Range of Motion Upper Extremity Range of Motion Assessment Left Impaired ROM Impairments L: AROM slow and deliberate especially in shoulder girdle due to dysmetria. Note decreased isolated shoulder (~40 deg active and 120 AAROM) and elbow movements. Distal AROM demonstrates better isolated movement in forearm, wrist; but fingers have decreased individual movement as needed for fine prehension. R UE WFL OT Strength Upper Extremity Strength Assessment Left Impaired Shoulder 2+ Elbow 3+ Hand 4 Hand Semi Driver Strength Hand Dominance Right Comments Strength Comments R UE 5/5 OT- Coordination Assessment Comments Coordination able to perform thumb to fingertips B, slow on L due to Comments dysmetria OT Sensation Assessment Comments Summary Comments no sensory deficits noted Edema Edema Present Edema Comments mild edema L dorsal hand M9 OT- IP Assessment and Plan Start: 09/11/25 15:37 Freq: Status: Active Protocol: Document 09/11/25 15:00 PARAG (Rec: 09/11/25 15:58 PARAG [id number]) OT Summary Assessment and Plan Potential Rehabilitation Good Potential Analytic Complexity Moderate at Evaluation Summary OT Impairments Pain,Range of Motion,Strength,Balance,Coordination, Functional Mobility,Self-Feeding,Grooming,Dressing, Toileting,Bathing,Toilet Transfers,Shower Transfers, Activity Tolerance Progress Towards Progressing Toward Goals Goals Assessment Summary Pt is an 79 yo M who had a GLF at home and laid on the floor for >48 hours. Pt has a hx of multiple CVAs and a fall in April out of his SUV that he reports he continues to have B knee pain from. Pt has had little desire to eat and cook and has been skipping his evening meal frequently. OT discussed the importance of good balanced nutrition and offered some suggestions for ways to improve this. Pt verbalized understanding. Pt reports difficulty at baseline with LB dressing, especially socks. Pt presents with decreased functional use of L UE due to previous CVA, decreased BADLs, decreased balance, impaired mobility, muscle weakness, and activity intolerance. Skilled OT services are appropriate to address these deficits and promote return towards PLOF. Recommend SNF vs home with HH Goals Grooming Goal Independent Dressing Goal Independent,Long Handled Shoe Horn,Ship Scraper,Sock Aid Toileting Goal Independent Bathing Goal Independent Toilet Transfer Goal Independent Shower Transfer Goal Independent Days to Meet Goals 10 Frequency of Treatment Other frequency 5x/wk Treatment Plan OT Treatment Plan ADL Training,Functional Mobility,Neuromuscular Re- education,Therapeutic Exercises,Patient/Family Education,Discharge Planning Other Treatment LB AE (if pt is willing), standing ADLs Recommendations and Next Treatment Focus Discharge Recommendations OT Discharge Home Health,Home vs SNF Recommendations Transportation Needs Private Vehicle,Wheelchair/Cabulance at Discharge
[2025-09-11] MEDS: ATORVASTATIN 20 MG TABLET 40 MG PO (20:29)
[2025-09-12] VITALS (11 sets, daily range): BP systolic 135–194; BP diastolic 73–92; PULSE 60–68; RESP 16–22; TEMP 35.9–36.7; O2SAT 97–98
[2025-09-12] MEDS: LOSARTAN 50 MG TABLET 100 MG PO ×2 (00:19→10:55)
--- NOTE | 2025-09-12 09:45 | PT.IPTN ---
Current Diagnoses Adult failure to thrive (09/08/25) Physical Therapy Treatment Note M2 PT-IP Current Condition Start: 09/09/25 12:32 Freq: NEEDED Status: Active Protocol: Document 09/12/25 09:54 LRN (Rec: 09/12/25 10:04 LRN Laptop) Physical Therapy Current Condition Current Condition Evaluation Date 09/09/25 Treatment Diagnosis GLF, weakness Onset Date 09/04/25 M3 PT-IP Subjective Start: 09/09/25 12:32 Freq: NEEDED Status: Active Protocol: Document 09/12/25 09:54 LRN (Rec: 09/12/25 10:04 LRN Laptop) Subjective Physical Therapy Visit Type Type Treatment Note Visit Start Time 09:20 Visit Stop Time 09:45 Physical Therapy Visit Comments Patient Comments Pt resting peacefully in bed with HOB elevated. Pt agreeable to therapy and getting into a chair. Therapy Pain Assessment Pain When Pain Assessed At Rest Location generalized Intensity 0 Scale Used Numeric (0 - 10) M4 PT-IP Mobility and Gait Start: 09/09/25 12:32 Freq: NEEDED Status: Active Protocol: Document 09/12/25 09:54 LRN (Rec: 09/12/25 10:04 LRN Laptop) PT-Bed Mobility Assessment Supine to Sit Supine to Sit Independent,Head of Bed Elevated,Bedrails Scooting Scooting to Edge of Independent Bed PT-Transfer Assessment Sit to and From Stand Sit to and from Minimal Assistance Stand Equipment Transfer Assistive Gait Belt,Front Wheeled Walker Device Transfers Transfer Destination Bedside Commode Gait Assessment Gait Gait Assistance Contact Guard Assist,1 Person Assist Required: Assistive Devices Assistive Device Gait Belt,Front Wheeled Walker Gait Deviations General Gait Pattern Decreased Stride Length,Decreased Feet Clearance,Flexed Trunk Factors Limiting Gait Function Factors Limiting Decreased Activity Tolerance,Decreased Strength Gait Function PT-Balance Assessment Sitting Balance and Reactions Static Sitting Good Balance Ability Dynamic Sitting Fair Balance Ability Standing Balance and Reactions Static Standing Fair Balance Ability Dynamic Standing Fair Balance Ability Device Used FWW M5 PT-IP Objective Assessments Start: 09/09/25 12:32 Freq: NEEDED Status: Active Protocol: Document 09/12/25 09:54 LRN (Rec: 09/12/25 10:04 LRN Laptop) Orientation Orientation/Cognition Level of Alertness Alert Orientation Name Language Function No Deficits Noted Ability Safety Awareness Understands Safety Issues Memory Description No Deficits Noted M6 PT-IP Treatment Start: 09/09/25 12:32 Freq: NEEDED Status: Active Protocol: Document 09/12/25 09:54 LRN (Rec: 09/12/25 10:04 LRN Laptop) Physical Therapy Treatment Exercises Exercises Ankle Pumps,Seated Knee Flexion/Extension Other Treatments Other Treatment Marching in sitting. Performed Pt was left sitting in chair with SUPERVISOR PLEATING present to set pt up with chair alarm and tray table call light. BP 161/71, HR 66, SpO2 97% sitting at EOB prior to gait . M7 PT-IP Assessment and Plan Start: 09/09/25 12:32 Freq: NEEDED Status: Active Protocol: Document 09/12/25 09:54 LRN (Rec: 09/12/25 10:04 LRN Laptop) PT Summary Assessment and Plan Potential Rehabilitation Good Potential Status of Condition Evolving at Evaluation Summary Assessment Summary Pt presents today with improved mobility although slow and still unsteady during transitions. He is mildly uncontrolled with stand > sit transfer. The pt's BP has been high today, but is going down since earlier. Nursing was notified and okayed continuation of therapy with BP 161/71. HR & SpO2 is WNL. Pt still requires assist with transfers and gait for safety and his endurance is low as he tolerates minimal distance for gait (2-3 ft). Recommend pt plan for DC to SNF at this time with ongoing therapy. Goals Bed Mobility Goal Independent Transfer Goal Independent Gait Goal Independent Gait Distance 150 Days to Meet Goals 10 Frequency of Treatment Frequency Of Once a Day Treatment Treatment Plan Physical Therapy Bed Mobility Training,Transfer Training,Gait Training, Treatment Plan Therapeutic Exercise,Balance Retraining,Discharge Planning Weight Bearing Status Weight Bearing Full Weight Bearing Status Recommendations To Nursing Amount of Assist 1 Person Assist Needed Discharge Recommendations PT Discharge SNF Rehab Recommendations Transportation Needs Private Vehicle,Wheelchair/Cabulance at Discharge
[2025-09-12] MEDS: DOCUSATE 100 MG CAPSULE PO ×2 (10:55→20:28)
[2025-09-12] MEDS: ASCORBIC ACID 500 MG TABLET PO (10:56)
[2025-09-12] MEDS: APIXABAN 5 MG TABLET PO ×2 (10:56→20:28)
--- NOTE | 2025-09-12 13:13 | OT.IP.TRT ---
Current Diagnoses Adult failure to thrive (09/08/25) Occupational Therapy Treatment Note M2 OT-IP Current Condition Start: 09/11/25 15:37 Freq: Status: Active Protocol: Document 09/11/25 15:00 JUSTICEKELLIE (Rec: 09/11/25 15:58 [facility] [id number]) Occupational Therapy Current Condition Current Condition Evaluation Date 09/11/25 Treatment Diagnosis ground level fall, decreased self care Diagnosis Onset Date 09/08/25 M3 OT- IP Subjective and Pain Start: 09/11/25 15:37 Freq: Status: Active Protocol: Document 09/12/25 13:06 PARAG (Rec: 09/12/25 13:13 [facility] [id number][facility] OT- Subjective Occupational Therapy Visit Type Type Treatment Note Visit Start Time 12:10 Visit Stop Time 12:30 Occupational Therapy Visit Comments Patient Comments Pt sitting up in recliner on entrance of OT. Pt agreeable to participating in OT. Patient/Caregiver To get better Goals OT Pain Assessment Pain Present Pain Present Denied Pain M4 OT- IP ADL's Start: 09/11/25 15:37 Freq: Status: Active Protocol: Document 09/12/25 13:06 BRETTIFFANYJOANAKELLIE (Rec: 09/12/25 13:13 BRETLARUBY [id number]) OT [id number] Comments OT Self-Feeding not observed Comments OT ADL-Grooming Comments OT Grooming Comments not observed OT ADL-Oral Care Comments Oral Care Comments not observed OT ADL-Dressing General Eval Lower Body Dressing Contact Guard Assistance Ability Areas Needing Underpants/Brief Assistance Comments OT Dressing Comments Pt reports that he had a BM in his brief and needed to be changed. OT educated pt on use of applied behavior science specialist to don pullup style brief. Pt was able to use the applied behavior science specialist to start brief on feet with CGA and pulled up the brief over his hips with CGA (following toileting hygiene) OT ADL-Toileting General Evaluation Toileting Ability Total Assistance Areas Needing Perform Perineal Hygiene Assistance Comments OT Toileting Pt required total A from OT to perform buttocks hygiene Comments . Pt was able to manage his clothing. M5 OT- IP IADL's Start: 09/11/25 15:37 Freq: Status: Active Protocol: Document 09/11/25 15:00 PARAG (Rec: 09/11/25 15:58 [facility] [id number]) OT-Instrumental Activities of Daily Living Deficits IADL Deficits No Deficits Identified Home Safety Awareness Awareness of Need Decreased Awareness for Assistance at Home Ability to Problem Able to Problem Solve Solve Emergency Situations Medication Management Medication No Deficits Identified Management Money Management Money Management No Deficits Identified Meal Preparation Meal Preparation would benefit from assist, as pt reports a lack of Comments interest in making his meals, suggest meals on wheels as an option Ship Purser Ship Purser No Deficits Identified M6 OT- IP Functional Cognition Start: 09/11/25 15:37 Freq: Status: Active Protocol: Document 09/11/25 15:[facility] (Rec: 09/11/25 15:58 [facility] [id number]) Cognitive Factors Limiting Selfcare Function Cognitive Ability Level of Alertness Alert Patient Orientation Name,Place,Situation Attention Span Capable of Focused Attention,Capable of Sustained Ability Attention Ability to Follow Able to Follow Multi-Step Commands Commands Memory Description No Deficits Noted Safety Awareness Underestimates Need for Assistance OT- Vision and Hearing OT- Hearing Assessment OT- Hearing WFL Assessment OT- Vision Assessment Visual Acuity WFL,Glasses For Reading M7 OT- IP Mobility and Balance Start: 09/11/25 15:37 Freq: Status: Active Protocol: Document 09/11/25 15:[address] [facility] (Rec: 09/11/25 15:58 [facility] [id number]) OT-Transfer Assessment Sit to and From Stand Sit to and from Minimal Assistance Stand Transfers Transfer Ability Minimal Assistance Technique Transfer Destination Chair Transfer Technique Stand Step Pivot Devices Transfer Assistive Gait Belt,Front Wheeled Walker Devices Comments Mobility Comments Pt uses B hands to push up from surface and to reach back for surface, needed assistance to guide L hand to armrest. OT- Gait Assessment Gait Gait Assistance Contact Guard Assist Required: Distance (Feet) 10 Assistive Devices Assistive Device Gait Belt,Front Wheeled Walker Comments Gait Ability amb to sink for sink side ADLs Comments OT- Balance Assessment Sitting Balance and Reactions Static Sitting Fair Balance Ability Dynamic Sitting Fair Balance Ability Standing Balance and Reactions Static Standing Fair Balance Ability Dynamic Standing Fair Balance Ability M8 OT- IP Objective Assessments Start: 09/11/25 15:37 Freq: Status: Active Protocol: Document 09/11/25 15:[address] [facility] (Rec: 09/11/25 15:58 [facility] [id number]) OT Gross Range of Motion Upper Extremity Range of Motion Assessment Left Impaired ROM Impairments L: AROM slow and deliberate especially in shoulder girdle due to dysmetria. Note decreased isolated shoulder (~40 deg active and 120 AAROM) and elbow movements. Distal AROM demonstrates better isolated movement in forearm, wrist; but fingers have decreased individual movement as needed for fine prehension. R UE WFL OT Strength Upper Extremity Strength Assessment Left Impaired Shoulder 2+ Elbow 3+ Hand 4 Hand Operations Trainer Strength Hand Dominance Right Comments Strength Comments R UE 5/5 OT- Coordination Assessment Comments Coordination able to perform thumb to fingertips B, slow on L due to Comments dysmetria OT Sensation Assessment Comments Summary Comments no sensory deficits noted Edema Edema Present Edema Comments mild edema L dorsal hand M9 OT- IP Assessment and Plan Start: 09/11/25 15:37 Freq: Status: Active Protocol: Document 09/12/25 13:06 PARAG (Rec: 09/12/25 13:13 PARAG [id number]) OT Summary Assessment and Plan Potential Rehabilitation Good Potential Analytic Complexity Moderate at Evaluation Summary OT Impairments Pain,Range of Motion,Strength,Balance,Coordination, Functional Mobility,Self-Feeding,Grooming,Dressing, Toileting,Bathing,Toilet Transfers,Shower Transfers, Activity Tolerance Progress Towards Progressing Toward Goals Goals Assessment Summary Pt performed sit>stand with min A and stood while OT performed toileting hygiene. Pt stood for several minutes while OT assisted with hygiene. Pts meal arrived while this task was being finished. Pt declined to continue with LB AE education at this time and asked to eat his meal. Pt used applied behavior science specialist for brief with CGA. Pt would benefit from education on sock aid and to encourage increased I with BADLs. Continue to recommend SNF vs home with HH. SNF would be preferable if possible Goals Grooming Goal Independent Dressing Goal Independent,Long Handled Shoe Horn,International Operations Manager,Sock Aid Toileting Goal Independent Bathing Goal Independent Toilet Transfer Goal Independent Shower Transfer Goal Independent Days to Meet Goals 10 Frequency of Treatment Frequency Of Once a Day Treatment Other frequency 5x/wk Treatment Plan OT Treatment Plan ADL Training,Functional Mobility,Neuromuscular Re- education,Therapeutic Exercises,Patient/Family Education,Discharge Planning Other Treatment LB AE (if pt is willing), standing ADLs Recommendations and Next Treatment Focus Discharge Recommendations OT Discharge Home Health,Home vs SNF Recommendations Transportation Needs Private Vehicle,Wheelchair/Cabulance at Discharge
--- NOTE | 2025-09-12 13:27 | CM.DPNOTE ---
Addendum entered by OWEN Chadwick 09/12/25 16:06: DCP Updated: Per APS Cutter And Edge Trimmer, it is confirmed that pt will need to re-apply for both Medicare and Medicaid. His SSI was terminated due to failure to recertify information. He has a small pension of $326.00/monthly. FORM SETTER/DRIVER initiated HCA 18-001, will need to complete financial information with patient and submit via fax as soon as possible. PITA Kim Original Note: DCP Continued: Reviewed EMR and team rounds for pt?s medical status. Per hospitalist, discharge plan unclear due to no insurance and no local supports; pt could be medically cleared soon. Per PT, recommending SNF vs. home with home health. Not a viable option at this time due to no insurance. PT verbalized that pt not safe to discharge home alone at this time. FORM SETTER/DRIVER spoke to [facility] counselor, she is aware that pt received a change notice in July 2025. [facility] counselor recommended that pt call [facility] and inquire of what plan they have been switched to. If they did not have a plan selected for them, they likely have their regular Medicare still. [facility] counselor states she will also forward this case to their Door Patcher for review, will need to follow up on next day. FORM SETTER/DRIVER spoke with [employer] Edge Trimmer, No Garcia (ph# [phone]) who met with patient in the room. She identified that pt did not complete their annual eligibility review and will have to reapply for Medicaid insurance. She states she will remain on patient's case as insurance and dc plans are navigated. FORM SETTER/DRIVER to provide application to patient to complete. Plan: Anticipating remaining in hospital until pt strong enough to discharge home, will be working on obtaining Medicare and/or Medicaid for home health services at the least at discharge. CM Team will continue to follow for coordination of discharge plans. PITA Kim
--- NOTE | 2025-09-12 14:48 | PM.PN.1 ---
Subjective Subjective Date Patient Seen: 09/12/25 Interval history: Ground level fall failure to thrive too weak to get up on the floor of his apartment for an unknown period of days 09/08: 79-year-old male with a history of multiple strokes on Eliquis for secondary prevention began having leg weakness in April of 2025 when his leg would not bear his weight when he got out of the car since then he has become progressively weaker being unable to ambulate. He was at home and fell and remained on the floor greater than 48 hours before help could arrive he was brought into the emergency room for evaluation. Findings in the emergency department significant for slight elevation of CK 372 very slight elevation of troponin 0.052 BNP of 1000 white count of 9.8 with 82% neutrophils EKG shows a ventricularly paced rhythm chest x-ray is of very poor quality and although does not show anything acute is really not interpretable 09/09: Doing well. Ur Cx GNB. IV Ceftriaxone started. 09/10: weak but otherwise stable. 09/11: He remains weak, no new complaints. Had a shower. 09/12: PT assessment consistently concludes that he is not safe for home independence. He has unfortunate insurance issues that are taking several days to workout. His cognitive dysfunction appears to have led to this condition as he currently does not have senior care facility coverage. He is quite confused with memory details during my interaction with him today. His blood pressure is 179/82. Amlodipine will be added to the losartan and carvedilol. NAD, alert and oriented. Fluent speech but is tangential and seems to confabulate when pressed on timing and details of recent events.. Lungs are clear on the right with fine crackles at the left base. Heart is regular, no murmur gallop or rub. Extremities are free of edema. IMAGING: CTA Head and neck: No severe stenosis or occlusion. Atherosclerosis. ECHO: Technically difficult study. Patient unable to stay awake and compliant with breath-hold. Normal LV size and systolic function. LVEF is 65 to 70%. RV appears dilated in certain views. Biatrial enlargement. Mild tricuspid regurgitation. Ascending aorta measures 3.9 cm. Other findings as below. Head CT: No acute intracranial pathology. CXR: Unchanged cardiomegaly. No gross infiltrates. A/P: 1. Weakness, active. 2. Volume depletion, improving. 3. Hypokalemia, active. 4. UTI, new. 5. Chronic medical problems: Chronic kidney disease, TBI, PAF, CVA, hypertension. 6. Memory Loss PLAN: -IV Ceftriaxone (3-5 days). -replete K as needed. -Add Amlodipine, continue Losartan and Carvedilol -PT, OT assessments. -Discharge planning: needs SNF for rehab. Waiting for facility and discharge plan. JANELL: TBD. Exam Vital Signs (past 8 hours): - 09/12/25 08:00 09/12/25 10:55 09/12/25 10:56 Temperature 97.2 F L Pulse Rate 62 62 62 Respiratory Rate 16 Blood Pressure 185/92 H 185/92 H 185/92 H Pulse Oximetry 98 Oxygen Flow Rate 0 09/12/25 12:00 Temperature 96.8 F L Pulse Rate 66 Respiratory Rate 18 Blood Pressure 139/73 Pulse Oximetry 97 Oxygen Flow Rate 0 Oxygen Delivery Method Room Air Oxygen Flow Rate 0 Objective Labs 09/11/25 04:45 09/11/25 04:45 PFS Medical History (Updated 09/08/25 @ 14:34 by Hever Perez MD) Primary osteoarthritis of both knees Diverticulitis of colon with perforation Chronic kidney disease Fistula of gallbladder Traumatic brain injury Diverticulosis Paroxysmal atrial fibrillation CVA (cerebral vascular accident) Hypertension Closed head injury Surgical History Hx of appendectomy Hx of cholecystectomy History of hemicolectomy H/O exploratory laparotomy Hx of colonoscopy H/O abdominal surgery H/O ileostomy Family History Mother Kidney disease Father No problems noted. Sister Kidney disease Kidney cysts Social History household members: none Smoking Status: Former smoker alcohol intake: current Assessment & Plan Time-Based Coding :: [TOTAL MINUTES] spent with patient and on the chart (including review of chart, obtaining history, exam, reviewing outside data, placing orders, documenting exam and treatment plan, and counseling patient) on [DATE]. Quality VTE Deep Vein Thrombosis/Pulmonary Embolism Present on Admission: No
[2025-09-12] MEDS: ATORVASTATIN 20 MG TABLET 40 MG PO (20:27)
[2025-09-13] VITALS (7 sets, daily range): BP systolic 124–180; BP diastolic 73–90; PULSE 59–67; RESP 16–18; TEMP 35.9–36.6; O2SAT 96–100
--- NOTE | 2025-09-13 07:44 | PM.PN.1 ---
Subjective Subjective Interval history: Interval history: Ground level fall failure to thrive too weak to get up on the floor of his apartment for an unknown period of days 09/08: 79-year-old male with a history of multiple strokes on Eliquis for secondary prevention began having leg weakness in April of 2025 when his leg would not bear his weight when he got out of the car since then he has become progressively weaker being unable to ambulate. He was at home and fell and remained on the floor greater than 48 hours before help could arrive he was brought into the emergency room for evaluation. Findings in the emergency department significant for slight elevation of CK 372 very slight elevation of troponin 0.052 BNP of 1000 white count of 9.8 with 82% neutrophils EKG shows a ventricularly paced rhythm chest x-ray is of very poor quality and although does not show anything acute is really not interpretable 09/09: Doing well. Ur Cx GNB. IV Ceftriaxone started. 09/10: weak but otherwise stable. 09/11: He remains weak, no new complaints. Had a shower. 09/12: PT assessment consistently concludes that he is not safe for home independence. He has unfortunate insurance issues that are taking several days to workout. His cognitive dysfunction appears to have led to this condition as he currently does not have [facility] facility coverage. He is quite confused with memory details during my interaction with him today. His blood pressure is 179/82. Amlodipine will be added to the losartan and carvedilol. 09/13: S: No acute complaints, states he was walking to the bathroom. Denies dyspnea. NAD, alert and oriented. Fluent speech but is tangential and seems to confabulate when pressed on timing and details of recent events.. Lungs are clear on the right with fine crackles at the left base. Heart is regular, no murmur gallop or rub. Extremities are free of edema. IMAGING: CTA Head and neck: No severe stenosis or occlusion. Atherosclerosis. ECHO: Technically difficult study. Patient unable to stay awake and compliant with breath-hold. Normal LV size and systolic function. LVEF is 65 to 70%. RV appears dilated in certain views. Biatrial enlargement. Mild tricuspid regurgitation. Ascending aorta measures 3.9 cm. Other findings as below. Head CT: No acute intracranial pathology. CXR: Unchanged cardiomegaly. No gross infiltrates. A/P: 1. Weakness, active. Mild improvement. 2. Volume depletion, resoved. 3. Hypokalemia, improved. 4. UTI, improved. 5. Chronic medical problems: Chronic kidney disease, TBI, PAF, CVA, hypertension. 6. Memory Loss PLAN: -IV Ceftriaxone (3-5 days). -replete K as needed. -Add Amlodipine, continue Losartan and Carvedilol -PT, OT assessments. -Discharge planning: needs SNF for rehab. Waiting for facility and discharge plan. Physical therapy assessment today continues to affirm need for [facility] facility level of care. JANELL: TBD. He appears to have a poor prognosis, family has become quite involved (son is local, mother has POA and is out of state, daughter is a nurse, granddaughter is a physician). The patient does not appear to be able to discharge home and appears to be nearing the end of his life due to his severe liver disease. Exam Vital Signs (past 8 hours): - 09/13/25 00:00 09/13/25 04:28 Temperature 97.8 F 97.3 F L Pulse Rate 67 59 L Respiratory Rate 17 18 Blood Pressure 137/89 148/90 H Pulse Oximetry 98 97 Oxygen Flow Rate 0 0 Oxygen Delivery Method Room Air Oxygen Flow Rate 0 Objective Labs 09/11/25 04:45 09/11/25 04:45 [facility] Medical History (Updated 09/08/25 @ 14:34 by Hever Perez MD) Primary osteoarthritis of both knees Diverticulitis of colon with perforation Chronic kidney disease Fistula of gallbladder Traumatic brain injury Diverticulosis Paroxysmal atrial fibrillation CVA (cerebral vascular accident) Hypertension Closed head injury Surgical History Hx of appendectomy Hx of cholecystectomy History of hemicolectomy H/O exploratory laparotomy Hx of colonoscopy H/O abdominal surgery H/O ileostomy Family History Mother Kidney disease Father No problems noted. Sister Kidney disease Kidney cysts Social History household members: none Smoking Status: Former smoker alcohol intake: current Assessment & Plan Time-Based Coding :: [TOTAL MINUTES] spent with patient and on the chart (including review of chart, obtaining history, exam, reviewing outside data, placing orders, documenting exam and treatment plan, and counseling patient) on [DATE]. Quality VTE Deep Vein Thrombosis/Pulmonary Embolism Present on Admission: No
[2025-09-13] MEDS: ASCORBIC ACID 500 MG TABLET PO (08:44)
[2025-09-13] MEDS: APIXABAN 5 MG TABLET PO ×2 (08:44→20:14)
[2025-09-13] MEDS: LOSARTAN 50 MG TABLET 100 MG PO (08:44)
--- NOTE | 2025-09-13 10:17 | OT.IP.TRT ---
Current Diagnoses Adult failure to thrive (09/08/25) Occupational Therapy Treatment Note M2 OT-IP Current Condition Start: 09/11/25 15:37 Freq: Status: Active Protocol: Document 09/11/25 15:00 BRETWAJOANAKELLIE (Rec: 09/11/25 15:58 [facility] [id number]) Occupational Therapy Current Condition Current Condition Evaluation Date 09/11/25 Treatment Diagnosis ground level fall, decreased self care Diagnosis Onset Date 09/08/25 M3 OT- IP Subjective and Pain Start: 09/11/25 15:37 Freq: Status: Active Protocol: Document 09/13/25 10:02 BRETTIFFANYJOANAKELLIE (Rec: 09/13/25 10:17 [facility] [id number]) OT- Subjective Occupational Therapy Visit Type Type Treatment Note Visit Start Time 09:25 Visit Stop Time 10:00 Occupational Therapy Visit Comments Patient Comments Pt was sitting EOB on entrance of OT and agreeable to participating in skilled OT services. Pt declined a shower at this time but agreed to participate in sink side ADLs and cognitive assessment. Patient/Caregiver To get better Goals OT Pain Assessment Pain Present Pain Present Allowed to Sleep M4 OT- IP ADL's Start: 09/11/25 15:37 Freq: Status: Active Protocol: Document 09/13/25 10:02 JUSTICEKELLIE (Rec: 09/13/25 10:17 [facility] [id number]) OT UXP-Hvio-Mgourhs Comments OT Self-Feeding not observed Comments OT ADL-Grooming General Evaluation Grooming Ability Standby Assistance Areas Needing Retrieving/Set-up of Grooming Items Assistance Comments OT Grooming Comments Pt groomed his hair sink side on set up of items. Pt stands with bent knees, flexed hips, and forward head increasing his risk for falls. Pt was unable to straighten his LEs on vcs. OT ADL-Oral Care General Eval Oral Care Ability Standby Assistance Comments Oral Care Comments Pt performed standing sink side, again with bent knees, flexed hips, and forward head. Pt keeps 1 hand on the counter for support as possible. OT ADL-Dressing General Eval Lower Body Dressing Contact Guard Assistance Ability Areas Needing Underpants/Brief Assistance Comments OT Dressing Comments Pt declined using mover helper for LB dressing. Pt is able to get his brief started on both LEs by bending forward and using UE to lift and direct LEs. Pt was able to do this safely with CGA for balance when pulling up over his hips OT ADL-Toileting General Evaluation Toileting Ability Contact Guard Assistance Comments OT Toileting Pt was able to manage clothing and to perform his Comments hygiene needs on set up of wet wipes. Pt stands to perform hygiene and as he stands his forward flexed posture becomes more severe. This presents a fall concern. OT ADL-Bathing Comments OT Bathing Comments not observed M5 OT- IP IADL's Start: 09/11/25 15:37 Freq: Status: Active Protocol: Document 09/11/25 15:00 [facility] (Rec: 09/11/25 15:58 [facility] [id number]) OT-Instrumental Activities of Daily Living Deficits IADL Deficits No Deficits Identified Home Safety Awareness Awareness of Need Decreased Awareness for Assistance at Home Ability to Problem Able to Problem Solve Solve Emergency Situations Medication Management Medication No Deficits Identified Management Money Management Money Management No Deficits Identified Meal Preparation Meal Preparation would benefit from assist, as pt reports a lack of Comments interest in making his meals, suggest meals on wheels as an option Director Hr Communications Director Hr Communications No Deficits Identified M6 OT- IP Functional Cognition Start: 09/11/25 15:37 Freq: Status: Active Protocol: Document 09/13/25 10:02 BRETWARUBY (Rec: 09/13/25 10:17 [facility] [id number]) Cognitive Factors Limiting Selfcare Function Cognitive Ability Level of Alertness Alert Patient Orientation Name,Place,Situation Attention Span Capable of Focused Attention,Capable of Sustained Ability Attention Ability to Follow Able to Follow Multi-Step Commands Commands Memory Description No Deficits Noted Safety Awareness Underestimates Need for Assistance Problem Solving Needs Assist to Identify Solutions Ability Cognitive Tests SLUMS Pt scored 25/30 which demonstrates mild neurocognitive disorder. Pt was able to state 13 animals in 60 seconds , recall 2/5 objects after short time, and was unable to state 4 digit number backwards. Cognitive Comments Cognitive Assessment Pt continues to minimize deficits. Comments OT- Vision and Hearing OT- Hearing Assessment OT- Hearing WFL Assessment OT- Vision Assessment Visual Acuity WFL,Glasses For Reading M7 OT- IP Mobility and Balance Start: 09/11/25 15:37 Freq: Status: Active Protocol: Document 09/13/25 10:02 PARAG (Rec: 09/13/25 10:17 [facility] [id number]) OT-Transfer Assessment Sit to and From Stand Sit to and from Contact Guard Assistance Stand Transfers Transfer Ability Contact Guard Assistance Technique Transfer Destination Chair,Toilet Transfer Technique Stand Step Pivot Devices Transfer Assistive Gait Belt,Front Wheeled Walker Devices Comments Mobility Comments Pt did not need vcs to use UE and did not need assist guiding L UE toda. OT- Gait Assessment Gait Gait Assistance Standby Assistance Required: Distance (Feet) 20 Assistive Devices Assistive Device Gait Belt,Front Wheeled Walker Comments Gait Ability Pt amb to sink and toilet for BADLs Comments OT- Balance Assessment Sitting Balance and Reactions Static Sitting Good Balance Ability Dynamic Sitting Fair Balance Ability Standing Balance and Reactions Static Standing Fair Balance Ability Dynamic Standing Fair Balance Ability M8 OT- IP Objective Assessments Start: 09/11/25 15:37 Freq: Status: Active Protocol: Document 09/11/25 15:00 BRETWAJOANASIERRA [place]CS[place] (Rec: 09/11/25 15:58 [facility] [id number]) OT Gross Range of Motion Upper Extremity Range of Motion Assessment Left Impaired ROM Impairments L: AROM slow and deliberate especially in shoulder girdle due to dysmetria. Note decreased isolated shoulder (~40 deg active and 120 AAROM) and elbow movements. Distal AROM demonstrates better isolated movement in forearm, wrist; but fingers have decreased individual movement as needed for fine prehension. R UE WFL OT Strength Upper Extremity Strength Assessment Left Impaired Shoulder 2+ Elbow 3+ Hand 4 Hand Radiation / Chemistry Technician Strength Hand Dominance Right Comments Strength Comments R UE 5/5 OT- Coordination Assessment Comments Coordination able to perform thumb to fingertips B, slow on L due to Comments dysmetria OT Sensation Assessment Comments Summary Comments no sensory deficits noted Edema Edema Present Edema Comments mild edema L dorsal hand M9 OT- IP Assessment and Plan Start: 09/11/25 15:37 Freq: Status: Active Protocol: Document 09/13/25 10:02 [facility] (Rec: 09/13/25 10:17 [facility] [id number]) OT Summary Assessment and Plan Potential Rehabilitation Good Potential Analytic Complexity Moderate at Evaluation Summary OT Impairments Pain,Range of Motion,Strength,Balance,Coordination, Functional Mobility,Self-Feeding,Grooming,Dressing, Toileting,Bathing,Toilet Transfers,Shower Transfers, Activity Tolerance Progress Towards Progressing Toward Goals Goals Assessment Summary Pt demonstrates improvements in functional mobility performing with CGA today. Pt demonstrated sink side ADLs with SBA and toileting with CGA. Pt dons brief with CGA. Pt stands with forward flexed posture that increases with prolonged stands creating an increased fall risk. Cognitive SLUMS assessment performed, pt scored 25/30 which demonstrates a mild neurocognitive disorder. Pt left up in recliner with all needs met and in reach. Pt continues to be appropriate for skilled OT services cont per POC. Continue to recommend SNF vs home with HH. SNF would be preferable if possible. Goals Grooming Goal Independent Dressing Goal Independent,Long Handled Shoe Horn,Surgeon'S Assistant,Sock Aid Toileting Goal Independent Bathing Goal Independent Toilet Transfer Goal Independent Shower Transfer Goal Independent Days to Meet Goals 10 Frequency of Treatment Frequency Of Once a Day Treatment Other frequency 5x/wk Treatment Plan OT Treatment Plan ADL Training,Functional Mobility,Neuromuscular Re- education,Therapeutic Exercises,Patient/Family Education,Discharge Planning Other Treatment standing ADLs, shower Recommendations and Next Treatment Focus Discharge Recommendations OT Discharge Home Health,Home vs SNF Recommendations Transportation Needs Private Vehicle,Wheelchair/Cabulance at Discharge
--- NOTE | 2025-09-13 12:10 | PT.IPTN ---
Current Diagnoses Adult failure to thrive (09/08/25) Physical Therapy Treatment Note M2 PT-IP Current Condition Start: 09/09/25 12:32 Freq: NEEDED Status: Active Protocol: Document 09/12/25 09:54 LRN (Rec: 09/12/25 10:04 LRN Laptop) Physical Therapy Current Condition Current Condition Evaluation Date 09/09/25 Treatment Diagnosis GLF, weakness Onset Date 09/04/25 M3 PT-IP Subjective Start: 09/09/25 12:32 Freq: NEEDED Status: Active Protocol: Document 09/13/25 13:15 NW (Rec: 09/13/25 13:23 NW [id number]) Subjective Physical Therapy Visit Type Type Treatment Note Visit Start Time 11:54 Visit Stop Time 12:10 Physical Therapy Visit Comments Patient Comments Pt resting in bed side chair with chair alarm on. Patient Goals go home. Therapy Pain Assessment Pain When Pain Assessed At Rest Location generalized Intensity 0 Scale Used Numeric (0 - 10) M4 PT-IP Mobility and Gait Start: 09/09/25 12:32 Freq: NEEDED Status: Active Protocol: Document 09/13/25 13:15 NW (Rec: 09/13/25 13:23 NW [id number]) PT-Transfer Assessment Equipment Transfer Assistive Gait Belt,Front Wheeled Walker Device Transfers Transfer Destination Chair Gait Assessment Gait Gait Assistance Contact Guard Assist,1 Person Assist Required: Distance (Feet) 15 Assistive Devices Assistive Device Gait Belt,Front Wheeled Walker Gait Deviations General Gait Pattern Decreased Stride Length,Decreased Feet Clearance,Flexed Trunk Factors Limiting Gait Function Factors Limiting Decreased Activity Tolerance,Decreased Strength Gait Function Comments Gait Comments Reduced foot clearance with RLE, becomes unsteady with turning requires Bette to maintain upright. PT-Balance Assessment Sitting Balance and Reactions Static Sitting Good Balance Ability Dynamic Sitting Fair Balance Ability Standing Balance and Reactions Static Standing Fair Balance Ability Dynamic Standing Fair Balance Ability Device Used FWW M5 PT-IP Objective Assessments Start: 09/09/25 12:32 Freq: NEEDED Status: Active Protocol: Document 09/12/25 09:54 LRN (Rec: 09/12/25 10:04 LRN Laptop) Orientation Orientation/Cognition Level of Alertness Alert Orientation Name Language Function No Deficits Noted Ability Safety Awareness Understands Safety Issues Memory Description No Deficits Noted M6 PT-IP Treatment Start: 09/09/25 12:32 Freq: NEEDED Status: Active Protocol: Document 09/12/25 09:54 LRN (Rec: 09/12/25 10:04 LRN Laptop) Physical Therapy Treatment Exercises Exercises Ankle Pumps,Seated Knee Flexion/Extension Other Treatments Other Treatment Marching in sitting. Performed Pt was left sitting in chair with ACTIVE DIRECTORY ADMINISTRATOR present to set pt up with chair alarm and tray table call light. BP 161/71, HR 66, SpO2 97% sitting at EOB prior to gait . M7 PT-IP Assessment and Plan Start: 09/09/25 12:32 Freq: NEEDED Status: Active Protocol: Document 09/13/25 13:15 NW (Rec: 09/13/25 13:23 NW [id number]) PT Summary Assessment and Plan Potential Rehabilitation Good Potential Status of Condition Evolving at Evaluation Summary Impairments Strength,Balance,Bed Mobility,Transfers,Gait Assessment Summary Pt has shorter session today secondary to insurance company calling in session. Pt requires Bette with FWW to transfer out of bed side chair and Bette to maintain balance with turning during gait of 25 ft in single bout. Pt has within normal limits of BP of 125/75 with HR of 91 at start of session and is returned to bed side chair with chair alarm in place. Continue to recommend SNF upon discharge. Goals Bed Mobility Goal Independent Transfer Goal Independent Gait Goal Independent Gait Distance 150 Days to Meet Goals 10 Frequency of Treatment Frequency Of Once a Day Treatment Treatment Plan Physical Therapy Bed Mobility Training,Transfer Training,Gait Training, Treatment Plan Therapeutic Exercise,Balance Retraining,Discharge Planning Weight Bearing Status Weight Bearing Full Weight Bearing Status Recommendations To Nursing Amount of Assist 1 Person Assist Needed Discharge Recommendations PT Discharge SNF Rehab Recommendations Transportation Needs Private Vehicle,Wheelchair/Cabulance at Discharge
[2025-09-13] MEDS: ATORVASTATIN 20 MG TABLET 40 MG PO (20:14)
[2025-09-14 06:30] LABS: Add Manual Diff / Slide Review NO; Hematocrit 39.9 % (41-53); Hemoglobin 13.7 g/dL (13.5-17.5); Lymphocytes Absolute Auto 1100 /uL (1100-4500); Mean Corpuscular HGB Conc 34.5 % (30-36); Mean Corpuscular Hemoglobin 30.1 PG (26-34); Mean Corpuscular Volume 87.3 fL (80-100); Platelet Count 198 X10^3/uL (150-400)
[2025-09-14 06:42] LABS: Blood Urea Nitrogen 27 mg/dL (9-20); Calcium 10.2 mg/dL (8.4-10.2); Carbon Dioxide 28 mmol/L (22-32); Chloride 105 mmol/L (98-107); Estimated Glomerular Filt Rate > 60 mL/min (>60); Glucose 121 mg/dL (70-99); HEMOLYSIS < 15 (0-50); Potassium 4.2 mmol/L (3.4-5.1); Sodium 139 mmol/L (137-145)
[2025-09-14] MEDS: ASCORBIC ACID 500 MG TABLET PO (09:07)
[2025-09-14] MEDS: LOSARTAN 50 MG TABLET 100 MG PO (09:07)
[2025-09-14] MEDS: APIXABAN 5 MG TABLET PO ×2 (09:07→20:40)
--- NOTE | 2025-09-14 11:17 | CM.DPC ---
Addendum entered by OWEN Garber 09/14/25 14:13: ADD: SW met with pt and confirmed he has a cane but pt thinks its likely in his home somewhere and confirms he does not have a FWW, no insurance at this time to be able to issue him one through insurance. Pt states he has no stairs to get into his place, there is an elevator. NANO called pt's friend Lowell back and she confirms they would be willing to go to [facility] tomorrow Thursday to get loaner FWW for pt to use at d/c tomorrow. They may be able to provide transport home pending time. BF Original Note: DCP Home Planning: Per MD, pt is medically stable to d/c once safe discharge plan secured, likely tomorrow 09/15. Per PT, pt slowly improving and was CGA to 1PA with FWW 25 ft, still recommending SNF. SW met bedside with pt and explained role and he states he is under the impression that he will discharge home today once MD gets him a ride home which is a block and a half away from the hospital. SW presented the partially completed Medicaid health care application and pt was able to confirm he no longer gets social security and only has income once a month from [place] and then money in the bank that is my sister's, who is 90 yrs old and I send her money every month as she is having a lot of health issues. Pt agreeable to provide the information on the application and signed the application. Faxed to [employer] along with Expedited form to [facility] and provided original application back to patient. 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 Difficult for FWW in his apt for mobility. Discussed community resources in place including APS and [facility] [employer] referral made and Lowell and her are willing to check on pt daily after discharge and make sure he is eating and taking his medications etc. But their son just arrived from [place] and they do not have ability to allow pt to stay with them at d/c. OWEN Garber
[2025-09-14 11:55] VITALS: BP 120/60; PULSE 63; RESP 18; TEMP 36.3; O2SAT 98
--- NOTE | 2025-09-14 13:45 | P.PN_ITS ---
Subjective Subjective Interval history: Ground level fall failure to thrive too weak to get up on the floor of his apartment for an unknown period of days 09/08: 79-year-old male with a history of multiple strokes on Eliquis for secondary prevention began having leg weakness in April of 2025 when his leg would not bear his weight when he got out of the car since then he has become progressively weaker being unable to ambulate. He was at home and fell and remained on the floor greater than 48 hours before help could arrive he was brought into the emergency room for evaluation. Findings in the emergency department significant for slight elevation of CK 372 very slight elevation of troponin 0.052 BNP of 1000 white count of 9.8 with 82% neutrophils EKG shows a ventricularly paced rhythm chest x-ray is of very poor quality and although does not show anything acute is really not interpretable 09/09: Doing well. Ur Cx GNB. IV Ceftriaxone started. 09/10: weak but otherwise stable. 09/11: He remains weak, no new complaints. Had a shower. 09/12: PT assessment consistently concludes that he is not safe for home independence. He has unfortunate insurance issues that are taking several days to workout. His cognitive dysfunction appears to have led to this condition as he currently does not have shelter facility coverage. He is quite confused with memory details during my interaction with him today. His blood pressure is 179/82. Amlodipine will be added to the losartan and carvedilol. 09/13: Improved performance with physical therapy. S: No acute complaints, better performance with physical therapy and transfers. NAD, alert and oriented. Fluent speech but is tangential and seems to confabulate when pressed on timing and details of recent events.. Lungs are clear. Heart is regular, no murmur gallop or rub. Extremities are free of edema. IMAGING: CTA Head and neck: No severe stenosis or occlusion. Atherosclerosis. ECHO: Technically difficult study. Patient unable to stay awake and compliant with breath-hold. Normal LV size and systolic function. LVEF is 65 to 70%. RV appears dilated in certain views. Biatrial enlargement. Mild tricuspid regurgitation. Ascending aorta measures 3.9 cm. Other findings as below. Head CT: No acute intracranial pathology. CXR: Unchanged cardiomegaly. No gross infiltrates. A/P: 1. Weakness, active. Much improved. 2. Volume depletion, resolved. 3. Hypokalemia, improved. 4. UTI, improved. 5. Chronic medical problems: Chronic kidney disease, TBI, PAF, CVA, hypertension. 6. Memory Loss PLAN: -he was done much better with physical therapy and now is able to discharge directly home, with plans for September 15. -he can likely stop antibiotics at the time of discharge, short course with ceftriaxone. -he has assistive walking devices at home. He does live alone in [place]. Discharge planning has helped arrange for a friend to pick him up. Exam Vital Signs (past 8 hours): - 09/14/25 11:55 Temperature 97.3 F L Pulse Rate 63 Respiratory Rate 18 Blood Pressure 120/60 Pulse Oximetry 98 Oxygen Delivery Method Room Air Oxygen Flow Rate 0 Objective Labs 09/14/25 05:40 09/14/25 05:40 Labs: Laboratory Results - last 24 hr 09/14/25 05:40 WBC 7.4 RBC 4.57 Hgb 13.7 Hct 39.9 L MCV 87.3 MCH 30.1 MCHC 34.5 RDW 13.1 Plt Count 198 Neut % (Auto) 73.0 Lymph % (Auto) 14.7 L [place] % (Auto) 6.2 Eos % (Auto) 3.3 Baso % (Auto) 2.8 H Neut # (Auto) 5400 Lymph # (Auto) 1100 [place] # (Auto) 500 Eos # (Auto) 200 Baso # (Auto) 200 H Sodium 139 Potassium 4.2 Chloride 105 Carbon Dioxide 28 BUN 27 H Creatinine 0.97 Estimated GFR > 60 BUN/Creatinine Ratio 27.8 H Glucose 121 H Calcium 10.2 PFSH Medical History (Updated 09/08/25 @ 14:34 by Hever Perez MD) Primary osteoarthritis of both knees Diverticulitis of colon with perforation Chronic kidney disease Fistula of gallbladder Traumatic brain injury Diverticulosis Paroxysmal atrial fibrillation CVA (cerebral vascular accident) Hypertension Closed head injury Surgical History Hx of appendectomy Hx of cholecystectomy History of hemicolectomy H/O exploratory laparotomy Hx of colonoscopy H/O abdominal surgery H/O ileostomy Family History Mother Kidney disease Father No problems noted. Sister Kidney disease Kidney cysts Social History household members: none Smoking Status: Former smoker alcohol intake: current Assessment & Plan Time-Based Coding :: [TOTAL MINUTES] spent with patient and on the chart (including review of chart, obtaining history, exam, reviewing outside data, placing orders, documenting exam and treatment plan, and counseling patient) on [DATE]. Quality VTE Deep Vein Thrombosis/Pulmonary Embolism Present on Admission: No
--- NOTE | 2025-09-14 14:35 | PT.IPTN ---
Current Diagnoses Adult failure to thrive (09/08/25) Physical Therapy Treatment Note M2 PT-IP Current Condition Start: 09/09/25 12:32 Freq: NEEDED Status: Active Protocol: Document 09/12/25 09:54 LRN (Rec: 09/12/25 10:04 LRN Laptop) Physical Therapy Current Condition Current Condition Evaluation Date 09/09/25 Treatment Diagnosis GLF, weakness Onset Date 09/04/25 M3 PT-IP Subjective Start: 09/09/25 12:32 Freq: NEEDED Status: Active Protocol: Document 09/14/25 16:57 NW (Rec: 09/14/25 17:06 NW [id number]) Subjective Physical Therapy Visit Type Type Treatment Note Visit Start Time 14:07 Visit Stop Time 14:35 Physical Therapy Visit Comments Patient Comments Pt states that they are sending him home tomorrow. He is found sitting edge of bed trying to get up. Patient Goals To go home. M4 PT-IP Mobility and Gait Start: 09/09/25 12:32 Freq: NEEDED Status: Active Protocol: Document 09/14/25 16:57 NW (Rec: 09/14/25 17:06 NW [id number]) PT-Transfer Assessment Sit to and From Stand Sit to and from Contact Guard Assistance Stand Equipment Transfer Assistive Gait Belt,Front Wheeled Walker Device Transfers Transfer Destination Chair Transfer Technique Stand Step Pivot Transfer Ability Level of Assist Contact Guard Assistance Comments Mobility Comments Improved power production as pt is able to perform 4 STS throughout session with FWW. Gait Assessment Gait Gait Assistance Contact Guard Assist Required: Distance (Feet) 120 Assistive Devices Assistive Device Gait Belt,Front Wheeled Walker Gait Deviations General Gait Pattern Antalgic,Decreased Stride Length,Decreased Feet Clearance,Flexed Trunk,Step-to Gait Factors Limiting Gait Function Factors Limiting Decreased Strength,Poor Balance,Poor Safety Awareness Gait Function Comments Gait Comments Ambulated 120 ft over 4 equal bouts within room with seated rest breaks of 1-2 minutes between. Upon last attempt pt is fatigued and has decreased foot clearance . PT-Balance Assessment Sitting Balance and Reactions Static Sitting Good Balance Ability Dynamic Sitting Fair Balance Ability Standing Balance and Reactions Static Standing Fair Balance Ability Dynamic Standing Fair Balance Ability Device Used FWW Functional Assessments Other Functional Tests Standing tolerance > 1 minute stationary x 1 trial with Performed FWW. M5 PT-IP Objective Assessments Start: 09/09/25 12:32 Freq: NEEDED Status: Active Protocol: Document 09/12/25 09:54 LRN (Rec: 09/12/25 10:04 LRN Laptop) Orientation Orientation/Cognition Level of Alertness Alert Orientation Name Language Function No Deficits Noted Ability Safety Awareness Understands Safety Issues Memory Description No Deficits Noted M6 PT-IP Treatment Start: 09/09/25 12:32 Freq: NEEDED Status: Active Protocol: Document 09/14/25 16:57 NW (Rec: 09/14/25 17:06 NW [id number]) Physical Therapy Treatment Other Treatments Other Treatment Education on use of FWW upon discharge secondary to Performed amount of UE support required with transfers and gait. M7 PT-IP Assessment and Plan Start: 09/09/25 12:32 Freq: NEEDED Status: Active Protocol: Document 09/14/25 16:57 NW (Rec: 09/14/25 17:06 NW [id number]) PT Summary Assessment and Plan Potential Rehabilitation Good Potential Status of Condition Evolving at Evaluation Summary Impairments Strength,Balance,Bed Mobility,Transfers,Gait Assessment Summary Pt demonstrates increased activity tolerance today and is able to ambulate 120 ft with FWW at [facility] over 4 equal attempts throughout session. Improved power production and eccentric control with transfers with reduction in assistance. Vitals remain in within normal limits throughout session. Due to pt living alone with friend support recommending SNF upon discharge as pt still demonstrates generalized weakness and reduction in activity tolerance and is not safe to return to prior living arrangement. Goals Bed Mobility Goal Independent Transfer Goal Independent Gait Goal Independent Gait Distance 150 Days to Meet Goals 10 Frequency of Treatment Frequency Of Once a Day Treatment Treatment Plan Physical Therapy Bed Mobility Training,Transfer Training,Gait Training, Treatment Plan Therapeutic Exercise,Balance Retraining,Discharge Planning Precautions Other Precautions falls risk Weight Bearing Status Weight Bearing Full Weight Bearing Status Recommendations To Nursing Amount of Assist 1 Person Assist Needed Discharge Recommendations PT Discharge SNF Rehab Recommendations Transportation Needs Private Vehicle,Wheelchair/Cabulance at Discharge
[2025-09-14 20:00] VITALS: BP 165/78; PULSE 60; RESP 18; TEMP 36.1; O2SAT 98
[2025-09-14 20:40] VITALS: BP 165/78
[2025-09-14] MEDS: ATORVASTATIN 20 MG TABLET 40 MG PO (20:40)
[2025-09-15 08:52] VITALS: BP 192/75; PULSE 60; RESP 16; TEMP 36.6; O2SAT 95
[2025-09-15 09:07] VITALS: BP 192/75
[2025-09-15] MEDS: LOSARTAN 50 MG TABLET 100 MG PO (09:07)
[2025-09-15] MEDS: DOCUSATE 100 MG CAPSULE PO (09:07)
[2025-09-15] MEDS: APIXABAN 5 MG TABLET PO (09:07)
[2025-09-15] MEDS: ASCORBIC ACID 500 MG TABLET PO (09:08)
--- NOTE | 2025-09-15 09:10 | PM.DS.1 ---
History of Present Illness History of Present Illness Chief complaint: GLF down 5 days Narrative: HPI 79-year-old male with a history of prior strokes, chronic kidney disease, hypertension, PAF who had a ground level fall at home and was too weak to get up off the floor for an unknown period of time. He reports that he began having leg weakness in April of 2025 and since that time he has become progressively weaker and unable to ambulate. He thinks he was on the floor for over 48 hours. And was brought to the emergency room. Findings in the emergency department significant for slight elevation of CK 372, very slight elevation of troponin 0.052, BNP of 1000, white count of 9.8 with 82% neutrophils. EKG shows a ventricularly paced rhythm, chest x-ray is of very poor quality and although does not show anything acute is really not interpretable. The patient has slowly improve with management of the UTI and his strength has improved. Initial PT assessment on 09/12 concluded that the patient was not safe for home independent. He has unfortunate insurance issues and does not have coverage for long term facility. His cognitive dysfunction appears to have led to this condition as he currently does not have long term facility coverage. Subjective Vitals reviewed and notable only for hypertension Alert and oriented, no acute distress Regular rate and rhythm, S1 and S2 without murmurs Clear to auscultation Soft, nontender, nondistended, positive bowel sounds Warm without edema Pleasant and cooperative Neuro nonfocal IMAGING: CTA Head and neck: No severe stenosis or occlusion. Atherosclerosis. ECHO: Technically difficult study. Patient unable to stay awake and compliant with breath-hold. Normal LV size and systolic function. LVEF is 65 to 70%. RV appears dilated in certain views. Biatrial enlargement. Mild tricuspid regurgitation. Ascending aorta measures 3.9 cm. Other findings as below. Head CT: No acute intracranial pathology. CXR: Unchanged cardiomegaly. No gross infiltrates. Hospital course 1. Weakness, active. Much improved. 2. Volume depletion, resolved. 3. Hypokalemia, improved. 4. UTI, improved. 5. Chronic medical problems: Chronic kidney disease, TBI, PAF, CVA, hypertension. 6. Memory Loss PLAN: The patient has done well with management of his UTI and physical therapy. He is now able to discharge directly home with outpatient follow-up with his primary care provider within 2 weeks for close monitoring of blood pressure.. Has completed an adequate course of antibiotics for the UTI and does not require oral antibiotics at discharge. He should resume all his usual outpatient medications after discharge. Discharge Providers Provider Date of admission: 09/08/25 13:20 Discharge Date: 09/15/25 Primary care physician: Ryne Manuel MD Consults: 09/08/25 09:34 Consult to [facility] [place] - Developer Designer Stat Comment: Developer Designer Consult needed for:: Other reason (Comment) Comment: hoarding conditions. 09/08/25 15:12 Consult to Occupational Therapy Evaluate & Treat Comment: Physician Instructions: Evaluate and treat Consult to Physical Therapy Evaluate & Treat Comment: Physician Instructions: Evaluate and Treat Discharge provider: Shonda Greenberg MD Exam Vital Signs (past 8 hours): - 09/15/25 08:52 09/15/25 09:07 09/15/25 09:07 Temperature 97.8 F Pulse Rate 60 Respiratory Rate 16 Blood Pressure 192/75 H 192/75 H 192/75 H Pulse Oximetry 95 Oxygen Flow Rate 0 Oxygen Delivery Method Room Air Oxygen Flow Rate 0 Objective Labs 09/14/25 05:40 09/14/25 05:40 Labs: Laboratory Results - last 24 hr 09/15/25 07:35 POC Whole Bld Glucose 101 H PFSH Medical History (Updated 09/08/25 @ 14:34 by Hever Perez MD) Primary osteoarthritis of both knees Diverticulitis of colon with perforation Chronic kidney disease Fistula of gallbladder Traumatic brain injury Diverticulosis Paroxysmal atrial fibrillation CVA (cerebral vascular accident) Hypertension Closed head injury Surgical History Hx of appendectomy Hx of cholecystectomy History of hemicolectomy H/O exploratory laparotomy Hx of colonoscopy H/O abdominal surgery H/O ileostomy Family History Mother Kidney disease Father No problems noted. Sister Kidney disease Kidney cysts Social History household members: none Smoking Status: Former smoker alcohol intake: current Discharge Plan Discharge Plan Patient Disposition: Home Discharge orders & Medications Prescriptions: Continued carvedilol [Coreg] 25 mg tablet 25 mg PO BID Rx Instructions: must administer with a meal/food losartan [Cozaar] 100 mg tablet 100 mg PO DAILY ascorbate calcium (vitamin C) 500 mg tablet 500 mg PO DAILY atorvastatin [Lipitor] 20 mg Tablet 40 mg PO BEDTIME Qty: 30 0RF Eliquis 5 mg tablet 5 mg PO BID Patient Comments: TAKE 1 TABLET BY MOUTH TWICE A DAY Follow up/Referrals: Ryne Manuel MD [Primary Care Provider, [facility]] Discharge Health Status Multidrug resistant organism: No MDRO Diet/Activity/Treatments Diet: Diet as Tolerated Skin/Wound/Dressing Care Report to your healthcare provider any signs of infection, such as:: chills, fever and night sweats Visit Report/Discharge Packet Stand Alone Forms: Patient Portal/API, Stroke Signs & Symptoms Discharge Data Primary Care Provider: Ryne Manuel Quality VTE Deep Vein Thrombosis/Pulmonary Embolism Present on Admission: No
--- NOTE | 2025-09-15 10:28 | CM.DPC ---
Reviewed EMR and team rounds for pt's medical status and updates. Pt has been medically cleared for home discharge. [employer] will transport him home. No further CM d/c needs are identified at this time.
--- NOTE | 2025-09-15 10:52 | PC.NURSE ---
Pt received D/C orders, Sitting in chair this morning. Denies discomfort. Sl D/C intact; home instructions given w/ understanding. Pt states he is able to get out of taxi and into apartment (apartment has elevator) Taxi to arrive @ 1100 Pt escorted by staff via W/C to taxi D/C in stable status
== END 2025-09-15 11:06 | disposition home or self-care (01) | DRG 690 ==
LOC: ED 12:15 → AC 13:20
PROVIDERS: Internal Medicine; Admitting Provider Internal Medicine; Emergency Provider Emergency Medicine; PCP Family Medicine; Visit Provider Internal Medicine
DX: N39.0 Urinary tract infection, site not specified (principal); I69.354 Hemiplegia and hemiparesis following cerebral infarction affecting left non-dominant side; R62.7 Adult failure to thrive; R26.89 Other abnormalities of gait and mobility; E86.0 Dehydration; R53.1 Weakness; E87.6 Hypokalemia; I12.9 Hypertensive chronic kidney disease with stage 1 through stage 4 chronic kidney disease, or unspecified chronic kidney disease; N18.9 Chronic kidney disease, unspecified; R79.89 Other specified abnormal findings of blood chemistry; I48.0 Paroxysmal atrial fibrillation; R41.3 Other amnesia; W18.30XA Fall on same level, unspecified, initial encounter; Z87.891 Personal history of nicotine dependence; Z79.01 Long term (current) use of anticoagulants
CPT/HCPCS: 36415; 51798; 70450; 70496; 70498; 71045; 80048; 80053; 80305; 80320; 81001; 82550; 82805; 82962; 83605; 84439; 84443; 84484; 85025; 85610; 85730; 87040; 87077; 87086; 87186; 93005; 93306; 96361; 96374; 96375; 97116; 97129; 97162; 97166; 97530; 97535; 99284; J0360; J0696; J2270; J7030; J7050; Q9967